=== PATIENT | female | born 1955 | race Caucasian/White ===

== ENCOUNTER → 2018-04-13 13:49 | Outpatient (CLI) | payer MEDICAID, SELFPAY ==
[2018-04-13 16:42] LABS: Anion Gap 12 (5-15); BUN 4 mg/dL (7-18); BUN/Creat Ratio 6.5 RATIO (10-20); Calcium,Total 9.3 mg/dL (8.5-10.1); Chloride 98 mmol/L (98-107); Cholesterol 170 mg/dL (200); Creatinine, Serum 0.62 mg/dL (0.55-1.02); EST Glomerular Filtration Rate 104 mL/min (>60); Est Glom Filt Rate - Afr Amer 126 mL/min (>60); Glucose 74 mg/dL (74-106); High Density Lipoprotein 90 mg/dL; Potassium 3.3 mmol/L (3.5-5.1); Sodium Level 138 mmol/L (136-145); Triglycerides 97 mg/dL; Very Low Density Lipoprotein 19 mg/dL (5-40)
== END ==
PROVIDERS: Visit Provider Family Medicine
DX: I10 Essential (primary) hypertension (principal); E78.5 Hyperlipidemia, unspecified
CPT/HCPCS: 36415; 80048; 80061

== ENCOUNTER → 2018-11-09 11:08 | Outpatient (CLI) | payer MEDICAID, SELFPAY ==
[2018-11-09 12:59] LABS: ALB/GLOB Ratio 1.1 RATIO (0.9-2.4); AST(SGOT) 31 U/L (15-37); Alanine Aminotransfer ALT/SGPT 23 U/L (13-56); Albumin, Serum 3.7 g/dL (3.2-5.0); Alkaline Phosphatase 94 U/L (45-117); Anion Gap 13 (5-15); BUN 5 mg/dL (7-18); BUN/Creat Ratio 7.8 RATIO (10-20); Calcium,Total 9.6 mg/dL (8.5-10.1); Chloride 99 mmol/L (98-107); Cholesterol 155 mg/dL (200); Creatinine, Serum 0.64 mg/dL (0.55-1.02); EST Glomerular Filtration Rate 99 mL/min (>60); Est Glom Filt Rate - Afr Amer 120 mL/min (>60); Globulin 3.5 g/dL (2.2-4.2); Glucose 108 mg/dL (74-106); High Density Lipoprotein 56 mg/dL; Potassium 3.9 mmol/L (3.5-5.1); Protein, Total 7.2 g/dL (6.4-8.2); Sodium Level 136 mmol/L (136-145); Triglycerides 95 mg/dL; Very Low Density Lipoprotein 19 mg/dL (5-40)
== END ==
PROVIDERS: Visit Provider Family Medicine
DX: E78.5 Hyperlipidemia, unspecified (principal)
CPT/HCPCS: 36415; 80053; 80061

== ENCOUNTER 2021-02-15 12:36 | Inpatient (IN) | payer MEDICARE, BC, SELFPAY ==
[2021-02-15] VITALS (10 sets, daily range): BP systolic 88–131; BP diastolic 65–93; PULSE 75–101; RESP 14–18; TEMP 35.8–37.1; O2SAT 97–100; BMI 19.5; BMI 19.8
--- NOTE | 2021-02-15 12:54 | EX.ED.DYSGE1 ---
HPI History of Present Illness Chief Complaint: Dizziness Informant: patient and spouse/S.O. Narrative Narrative: 66-year-old female presenting with 3 weeks of dizziness and leg heaviness. She notes that the past 6 months she has lost approximately 20 pounds most within the last 2 weeks she states. She notes nausea. She states she has been drinking fluids but she has been eating very little solid food for no particular reason. She notes that she felt like she was going to pass out today after the shower. She is a 2 pack-a-day smoker. She has not discussed this with her primary care physician. PFSH PFSH Medical History Hypertension Osteoarthritis Smoker Allergy/AdvReac Type Severity Reaction Status Date / Time No Known Allergies Allergy Verified 02/15/21 12:40 Social History Smoking Status: Heavy Smoker (>10/day) ROS ROS ED Constitutional Constitutional ED: Reports weight loss and other Details: Fatigue ; Denies chills Eyes Eyes: Denies change in vision or diplopia ENT ENT ED: Denies ear pain, rhinorrhea or sore throat Cardiovascular Cardiovascular: Denies chest pain, orthopnea, palpitations or racing heartbeat Respiratory/Chest Respiratory/Chest: Denies cough, dyspnea or orthopnea Gastrointestinal Gastrointestinal: Reports nausea; Denies abdominal pain, diarrhea or vomiting Genitourinary Genitourinary ED: Denies dysuria, hematuria or urinary frequency Musculoskeletal Musculoskeletal: Denies arthralgias or myalgias Integumentary Denies abscess or rash Neurologic Neurologic: Reports other Details: Dizziness ; Denies headache(s) or weakness Psychiatric Psychiatric: Denies anxiety, depression, suicidal ideation or suicidal thoughts Endocrine Endocrinology: Denies polydipsia, polyphagia or polyuria Allergic/Immunologic Allergic/Immunologic ED: Denies mouth swelling, tongue swelling or urticaria EXAM Physical Exam Const Vital Signs: 02/15/21 12:38 02/15/21 13:37 02/15/21 14:52 Temperature 96.4 F L Temperature Source Temporal Pulse Rate 98 85 Pulse Rate [Lying] 91 Pulse Rate [Sitting] 86 Pulse Rate [Standing] 101 H Respiratory Rate 18 14 Respiratory Effort Normal Respiratory Pattern Normal Blood Pressure 118/78 128/81 H Blood Pressure [Lying] 121/68 H Blood Pressure [Sitting] 107/88 H Blood Pressure [Standing] 88/65 L Blood Pressure Mean 91 96 Blood Pressure Mean [Lying] 85 Blood Pressure Mean [Sitting] 94 Blood Pressure Mean [Standing] 72 Pulse Ox 100 99 Oxygen Delivery Method Room Air Room Air 02/15/21 15:02 Temperature Temperature Source Pulse Rate 78 Pulse Rate [Lying] Pulse Rate [Sitting] Pulse Rate [Standing] Respiratory Rate 15 Respiratory Effort Respiratory Pattern Blood Pressure 89/76 L Blood Pressure [Lying] Blood Pressure [Sitting] Blood Pressure [Standing] Blood Pressure Mean 80 Blood Pressure Mean [Lying] Blood Pressure Mean [Sitting] Blood Pressure Mean [Standing] Pulse Ox 99 Oxygen Delivery Method Room Air Positive well nourished and well developed General Appearance ED: well developed HEENT Reports normocephalic, head/scalp atraumatic and moist mucous membranes Eyes PERRL and EOMs intact bilaterally Neck no lymphadenopathy, supple and no JVD Resp normal respiratory effort and clear to auscultation bilaterally Cardio regular rate, regular rhythm and no murmurs GI normal to inspection, nondistended, normoactive bowel sounds and non-tender Palpation: soft Back/Spine no CVA tenderness and normal ROM Extremity normal to inspection General Extremety ED: Negative for edema General Extremity: Negative for edema Neuro oriented x3 and CN's II-XII intact bilaterally Sensorium / Orientation: alert Motor Exam: strength 5/5 throughout Psych mental status grossly normal Mood & Affect: Negative for depressed or tearful Skin no rashes or lesions noted and no wounds MDM MDM MDM Narrative Medical decision making narrative: My interpretation of the patient's portable chest x-ray is no acute process. CT the brain was obtained to rule out central cause of her nausea/dizzy. CT of the abdomen pelvis demonstrates some mild inflammatory changes of the terminal ileum and cecum. I reexamined the patient her abdomen is benign. There is no focal tenderness there. Patient is orthostatic positive. Her hemoglobin is 9.8. Unfortunately I cannot find any recent hemoglobin levels to compare this to. Though her MCV is normal. Her Hemoccult is positive. However the stool is brown. Slight irregularities to her total bilirubin and her transaminases and alk phos. Troponin negative. Coags normal. Patient is orthostatic positive and received IV fluids. I spoke with our surgeon Dr. Worrell and with our hospitalist plan is admission Lab Data Attestation: I reviewed the patient's lab results. Labs: Laboratory Results - last 24 hr 02/15/21 02/15/21 02/15/21 13:30 13:31 13:31 WBC 7.4 RBC 3.17 L Hgb 9.8 L Hct 30.3 L MCV 95.6 MCH 30.9 MCHC 32.3 RDW Std Deviation 73.5 H RDW Coeff of Ismael 20.7 H Plt Count 239 MPV 9.8 Immature Gran % (Auto) 1.200 H Neut % (Auto) 74.7 H Lymph % (Auto) 10.8 L [place] % (Auto) 11.8 H Eos % (Auto) 1.1 Baso % (Auto) 0.4 Absolute Neuts (auto) 5.5 Absolute Lymphs (auto) 0.80 L Nucleated RBC % 0 Anisocytosis 1+ PT 13.2 INR 1.1 APTT 26.6 Sodium 131 L Potassium 3.2 L Chloride 98 Carbon Dioxide 22.0 Anion Gap 11 BUN 7 Creatinine 0.39 L Estim Creat Clear Calc 43.59 Est GFR (MDRD) Af Amer 212 Est GFR (MDRD) Non-Af 175 BUN/Creatinine Ratio 18.0 Glucose 100 Calcium 8.4 L Total Bilirubin 1.40 H AST 83 H ALT 10 L Alkaline Phosphatase 152 H Troponin I < 0.015 Total Protein 6.4 Albumin 2.7 L Globulin 3.7 Albumin/Globulin Ratio 0.7 L Lipase 107 Urine Color Urine Clarity Urine pH Ur Specific [place] Urine Protein Urine Glucose (UA) Urine Ketones Urine Occult Blood Urine Nitrite Urine Bilirubin Urine Urobilinogen Ur Leukocyte Esterase Urine RBC Urine WBC Ur Squamous Epith Cells Urine Bacteria Urine Mucus 02/15/21 14:51 WBC RBC Hgb Hct MCV MCH MCHC RDW Std Deviation RDW Coeff of Ismael Plt Count MPV Immature Gran % (Auto) Neut % (Auto) Lymph % (Auto) [place] % (Auto) Eos % (Auto) Baso % (Auto) Absolute Neuts (auto) Absolute Lymphs (auto) Nucleated RBC % Anisocytosis PT INR APTT Sodium Potassium Chloride Carbon Dioxide Anion Gap BUN Creatinine Estim Creat Clear Calc Est GFR (MDRD) Af Amer Est GFR (MDRD) Non-Af BUN/Creatinine Ratio Glucose Calcium Total Bilirubin AST ALT Alkaline Phosphatase Troponin I Total Protein Albumin Globulin Albumin/Globulin Ratio Lipase Urine Color Yellow Urine Clarity Clear Urine pH 8.0 Ur Specific [place] 1.010 Urine Protein Negative Urine Glucose (UA) Normal Urine Ketones 15 H Urine Occult Blood Negative Urine Nitrite Negative Urine Bilirubin Negative Urine Urobilinogen Normal Ur Leukocyte Esterase Negative Urine RBC 0 SEEN Urine WBC 0 SEEN Ur Squamous Epith Cells 0-5 SEEN Urine Bacteria RARE Urine Mucus 0 SEEN Radiography Diagnostic Testing: Radiology Impression Brain CT 02/15/21 13:16 IMPRESSION: Chronic involutional changes of the brain. Electronically Signed: Allen Leigh MD at 13:49 EDT , Service support , Chest X-Ray 02/15/21 13:20 IMPRESSION: No acute abnormality is seen. Electronically Signed: Allen Leigh MD at 13:52 EDT , Service support , Abdomen/Pelvis CT 02/15/21 14:23 IMPRESSION: Inflammatory changes are seen in the terminal ileum and cecal region. Inflammatory process should be ruled out. Minimal amount of free fluid is seen in the cul-de-sac. Electronically Signed: Allen Leigh MD at 14:49 EDT , Service support , EKG Initial EKG: Attestation: I personally reviewed and interpreted this EKG as follows: Comments: EKG shows a normal sinus rhythm at a rate of 94. Discharge Plan Dx/Rx/DC Orders Clinical Impression: GI bleed, Orthostatic hypotension, Anemia, Abnormal weight loss Disposition Disposition: Acute Care [facility]
--- NOTE | 2021-02-15 13:03 | EKG12_ITS ---
Test Reason : DIZZINESS Blood Pressure : / mmHG Vent. Rate : 094 BPM Atrial Rate : 094 BPM P-R Int : 130 ms QRS Dur : 070 ms QT Int : 370 ms P-R-T Axes : 080 014 070 degrees QTc Int : 462 ms Normal sinus rhythm Nonspecific ST and T wave abnormality Abnormal ECG Confirmed by NELY ARSHAD, COLBY ([id number]), writer editor LOUISA FLOREZ ([id number]) on 02/19/2021 2:49:53 PM Referred By: SHASTA/ Confirmed By:COLBY MCKAY MD
--- NOTE | 2021-02-15 13:16 | CT_ITS ---
STUDY: CT BRAIN WITHOUT CONTRAST REASON FOR EXAM: 3 week history of dizziness., 66 year old. Female RADIATION DOSAGE (If Supplied By Facility): CTDIvol = ( 38.43 ) mGy, DLP = ( 698.28 ) mGycm TECHNIQUE: Transaxial CT imaging of the brain was performed without administration of intravenous contrast material. Individualized dose optimization techniques were used for this CT. COMPARISON: No relevant priors. FINDINGS: Normal soft tissue structures. Normal calvarium. There is mild cerebral atrophy with widening of the extra-axial spaces and ventricular dilatation. There are areas of decreased attenuation within the white matter tracts of the supratentorial brain, consistent with microvascular disease changes. Normal basal ganglia and thalami. Normal brainstem. There is mild cerebellar atrophy. There is no intracranial hemorrhage. There are no findings of an acute ischemic infarction. Normal visualized paranasal sinuses. CT/Brain/Head without Contrast IMPRESSION: Chronic involutional changes of the brain. Electronically Signed: Allen Leigh MD at 13:49 EDT , Service support ,
--- NOTE | 2021-02-15 13:20 | RAD_ITS ---
STUDY: X-RAY CHEST REASON FOR EXAM: Dizziness., 66 year old. Female patient. TECHNIQUE: Single AP portable view of the chest. COMPARISON: None. FINDINGS: The lungs are clear and expanded. There is no demonstrated pleural abnormality. Normal size heart. Normal mediastinum and michele. Normal visualized pulmonary arteries. There is atherosclerotic tortuosity of the aortic arch and descending thoracic aorta. Normal visualized thoracic spine. Normal visualized ribs, clavicles, and shoulders. There is no demonstrated abnormality of the visualized soft tissue structures of the upper abdomen. RAD/Chest 1 View (Portable) IMPRESSION: No acute abnormality is seen. Electronically Signed: Allen Leigh MD at 13:52 EDT , Service support ,
[2021-02-15] MEDS: 0.9% Normal Saline 1,000 ML 1000 ML IV (13:36)
[2021-02-15] MEDS: Ondansetron 4 MG/2 ML Vial IV (13:36)
[2021-02-15 13:40] LABS: Absolute Neutrophil Count 5.5 X10^3/uL (2.0-7.7); Basophil# 0.03 X10^3/uL; Basophil% 0.4 % (0-1); Eosinophil# 0.08 X10^3/uL; Eosinophils% 1.1 % (0-5); Hematocrit 30.3 % (37-47); Hemoglobin 9.8 g/dL (12.0-15.0); Lymphocyte % 10.8 % (19-41); Mean Corp Hgb Conc 32.3 g/dL (32-36); Mean Corpuscular Hgb 30.9 pg (27.0-32.0); Mean Corpuscular Volume 95.6 fL (81-99); Mean Platelet Vol. 9.8 fl (6.2-12.0); Monocyte# 0.87 X10^3/uL; Monocyte% 11.8 % (0-10); NRBC Flagged by Analyzer 0 % (0-5); Neutrophil # 5.51 X10^3/uL (2.7-7.7); Neutrophil % 74.7 % (47-70); POSITIVE MORPHOLOGY YES; Platelet Count 239 K/mm3 (150-450); RBC Distribution Width CV 20.7 % (11.6-14.6); RBC Distribution Width SD 73.5 fl (35.1-43.9); Red Blood Count 3.17 M/mm3 (4.2-5.4); White Blood Count 7.4 K/mm3 (4.4-11.0)
[2021-02-15 13:42] LABS: Differential Indicated SCAN CRITERIA MET
[2021-02-15 13:56] LABS: International Normalized Ratio 1.1; Prothrombin Time (Protime)PT. 13.2 SECONDS (11.7-14.9)
[2021-02-15 13:57] LABS: Partial Thromboplast Time 26.6 Seconds (24.1-36.2)
[2021-02-15 14:04] LABS: ALB/GLOB Ratio 0.7 RATIO (0.9-2.4); AST(SGOT) 83 U/L (15-37); Alanine Aminotransfer ALT/SGPT 10 U/L (13-56); Albumin, Serum 2.7 g/dL (3.2-5.0); Alkaline Phosphatase 152 U/L (45-117); Anion Gap 11 (5-15); BUN 7 mg/dL (7-18); Calcium,Total 8.4 mg/dL (8.5-10.1); Chloride 98 mmol/L (98-107); Creatinine, Serum 0.39 mg/dL (0.55-1.02); EST Glomerular Filtration Rate 175 mL/min (>60); Est Glom Filt Rate - Afr Amer 212 mL/min (>60); Estimated Creatinine Clearance 43.59 ml/min; Globulin 3.7 g/dL (2.2-4.2); Glucose 100 mg/dL (74-106); Lipase 107 U/L (73-393); Potassium 3.2 mmol/L (3.5-5.1); Protein, Total 6.4 g/dL (6.4-8.2); Sodium Level 131 mmol/L (136-145)
--- NOTE | 2021-02-15 14:23 | CT_ITS ---
STUDY: CT ABDOMEN AND PELVIS WITH CONTRAST REASON FOR EXAM: Female, 66 years old. Nausea and weight loss. RADIATION DOSAGE (If Supplied By Facility): CTDIvol = ( 13.18 ) mGy, DLP = ( 324.50 ) mGycm TECHNIQUE: Transaxial images were obtained from the dome of the diaphragm to the symphysis pubis without oral contrast. IV 100mL [id number]-300 was administered. Sagittal and coronal images were reconstructed. Individualized dose optimization techniques were used for this CT. COMPARISON: None. FINDINGS: The visualized lung bases are unremarkable. The visualized portions of the heart are within normal limits. There is decreased attenuation of the liver consistent with steatosis. Normal gallbladder and extrahepatic biliary system. Normal spleen. Normal pancreas. Normal bilateral adrenal glands. Normal right kidney. Normal left kidney. There is a small hiatal hernia. Mild degree of inflammatory changes seen in the region of the terminal ileum as well as the cecum. Inflammatory process should be ruled out. The appendix is visualized and appears normal. There is scattered atherosclerotic calcification of the abdominal aorta, without a demonstrated aneurysm. Normal inferior vena cava. Normal retroperitoneum. Normal urinary bladder. Minimal amount of free fluid is seen in the cul-de-sac. There is evidence of bilateral tubal clip ligation. Normal abdominal wall. There are mild degenerative changes of the visualized lumbar spine. CT/Abdomen/Pelvis W IV Cont ONLY IMPRESSION: Inflammatory changes are seen in the terminal ileum and cecal region. Inflammatory process should be ruled out. Minimal amount of free fluid is seen in the cul-de-sac. Electronically Signed: Allen Leigh MD at 14:49 EDT , Service support ,
--- NOTE | 2021-02-15 14:23 | NURSING ---
NO OLD EKGS
[2021-02-15 14:26] LABS: Anisocytosis 1+
[2021-02-15 14:59] LABS: Mucous, Urine 0 SEEN /hpf (<or=2+); Red Blood Cells-Urine 0 SEEN /hpf (0-5); White Blood Cells 0 SEEN /hpf (0-5)
[2021-02-15 15:18] LABS: Color, Urine Yellow (Yellow); Glucose, Dipstick Normal (Normal); Ketone-Dipstick 15 mg/dl (Negative); Leukocyte Esterase-Dipstick Negative /ul (Negative); Nitrite-Dipstick Negative (Negative); Occult Blood-Urine Negative /ul (Negative); Protein-Dipstick Negative (Negative); Urine Bilirubin Dipstick Negative (Negative); Urine Clarity Clear (Clear); Urine Urobilinogen Normal (Normal)
[2021-02-15 15:48] LABS: Bacteria RARE /hpf (None Seen); Squamous Epithelial Cells - UA 0-5 SEEN /hpf (5-10)
[2021-02-15] MEDS: 0.9% Normal Saline 1,000 ML 999 ML IV (16:09)
--- NOTE | 2021-02-15 17:29 | PCM.HP.STD ---
[facility] - General General Date of Admission: 02/15/21 Chief Complaint: Weakness, dizziness. [facility] Narrative VEENA STEPHENSON, is a 66 F with past medical history as mentioned below presented to the emergency room because of weakness and dizziness. Her symptoms started around 3 weeks ago with vague generalized weakness and tiredness, associated with dizziness upon standing, has been progressively increasing and today, she tried to stand up, felt dizzy and she was about to pass out. She stated that her legs have been heavy with difficulty walking. She denied chest pain, shortness of breath, syncope or loss of consciousness. She reported constipation with dark stools but now this, her stool has been normal and brown. She reported weight loss of about 20 pounds in the last 2 to 3 weeks but also reported poor appetite. She denied hemoptysis, hematemesis, hematuria or hematochezia. In the emergency department, initial blood pressure was stable and then started to come down. Her orthostatic vitals were positive for orthostatic hypotension. She was afebrile, not tachycardic, pulse ox was 99% on room air. Routine blood work was remarkable for hemoglobin of 9.8 g/dL, sodium was 131, potassium is 3.2. LFT revealed bilirubin of 1.4, AST 83, ALT was 10 and alk phos was 152. EKG revealed normal sinus rhythm without evidence of acute ischemic changes. CT scan brain showed no acute infarct or hemorrhage. Chest x-ray showed no acute findings. CT scan abdomen and pelvis with contrast revealed normal gallbladder, normal extrahepatic biliary system, inflammatory changes of the terminal ileum and cecal region. Patient is being admitted for anemia probably due to GI bleed, orthostatic hypotension and ileal and cecal inflammatory changes on the CT scan abdomen. [facility] Medical History Hypertension Osteoarthritis Smoker Home Medications amlodipine 5 mg PO DAILY 02/15/21 [History Last Taken 02/15/21] atorvastatin 20 mg PO DAILY 02/15/21 [History Last Taken 02/15/21] latanoprost 1 drp EACH EYE BID 02/15/21 [History Last Taken 02/15/21] metoprolol succinate 50 mg PO DAILY 02/15/21 [History Last Taken 02/15/21] triamterene-hydrochlorothiazid 1 tab PO DAILY 02/15/21 [History Last Taken 02/15/21] Allergy/AdvReac Type Severity Reaction Status Date / Time No Known Allergies Allergy Verified 02/15/21 12:40 no significant family history no surgical history Social History (Updated 02/15/21 @ 17:[address] Bayron Holloway MD) Smoking Status: Heavy Smoker (>10/day) details: She drinks alcohol occasionally. She did not drink for the last 4 weeks. ROS Constitutional Constitutional: Reports anorexia, change in weight, fatigue, weakness and other; Denies chills, fever(s) or malaise Eyes Eyes: Denies blurry vision, change in eye color, change in vision, double vision or eye pain ENT HEENT: Denies ear pain, epistaxis, headache(s), nasal congestion, post nasal drip or sore throat Cardiovascular Cardiovascular: Reports lightheadedness; Denies chest pain, dyspnea on exertion, edema, orthopnea, palpitations, paroxysmal nocturnal dyspnea or syncope Respiratory/Chest Respiratory/Chest: Denies cough, dyspnea, hemoptysis, productive cough, shortness of breath at rest, shortness of breath with exertion or wheezing Gastrointestinal Gastrointestinal: Reports constipation and melena; Denies abdominal pain, diarrhea, hematemesis, hematochezia, nausea or vomiting Genitourinary Genitourinary: Denies burning urination, dysuria, hematuria, urinary hesitancy or urinary urgency Musculoskeletal Musculoskeletal: Denies arthralgias, back pain, joint pain, joint swelling, myalgias or neck pain Neurologic Neurologic: Denies confusion, dizziness, focal weakness, headache(s), numbness, paresthesias, seizures, tingling or tremor(s) Psychiatric Psychiatric: Denies anxiety, depression, homicidal ideation or suicidal ideation Endocrine Endocrinology: Denies change in body appearance, cold intolerance, heat intolerance, polydipsia or polyuria Hematologic/Lymphatic Hematologic/Lymphatic: Reports other; Denies easy bleeding, easy bruising or lymphadenopathy Allergic/Immunologic Allergic/Immunologic: Denies itchy eyes, rhinitis, throat swelling, tongue swelling, hives, urticaria or wheezing Vital Signs Vital Signs Vital Signs: 02/15/21 12:38 02/15/21 13:37 02/15/21 14:52 Temperature 96.4 F L Temperature Source Temporal Pulse Rate 98 85 Pulse Rate [Lying] 91 Pulse Rate [Sitting] 86 Pulse Rate [Standing] 101 H Respiratory Rate 18 14 Respiratory Effort Normal Respiratory Pattern Normal Blood Pressure 118/78 128/81 H Blood Pressure [Lying] 121/68 H Blood Pressure [Sitting] 107/88 H Blood Pressure [Standing] 88/65 L Blood Pressure Mean 91 96 Blood Pressure Mean [Lying] 85 Blood Pressure Mean [Sitting] 94 Blood Pressure Mean [Standing] 72 Pulse Ox 100 99 Oxygen Delivery Method Room Air Room Air 02/15/21 15:02 Temperature Temperature Source Pulse Rate 78 Pulse Rate [Lying] Pulse Rate [Sitting] Pulse Rate [Standing] Respiratory Rate 15 Respiratory Effort Respiratory Pattern Blood Pressure 89/76 L Blood Pressure [Lying] Blood Pressure [Sitting] Blood Pressure [Standing] Blood Pressure Mean 80 Blood Pressure Mean [Lying] Blood Pressure Mean [Sitting] Blood Pressure Mean [Standing] Pulse Ox 99 Oxygen Delivery Method Room Air Physical Exam Const alert, oriented x3, no apparent distress and no limitations General Appearance: cooperative, comfortable and well kempt HEENT normocephalic, head/scalp atraumatic and moist oral mucous membranes Head and Scalp: normocephalic and atraumatic Eyes PERRL, EOMs intact bilaterally, conjunctivae normal and no scleral icterus General Eye: normal appearance of both eyes Periorbital: periorbital findings normal Neck no lymphadenopathy, supple, no meningeal signs, no JVD and no carotid bruits General: trachea midline Thyroid: thyroid normal Resp normal respiratory effort, normal air movement and clear to auscultation bilaterally Auscultation: Negative for crackles, rales, rhonchi or wheezes Cardio regular rate, regular rhythm, S1 normal heart sound, S2 normal heart sound, no murmurs and no JVD Peripheral Pulses: pulses 2+ throughout GI normal to inspection, nondistended, normoactive bowel sounds, soft to palpation, non-tender and non-distended; Negative for hepatosplenomegaly Auscultation: normoactive bowel sounds Extremity normal to inspection, full ROM and no clubbing, cyanosis or edema Skin no rashes or lesions noted, no wounds and no petechiae Neuro oriented x3, CN's II-XII intact bilaterally and moves all extremities Sensorium / Orientation: alert Speech: speech normal Motor Exam: strength 5/5 throughout Psych mental status grossly normal, affect normal and denies hallucinations Lab / Micro Data Result Diagrams: 02/15/21 13:31 02/15/21 13:30 Labs: Laboratory Results - last 24 hr 02/15/21 02/15/21 02/15/21 13:30 13:31 13:31 WBC 7.4 RBC 3.17 L Hgb 9.8 L Hct 30.3 L MCV 95.6 MCH 30.9 MCHC 32.3 RDW Std Deviation 73.5 H RDW Coeff of Ismael 20.7 H Plt Count 239 MPV 9.8 Immature Gran % (Auto) 1.200 H Neut % (Auto) 74.7 H Lymph % (Auto) 10.8 L [place] % (Auto) 11.8 H Eos % (Auto) 1.1 Baso % (Auto) 0.4 Absolute Neuts (auto) 5.5 Absolute Lymphs (auto) 0.80 L Nucleated RBC % 0 Anisocytosis 1+ PT 13.2 INR 1.1 APTT 26.6 Sodium 131 L Potassium 3.2 L Chloride 98 Carbon Dioxide 22.0 Anion Gap 11 BUN 7 Creatinine 0.39 L Estim Creat Clear Calc 43.59 Est GFR (MDRD) Af Amer 212 Est GFR (MDRD) Non-Af 175 BUN/Creatinine Ratio 18.0 Glucose 100 Calcium 8.4 L Total Bilirubin 1.40 H AST 83 H ALT 10 L Alkaline Phosphatase 152 H Troponin I < 0.015 Total Protein 6.4 Albumin 2.7 L Globulin 3.7 Albumin/Globulin Ratio 0.7 L Lipase 107 Urine Color Urine Clarity Urine pH Ur Specific [place] Urine Protein Urine Glucose (UA) Urine Ketones Urine Occult Blood Urine Nitrite Urine Bilirubin Urine Urobilinogen Ur Leukocyte Esterase Urine RBC Urine WBC Ur Squamous Epith Cells Urine Bacteria Urine Mucus 02/15/21 14:51 WBC RBC Hgb Hct MCV MCH MCHC RDW Std Deviation RDW Coeff of [place] Plt Count MPV Immature Gran % (Auto) Neut % (Auto) Lymph % (Auto) [place] % (Auto) Eos % (Auto) Baso % (Auto) Absolute Neuts (auto) Absolute Lymphs (auto) Nucleated RBC % Anisocytosis PT INR APTT Sodium Potassium Chloride Carbon Dioxide Anion Gap BUN Creatinine Estim Creat Clear Calc Est GFR (MDRD) Af Amer Est GFR (MDRD) Non-Af BUN/Creatinine Ratio Glucose Calcium Total Bilirubin AST ALT Alkaline Phosphatase Troponin I Total Protein Albumin Globulin Albumin/Globulin Ratio Lipase Urine Color Yellow Urine Clarity Clear Urine pH 8.0 Ur Specific [place] 1.010 Urine Protein Negative Urine Glucose (UA) Normal Urine Ketones 15 H Urine Occult Blood Negative Urine Nitrite Negative Urine Bilirubin Negative Urine Urobilinogen Normal Ur Leukocyte Esterase Negative Urine RBC 0 SEEN Urine WBC 0 SEEN Ur Squamous Epith Cells 0-5 SEEN Urine Bacteria RARE Urine Mucus 0 SEEN Micro: Microbiology 02/15/21 16:21 Stool Occult Blood (DARNELL) - Final Stool Occult Blood Positive Radiology Impression Brain CT 02/15/21 13:16 IMPRESSION: Chronic involutional changes of the brain. Electronically Signed: Allen Leigh MD at 13:49 EDT , Service support , Chest X-Ray 02/15/21 13:20 IMPRESSION: No acute abnormality is seen. Electronically Signed: Allen Leigh MD at 13:52 EDT , Service support , Abdomen/Pelvis CT 02/15/21 14:23 IMPRESSION: Inflammatory changes are seen in the terminal ileum and cecal region. Inflammatory process should be ruled out. Minimal amount of free fluid is seen in the cul-de-sac. Electronically Signed: Allen Leigh MD at 14:49 EDT , Service support , Assessment & Plan Assessment/Plan (1) GI bleed: (2) Orthostatic hypotension: (3) Anemia: (4) Abnormal weight loss: (5) Hyperlipidemia: (6) HTN (hypertension): PLAN: This is a 66 years old female patient presented to the emergency room because of weakness, dizziness and weight loss, found to have anemia related to GI bleed and also found to have inflammatory changes of the terminal ileum and cecum and she is being admitted for evaluation and treatment. #1 anemia/GI bleed: Patient reported melena days ago but now she has normal brown stool. Stool positive for occult blood. It is normocytic anemia. Admission globin is 9.8 g/dL, hemoglobin was 15.8 on December,. EKG reviewed, was unremarkable. Plan: Admit to PCU, cardiac monitoring, gentle IV fluids for hydration, start IV Protonix, type and crossmatch 1 unit of packed RBCs, transfuse if hemoglobin is than 8 g/dL, H&H every 8 hours x3, serum iron, TIBC, serum ferritin, B12, RBC folate, general surgery consult, repeat CBC and CMP tomorrow morning, PT OT evaluation and treatment. #2 orthostatic hypotension: Blood pressure improved with IV fluids but still orthostatic positive. Patient has been on Norvasc, metoprolol and HCTZ/triamterene. EKG reviewed, was unremarkable. This is probably due to blood loss in addition to be on 3 different antihypertensive medications. Plan: Gentle IV fluids, hold antihypertensive medications, orthostatic vitals tomorrow morning. #3 inflammation of the terminal ileum and cecum: This was seen on CT scan abdomen, nonspecific. Patient denied any diarrhea, reported constipation. Plan as above. #4 hypokalemia: Replace potassium with IV potassium chloride, check serum magnesium. #5 hypertension: Currently, blood pressure stabilized, plan as above, hold antihypertensive as above. #6 hyperlipidemia: Continue statins. #7 DVT prophylaxis: SCDs. This note was generated with [employer] dictation software. It may contain incorrect words, spelling, and punctuation that were not noted in checking the note before signing. Visit Charges Inpatient E&M: 41860 Init Hosp L3
[2021-02-15 19:18] LABS: Hematocrit 28.6 % (37-47); Hemoglobin 9.2 g/dL (12.0-15.0)
[2021-02-15] MEDS: 0.9% Normal Saline 1,000 ML 75 ML IV (19:27)
[2021-02-15] MEDS: 0.9% Saline Lock 10 ML Syringe IV (19:27)
[2021-02-15 19:34] LABS: Ferritin 1460 ng/mL (8-252); Iron Binding Capacity,Total 257 ug/dL (250-450); Magnesium 1.6 mg/dL (1.6-2.6); Thyroid Stim Hormone (TSH) 3.65 uIU/mL (0.358-3.74)
[2021-02-15] MEDS: Potassium Chloride 10mEq/100mL 10 MEQ/100 ML IV.SOLN. 100 MEQ IV BOLUS ×2 (20:49→22:20)
[2021-02-15] MEDS: Ensure Clear 120 ML Liquid PO (21:55)
[2021-02-15] MEDS: Latanoprost 0.005% 1 Bottle 1 DRP EACH EYE (21:57)
[2021-02-16] VITALS (23 sets, daily range): BP systolic 97–140; BP diastolic 7–86; PULSE 63–98; RESP 14–18; TEMP 36.3–37.2; O2SAT 99–100
--- NOTE | 2021-02-16 | GASB_PTH ---
PATIENT: VEENA STEPHENSON LOC: [facility] U#:[id number] AGE/SX: 66/F ROOM: [facility] RE02/15/[address]: Dr. Mario Mchugh DO : 1955 BED: 1 DIS: 02/17/2021 SPEC #: [id number] RECD: 02/16/21 13:59 STATUS: SONYA REJose #: [id number] MICHELLE: 02/16/21 00:[address]: Lula Márquez DEPT: SURGICAL PATHOLOGY RECD BY: Basim Glynn ENTERED: 02/16/21 13:59 SP TYPE: Gastric Bx OTHR DR: MD Dr. Mario Sandoval DO Dr. Paul Nielsen, MD Dr. Tamera Robotham, MD Tissues: Gastric mucous membrane Procedures: Surgery Specimen Level IV Comments: @ Ordering doctor for SUIV edited from to @ by JACINTA at 02/16/21 1544 @ Submitting doctor edited from to @ by RGOOD at 02/16/21 1544 HEADER OPERATION: [place] [place]OP DIAGNOSIS: GI bleed, anemia TISSUE SUBMITTED: Antrum biopsy for H. pylori and path MICROSCOPIC DIAGNOSIS Gastric antrum, biopsy: Chronic gastritis. See comment. AM:monisha 02/19/2021 COMMENT The results of immunohistochemistry for Helicobacter pylori will be reported separately ([id number]). MICROSCOPIC DESCRIPTION Slides are reviewed. GROSS DESCRIPTION Received in fixative is one container labeled with the patient's name and designated antrum biopsy. The specimen consists of one irregular fragment of light donald soft tissue that measures 0.3 x 0.2 x 0.1 cm. The specimen is totally submitted in one cassette. / SJ:monisha 02/16/21 TC:3 CPT: 26004
[2021-02-16 00:49] LABS: Hematocrit 24.6 % (37-47)
[2021-02-16 05:47] LABS: Absolute Lymphocyte Count 1.21 X10^3/uL (0.83-4.51); Absolute Neutrophil Count 2.9 X10^3/uL (2.0-7.7); Basophil# 0.03 X10^3/uL; Basophil% 0.6 % (0-1); Eosinophil# 0.09 X10^3/uL; Eosinophils% 1.8 % (0-5); Hematocrit 25.8 % (37-47); Hemoglobin 8.3 g/dL (12.0-15.0); Lymphocyte # 1.21 X10^3/ul (0.83-4.51); Lymphocyte % 24.3 % (19-41); Mean Corp Hgb Conc 32.2 g/dL (32-36); Mean Corpuscular Hgb 30.7 pg (27.0-32.0); Mean Corpuscular Volume 95.6 fL (81-99); Mean Platelet Vol. 10.3 fl (6.2-12.0); Monocyte# 0.68 X10^3/uL; Monocyte% 13.7 % (0-10); NRBC Flagged by Analyzer 0 % (0-5); Neutrophil # 2.91 X10^3/uL (2.7-7.7); Neutrophil % 58.4 % (47-70); POSITIVE MORPHOLOGY YES; Platelet Count 225 K/mm3 (150-450); RBC Distribution Width SD 74.8 fl (35.1-43.9)
[2021-02-16 06:03] LABS: Differential Indicated SCAN CRITERIA MET
[2021-02-16 06:12] LABS: ALB/GLOB Ratio 0.8 RATIO (0.9-2.4); AST(SGOT) 64 U/L (15-37); Alanine Aminotransfer ALT/SGPT 8 U/L (13-56); Albumin, Serum 2.3 g/dL (3.2-5.0); Alkaline Phosphatase 123 U/L (45-117); Anion Gap 10 (5-15); BUN 3 mg/dL (7-18); BUN/Creat Ratio 12.2 RATIO (10-20); Calcium,Total 7.5 mg/dL (8.5-10.1); Chloride 104 mmol/L (98-107); Creatinine, Serum 0.25 mg/dL (0.55-1.02); EST Glomerular Filtration Rate 297 mL/min (>60); Est Glom Filt Rate - Afr Amer 360 mL/min (>60); Estimated Creatinine Clearance 44.46 ml/min; Globulin 2.8 g/dL (2.2-4.2); Glucose 87 mg/dL (74-106); Protein, Total 5.1 g/dL (6.4-8.2); Sodium Level 137 mmol/L (136-145)
[2021-02-16 06:29] LABS: Anisocytosis 1+; Differential Comment SCANNED
[2021-02-16 06:30] LABS: Hypochromasia 2+
[2021-02-16] MEDS: Potassium Chloride Oral Tablet 20 MEQ 60 MEQ PO (07:02)
--- NOTE | 2021-02-16 08:14 | CON.PCM.SX_ITS ---
Assessment & Plan Assessment/Plan (1) GI bleed: (2) Orthostatic hypotension: (3) Anemia: PLAN: Currently patient denies any black stools or bright red stools. Patient dates stools have been brown. Patient states about 4 weeks ago she did have black stools denies taking Pepto-Bismol. We will plan to do an EGD today. Patient can have an outpatient follow-up colonoscopy with either me or Dr. Chavis. As Dr. Chavis did her last colonoscopy 5 years ago. Patient at that time she had a small polyp. I have discussed the above with the patient. I have offered the patient EGD for evaluation. I have explained the risks/benefits of the procedure and described the procedure. I have discussed the risks with the patient, including but not limited to: infection, bleeding, perforation of the GI tract requiring e mergency surgery, inability to complete the procedure, injury to any internal organs, complications of anesthesia, etc. - the patient understands and agrees to proceed. I have answered all the patient's questions to the patient's satisfaction and the patient has no further questions. Lula Márquez M.D. Pager: [phone] [facility] [address] [place] [address], [address] [place] [address] Office: [phone] . HPI Consult Data Date of Consult: 02/16/21 HPI Narrative HPI Narrative: VEENA STEPHENSON, is a 66 F who presented to the ER due to dizziness, weakness, legs are heavy. Patient notes this has been ongoing for about 2 weeks. Patient states about 4 weeks ago she did have some black stool x1 day after then she is had bowel movements about every other day which have been normal and brown. Patient denies any previous black or bloody stools. Patient's last colonoscopy was about [address] Chavis there is maybe 1 polyp per patient. Patient states her last EGD was about 30 years ago. Patient denies any reflux or heartburn unless she eats certain food. Patient's hemoglobin on admission was 9.8 currently is 8.3. Patient denies any abdominal pain currently or during this time. CT abdomen pelvis question whether could be some inflammation of the terminal ileum and cecum however this area is not distended on CAT scan patient has no pain this area nor has not had any pain in this area during this time. [facility] Medical History Anemia Hypertension Osteoarthritis Smoker Home Medications amlodipine 5 mg PO DAILY 02/15/21 [History Last Taken 02/15/21] atorvastatin 20 mg PO DAILY 02/15/21 [History Last Taken 02/15/21] latanoprost 1 drp EACH EYE BID 02/15/21 [History Last Taken 02/15/21] metoprolol succinate 50 mg PO DAILY 02/15/21 [History Last Taken 02/15/21] triamterene-hydrochlorothiazid 1 tab PO DAILY 02/15/21 [History Last Taken 02/15/21] Allergy/AdvReac Type Severity Reaction Status Date / Time bee venom protein (honey bee) Allergy Hives Verified 02/15/21 18:57 Social History (Updated 02/15/21 @ 17:[address] Bayron Holloway MD) Smoking Status: Current every day smoker details: She drinks alcohol occasionally. She did not drink for the last 4 weeks. ROS Constitutional Constitutional: Reports daytime sleepiness ENT HEENT: Reports dizziness Cardiovascular Cardiovascular: Denies chest pain Respiratory/Chest Respiratory/Chest: Denies shortness of breath at rest Gastrointestinal Gastrointestinal: Reports anorexia; Denies abdominal pain, constipation, diarrhea, heartburn, hematemesis, melena, nausea or vomiting Genitourinary Genitourinary: Denies burning urination Musculoskeletal Musculoskeletal: Denies joint pain Integumentary Integumentary: Denies rash Neurologic Neurologic: Reports dizziness; Denies abnormal speech Endocrine Endocrinology: Denies palpitations Hematologic/Lymphatic Hematologic/Lymphatic: Reports anemia; Denies easy bleeding or easy bruising Lab / Micro Data Result Diagrams: 02/16/21 05:20 02/16/21 05:20 Labs: Laboratory Results - last 24 hr 02/15/21 02/15/21 02/15/21 13:30 13:30 13:31 WBC 7.4 RBC 3.17 L Hgb 9.8 L Hct 30.3 L MCV 95.6 MCH 30.9 MCHC 32.3 RDW Std Deviation 73.5 H RDW Coeff of Ismael 20.7 H Plt Count 239 MPV 9.8 Immature Gran % (Auto) 1.200 H Neut % (Auto) 74.7 H Lymph % (Auto) 10.8 L [place] % (Auto) 11.8 H Eos % (Auto) 1.1 Baso % (Auto) 0.4 Absolute Neuts (auto) 5.5 Absolute Lymphs (auto) 0.80 L Nucleated RBC % 0 Differential Comment Hypochromasia Anisocytosis 1+ PT INR APTT Sodium 131 L Potassium 3.2 L Chloride 98 Carbon Dioxide 22.0 Anion Gap 11 BUN 7 Creatinine 0.39 L Estim Creat Clear Calc 43.59 Est GFR (MDRD) Af Amer 212 Est GFR (MDRD) Non-Af 175 BUN/Creatinine Ratio 18.0 Glucose 100 Calcium 8.4 L Magnesium 1.6 TIBC 257 Ferritin 1460 H Total Bilirubin 1.40 H AST 83 H ALT 10 L Alkaline Phosphatase 152 H Troponin I < 0.015 Total Protein 6.4 Albumin 2.7 L Globulin 3.7 Albumin/Globulin Ratio 0.7 L Lipase 107 TSH 3.65 Urine Color Urine Clarity Urine pH Ur Specific [place] Urine Protein Urine Glucose (UA) Urine Ketones Urine Occult Blood Urine Nitrite Urine Bilirubin Urine Urobilinogen Ur Leukocyte Esterase Urine RBC Urine WBC Ur Squamous Epith Cells Urine Bacteria Urine Mucus Blood Type Antibody Screen Crossmatch 02/15/21 02/15/21 02/15/21 13:31 14:51 18:45 WBC RBC Hgb Hct MCV MCH MCHC RDW Std Deviation RDW Coeff of Ismael Plt Count MPV Immature Gran % (Auto) Neut % (Auto) Lymph % (Auto) [place] % (Auto) Eos % (Auto) Baso % (Auto) Absolute Neuts (auto) Absolute Lymphs (auto) Nucleated RBC % Differential Comment Hypochromasia Anisocytosis PT 13.2 INR 1.1 APTT 26.6 Sodium Potassium Chloride Carbon Dioxide Anion Gap BUN Creatinine Estim Creat Clear Calc Est GFR (MDRD) Af Amer Est GFR (MDRD) Non-Af BUN/Creatinine Ratio Glucose Calcium Magnesium TIBC Ferritin Total Bilirubin AST ALT Alkaline Phosphatase Troponin I Total Protein Albumin Globulin Albumin/Globulin Ratio Lipase TSH Urine Color Yellow Urine Clarity Clear Urine pH 8.0 Ur Specific [place] 1.010 Urine Protein Negative Urine Glucose (UA) Normal Urine Ketones 15 H Urine Occult Blood Negative Urine Nitrite Negative Urine Bilirubin Negative Urine Urobilinogen Normal Ur Leukocyte Esterase Negative Urine RBC 0 SEEN Urine WBC 0 SEEN Ur Squamous Epith Cells 0-5 SEEN Urine Bacteria RARE Urine Mucus 0 SEEN Blood Type O POSITIVE Antibody Screen NEGATIVE Crossmatch See Detail 02/15/21 02/16/21 02/16/21 18:45 00:40 05:20 WBC 5.0 RBC 2.70 L Hgb 9.2 L 8.0 L 8.3 L Hct 28.6 L 24.6 L 25.8 L MCV 95.6 MCH 30.7 MCHC 32.2 RDW Std Deviation 74.8 H RDW Coeff of Ismael 21.0 H Plt Count 225 MPV 10.3 Immature Gran % (Auto) 1.200 H Neut % (Auto) 58.4 Lymph % (Auto) 24.3 [place] % (Auto) 13.7 H Eos % (Auto) 1.8 Baso % (Auto) 0.6 Absolute Neuts (auto) 2.9 Absolute Lymphs (auto) 1.21 Nucleated RBC % 0 Differential Comment SCANNED Hypochromasia 2+ Anisocytosis 1+ PT INR APTT Sodium Potassium Chloride Carbon Dioxide Anion Gap BUN Creatinine Estim Creat Clear Calc Est GFR (MDRD) Af Amer Est GFR (MDRD) Non-Af BUN/Creatinine Ratio Glucose Calcium Magnesium TIBC Ferritin Total Bilirubin AST ALT Alkaline Phosphatase Troponin I Total Protein Albumin Globulin Albumin/Globulin Ratio Lipase TSH Urine Color Urine Clarity Urine pH Ur Specific [place] Urine Protein Urine Glucose (UA) Urine Ketones Urine Occult Blood Urine Nitrite Urine Bilirubin Urine Urobilinogen Ur Leukocyte Esterase Urine RBC Urine WBC Ur Squamous Epith Cells Urine Bacteria Urine Mucus Blood Type Antibody Screen Crossmatch 02/16/21 05:20 WBC RBC Hgb Hct MCV MCH MCHC RDW Std Deviation RDW Coeff of Ismael Plt Count MPV Immature Gran % (Auto) Neut % (Auto) Lymph % (Auto) [place] % (Auto) Eos % (Auto) Baso % (Auto) Absolute Neuts (auto) Absolute Lymphs (auto) Nucleated RBC % Differential Comment Hypochromasia Anisocytosis PT INR APTT Sodium 137 Potassium 3.0 L Chloride 104 Carbon Dioxide 23.0 Anion Gap 10 BUN 3 L Creatinine 0.25 L Estim Creat Clear Calc 44.46 Est GFR (MDRD) Af Amer 360 Est GFR (MDRD) Non-Af 297 BUN/Creatinine Ratio 12.2 Glucose 87 Calcium 7.5 L Magnesium TIBC Ferritin Total Bilirubin 0.90 AST 64 H ALT 8 L Alkaline Phosphatase 123 H Troponin I Total Protein 5.1 L Albumin 2.3 L Globulin 2.8 Albumin/Globulin Ratio 0.8 L Lipase TSH Urine Color Urine Clarity Urine pH Ur Specific [place] Urine Protein Urine Glucose (UA) Urine Ketones Urine Occult Blood Urine Nitrite Urine Bilirubin Urine Urobilinogen Ur Leukocyte Esterase Urine RBC Urine WBC Ur Squamous Epith Cells Urine Bacteria Urine Mucus Blood Type Antibody Screen Crossmatch Micro: Microbiology 02/15/21 16:21 Stool Occult Blood (DARNELL) - Final Stool Occult Blood Positive Radiology Impression Brain CT 02/15/21 13:16 IMPRESSION: Chronic involutional changes of the brain. Electronically Signed: Allen Leigh MD at 13:49 EDT , Service support , Chest X-Ray 02/15/21 13:20 IMPRESSION: No acute abnormality is seen. Electronically Signed: Allen Leigh MD at 13:52 EDT , Service support , Abdomen/Pelvis CT 02/15/21 14:23 IMPRESSION: Inflammatory changes are seen in the terminal ileum and cecal region. Inflammatory process should be ruled out. Minimal amount of free fluid is seen in the cul-de-sac. Electronically Signed: Allen Leigh MD at 14:49 EDT , Service support , Procedure Criteria Type of Procedure Procedure Type: Elective Elective Risks - COVID COVID Risk Discussion: The surgeon/proceduralist and patient have discussed in detail the risk of exposure to and/or potential harm posed by the COVID-19 virus with having a surgery/procedure at this time versus the risk of delaying the surgery/procedure. It is not possible to know either the risk of delaying the surgery or procedure or chance of getting an infection with perfect accuracy, but a joint decision was made between the patient and the surgeon/proceduralist to proceed at this time with the scheduled surgery/procedure as indicated on the consent form. Charges/Coding Visit Charges Inpatient E&M: 30205 Init Hosp L2
[2021-02-16 08:53] LABS: Hematocrit 26.8 % (37-47); Hemoglobin 8.6 g/dL (12.0-15.0)
--- NOTE | 2021-02-16 09:00 | EKG12_ITS ---
Test Reason : PRE OP Blood Pressure : / mmHG Vent. Rate : 079 BPM Atrial Rate : 079 BPM P-R Int : 132 ms QRS Dur : 064 ms QT Int : 404 ms P-R-T Axes : 049 021 044 degrees QTc Int : 463 ms Sinus rhythm with sinus arrhythmia with occasional Premature ventricular complexes Otherwise normal ECG Confirmed by NELY ARSHAD, COLBY ([id number]), marketing editor LOUISA FLOREZ ([id number]) on 02/19/2021 2:58:10 PM Referred By: NICKY Confirmed By:COLBY MCKAY MD
[2021-02-16] MEDS: Latanoprost 0.005% 1 Bottle 1 DRP EACH EYE ×2 (09:10→21:10)
[2021-02-16] MEDS: 0.9% Saline Lock 10 ML Syringe IV (09:14)
--- NOTE | 2021-02-16 10:49 | CASEMGMT ---
Assessment- SW completed assessment with patient at bedside. Living situation- Patient lives with her in a 3 story home with 1 entry step in the garage. They mainly stay on the middle level. Patient normally does fine with steps. PCP: Dr Montenegro Specialists: None Pharmacy: [facility] DME: shower chair, walker, cane, and grab bars ADL's/IADL's: Patient is normally independent in all activities. She also drives. Past SNF/rehab: None Past HH: None LW: Yes. She is aware they are not on file at [facility] POA: Yes. She is aware they are not on file at [facility]. Her Rishi is her Healthcare Power of Rn House Supervisor Plan: Patient plans on returning home at discharge. She does not anticipate any needs. Bonnie Welch AMMONIA DISTILLER MANUEL
[2021-02-16] MEDS: Lactated Ringers 1,000 ML 100 ML IV ×2 (11:36→17:22)
--- NOTE | 2021-02-16 12:35 | OP.CCLET_ITS ---
02/16/2021 David Montenegro MD [address] [id number] Re : Upper GI endoscopy procedure for Bev Jeffers Dear Dr. Montenegro This procedure was performed on Tuesday, February 16, 2021. My impressions and recommendations are as follows: Impressions : - Z-line variable, 35 cm from the incisors. - Erythematous mucosa in the antrum. Biopsied. - Normal examined duodenum. Recommendations : - Await pathology results. - Return patient to [facility] for ongoing care. - Resume regular diet. - Continue present medications. My findings are described in the full procedure note, which is enclosed. If I can be of further assistance, please feel free to contact me at Doctor phone number(s): , Work: . Sincerely, MD Lula Garner MD 02/16/2021 12:34:34 PM This report has been signed electronically.
--- NOTE | 2021-02-16 12:35 | OP.EGD_ITS ---
Patient Name: Bev Jeffers Procedure Date: 02/16/2021 11:51 AM Date of : 1955 Age: 66 Procedure: Upper GI endoscopy Indications: Iron deficiency anemia Providers: Lula Márquez MD Medicines: Monitored Anesthesia Care Patient Profile: This is a 66 year old female. Complications: Pt did desat, which improved with supplemental O2; had some bradycardia which improved on its own. Procedure: Pre-Anesthesia Assessment: - Prior to the procedure, a History and Physical was performed, and patient medications and allergies were reviewed. The patient's tolerance of previous anesthesia was also reviewed. The risks and benefits of the procedure and the sedation options and risks were discussed with the patient. All questions were answered, and informed consent was obtained. Prior Anticoagulants: The patient has taken no previous anticoagulant or antiplatelet agents. ASA Grade Assessment: Per anesthesia. After reviewing the risks and benefits, the patient was deemed in satisfactory condition to undergo the procedure. After obtaining informed consent, the endoscope was passed under direct vision. Throughout the procedure, the patient's blood pressure, pulse, and oxygen saturations were monitored continuously. The gastroscope was introduced through the mouth, and advanced to the second part of duodenum. The upper GI endoscopy was accomplished without difficulty. Pt did have some desatting towards the end of the scope, so the scope was removed urgently and Ambu bag applied- Pt also became bradycardic into 30s but came up on her own and sats improved as well with supplemental oxygen. The upper GI endoscopy was accomplished without difficulty. Scope In: 12:05:41 PM Scope Out: 12:16:37 PM Total Procedure Duration Time 0 hours 10 minutes 56 seconds Findings: The Z-line was variable and was found 35 cm from the incisors. Mildly erythematous mucosa without bleeding was found in the gastric antrum. Biopsies were taken with a cold forceps for histology. Biopsies were taken with a cold forceps for Helicobacter pylori cultures. The examined duodenum was normal. Impression: - Z-line variable, 35 cm from the incisors. - Erythematous mucosa in the antrum. Biopsied. - Normal examined duodenum. Recommendation: - Await pathology results. - Return patient to hospital [facility] for ongoing care. - Resume regular diet. - Continue present medications. Procedure Code(s): --- Professional --- 27779, Esophagogastroduodenoscopy, flexible, transoral; with biopsy, single or multiple Diagnosis Code(s): --- Professional --- K22.8, Other specified diseases of esophagus K31.89, Other diseases of stomach and duodenum D50.9, Iron deficiency anemia, unspecified CPT copyright 2017 [employer] [employer]. All rights reserved. The codes documented in this report are preliminary and upon market risk specialist review may be revised to meet current compliance requirements. MD Lula Garner MD 02/16/2021 12:34:34 PM This report has been signed electronically. Number of Addenda: 0 Note Initiated On: 02/16/2021 11:51 AM
--- NOTE | 2021-02-16 13:00 | IMM_PTH ---
PATIENT: VEENA STEPHENSON LOC: [facility] U#:[id number] AGE/SX: 66/F ROOM: [facility] RE02/15/[address]: Dr. Mario Mchugh DO : 1955 BED: 1 DIS: 02/17/2021 SPEC #: [id number] RECD: 02/16/21 14:32 STATUS: SONYA REQ #: [id number] MICHELLE: 02/16/21 13:[address]: Lula Márquez DEPT: IMMUNOHISTOCHEMISTRY RECD BY: Sandra Correia ENTERED: 02/16/21 14:33 SP TYPE: IMMUNO OTHR DR: MD Dr. Mario Sandoval DO Dr. Paul Nielsen, MD Tissues: Stomach, NOS Procedures: H Pylori (initial) PHYSICIAN & INSTITUTION [address] [place] [address] SPECIMEN INFORMATION: Tissue Source: Antrum biopsy Clinical Info: GI bleed, anemia Specimen Number: [id number] CPT code: 04334 METHODOLOGY: Deparaffinized sections of prefer/formalin-fixed tissue or PAP/DQ stained slides are incubated with monoclonal/polyclonal antibodies/oligonucleotide probes. Localization is made via biotin free immunoperoxidase method. Appropriate controls are performed and reacted as expected. Results on target cell population are indicated in the following table: RESULTS: ANTIBODY / CLONE RESULT H Pylori (polyclonal) negative These tests were developed and their performance characteristics determined by [facility]. They may not have been cleared or approved by the U.S. Food and Drug Administration. The FDA has determined that such clearance or approval is not necessary. INTERPRETATION: Antrum biopsy: Negative for Helicobacter pylori organisms. AM:monisha 02/19/2021
--- NOTE | 2021-02-16 13:01 | EKG12_ITS ---
Test Reason : PRE OP Blood Pressure : / mmHG Vent. Rate : 076 BPM Atrial Rate : 076 BPM P-R Int : 136 ms QRS Dur : 066 ms QT Int : 386 ms P-R-T Axes : 034 015 050 degrees QTc Int : 434 ms Normal sinus rhythm Normal ECG Confirmed by SANTIAGO ARSHAD, TEEAN ([id number]), staff editor LOUISA FLOREZ ([id number]) on 02/20/2021 9:43:13 AM Referred By: NICKY Confirmed By:TEENA HENDERSON MD
--- NOTE | 2021-02-16 13:21 | NT.THERAPY_ITS ---
Nutrition Therapy Report - History Nutrition Services has been consulted to:: Manage nutrient details of diet order - NPO Current diet / nutrition support order:: NPO for EGD - Anthropometric Measurements Height:: 5 ft 3 in Weight:: 51.43 kg Body Mass Index (BMI):: 20.0 - Relevant Labs Relevant Labs:: RBC 2.70 M/mm3 (4.2-5.4) L 02/16/21 05:20 Hgb 8.6 g/dL (12.0-15.0) L 02/16/21 08:33 Hct 26.8 % (37-47) L 02/16/21 08:33 RDW Std Deviation 74.8 fl (35.1-43.9) H 02/16/21 05:20 RDW Coeff of Ismael 21.0 % (11.6-14.6) H 02/16/21 05:20 Immature Gran % (Auto) 1.200 % (0.0-0.9) H 02/16/21 05:20 Neut % (Auto) 74.7 % (47-70) H 02/15/21 13:31 Lymph % (Auto) 10.8 % (19-41) L 02/15/21 13:31 [place] % (Auto) 13.7 % (0-10) H 02/16/21 05:20 Absolute Lymphs (auto) 0.80 X10^3/uL (0.83-4.51) L 02/15/21 13:31 Sodium 131 mmol/L (136-145) L 02/15/21 13:30 Potassium 3.0 mmol/L (3.5-5.1) L 02/16/21 05:20 BUN 3 mg/dL (7-18) L 02/16/21 05:20 Creatinine 0.25 mg/dL (0.55-1.02) L 02/16/21 05:20 Calcium 7.5 mg/dL (8.5-10.1) L 02/16/21 05:20 Ferritin 1460 ng/mL (8-252) H 02/15/21 13:30 Total Bilirubin 1.40 mg/dL (0.20-1.00) H 02/15/21 13:30 AST 64 U/L (15-37) H 02/16/21 05:20 ALT 8 U/L (13-56) L 02/16/21 05:20 Alkaline Phosphatase 123 U/L (45-117) H 02/16/21 05:20 Total Protein 5.1 g/dL (6.4-8.2) L 02/16/21 05:20 Albumin 2.3 g/dL (3.2-5.0) L 02/16/21 05:20 Albumin/Globulin Ratio 0.8 RATIO (0.9-2.4) L 02/16/21 05:20 - Assessment Food / Nutrition-Related History:: NPO for EGD. UBW: 58.967 kg - indicating 12.8% wt loss in past 2-3 wks d/t decreased appetite. - Nutrition Diagnosis Problem / Etiology / Signs & Symptoms (PES):: Inadequate po intake r/t physiological causes increasing nutrient needs d/t acute illness (anemia/ GI bleed) aeb <50% po intake x <5 days and wt loss of 12.8% x 2-3 wks [employer] Evidence of Malnutrition Exists:: Yes Severe PCM:: Acute Illness - Nutrition Intervention Nutrition Prescription:: [id number] bucky/day (RMR x 1.3). 51-62 gm pro/day (1-1.2 gm/kg). 1757 ml fluid/day (per ASPEN guidelines) - Food / Nutrient Delivery Interventions Summary of nutrition intervention:: As medically able, rec HALEY to liberal Re gular diet (consider change to Cardiac once po intake consistently improved). Rec ONS at medpass (ensure enlive 120 ml 4x/day) for increased nutrition if consumed. Nutrition education provided?: No - MNT Monitoring MNT Follow-up in:: 3-5 days - please call RD/LD if questions / concerns [phone]
[2021-02-16] MEDS: Ensure Clear 120 ML Liquid PO (14:04)
[2021-02-16 15:51] LABS: Iron 80 ug/dL (50-170)
--- NOTE | 2021-02-16 18:04 | PN.HOSP_ITS ---
Subjective Subjective Patient was seen and examined today, she underwent an EGD which did not show any abnormality, after the EGD was completed, patient had an episode of bradycardia into the 20s but spontaneously came out of it. At the time of my examination, patient complains of feeling dizzy, I ordered a serum iron which was normal, patient's hemoglobin is 8.6 today. Patient's potassium was low at 3, she was given supplemental potassium today. Labs will be repeated in the morning. Objective Data Objective Data Vital Signs: Vital Signs Temp Pulse Resp BP Pulse Ox 98.4 F 88 18 117/68 99 02/16/21 17:42 02/16/21 17:42 02/16/21 17:42 02/16/21 17:42 02/16/21 17:42 Oxygen Delivery Method Room Air Weight: 51.43 kg Body Mass Index (BMI) 20.0 Orthostatic Vital Signs Start: 02/16/21 01:58 Freq: 0600 Status: Active Protocol: Activity Type Activity Date Activity User E-Sign Co-Sign Detail Recorded Client Recorded Date Recorded By Document 02/16/21 03:20 [id number] 02/16/21 03:29 TM 02/16/21 03:20 Orthostatic Vitals Standing -Blood Pressure (90/60-120/80) 97/69 -Extremity Use Right Arm -Pulse Rate (60-100) 80 Sitting -Blood Pressure (90/60-120/80) 112/67 -Extremity Use Right Arm -Pulse Rate (60-100) 72 Lying -Blood Pressure (90/60-120/80) 102/66 -Extremity Use Right Arm -Pulse Rate (60-100) 64 Intake & Output: Intake and Output for Last 24 Hours 02/14/21 02/15/21 02/16/21 23:59 23:59 23:59 Intake Total 2310 / 2430 2181.92 / 2181.92 Balance 2310 / 2430 2181.92 / 2181.92 Lab / Micro Data Result Diagrams: 02/16/21 08:33 02/16/21 05:20 Labs: Laboratory Results - last 24 hr 02/15/21 02/15/21 02/15/21 13:30 18:45 18:45 WBC RBC Hgb 9.2 L Hct 28.6 L MCV MCH MCHC RDW Std Deviation RDW Coeff of Ismael Plt Count MPV Immature Gran % (Auto) Neut % (Auto) Lymph % (Auto) Christian % (Auto) Eos % (Auto) Baso % (Auto) Absolute Neuts (auto) Absolute Lymphs (auto) Nucleated RBC % Differential Comment Hypochromasia Anisocytosis Sodium Potassium Chloride Carbon Dioxide Anion Gap BUN Creatinine Estim Creat Clear Calc Est GFR (MDRD) Af Amer Est GFR (MDRD) Non-Af BUN/Creatinine Ratio Glucose Calcium Magnesium 1.6 Iron TIBC 257 Ferritin 1460 H Total Bilirubin AST ALT Alkaline Phosphatase Troponin I Total Protein Albumin Globulin Albumin/Globulin Ratio TSH 3.65 Blood Type O POSITIVE Antibody Screen NEGATIVE Crossmatch See Detail 02/16/21 02/16/21 02/16/21 00:40 05:20 05:20 WBC 5.0 RBC 2.70 L Hgb 8.0 L 8.3 L Hct 24.6 L 25.8 L MCV 95.6 MCH 30.7 MCHC 32.2 RDW Std Deviation 74.8 H RDW Coeff of Ismael 21.0 H Plt Count 225 MPV 10.3 Immature Gran % (Auto) 1.200 H Neut % (Auto) 58.4 Lymph % (Auto) 24.3 Christian % (Auto) 13.7 H Eos % (Auto) 1.8 Baso % (Auto) 0.6 Absolute Neuts (auto) 2.9 Absolute Lymphs (auto) 1.21 Nucleated RBC % 0 Differential Comment SCANNED Hypochromasia 2+ Anisocytosis 1+ Sodium 137 Potassium 3.0 L Chloride 104 Carbon Dioxide 23.0 Anion Gap 10 BUN 3 L Creatinine 0.25 L Estim Creat Clear Calc 44.46 Est GFR (MDRD) Af Amer 360 Est GFR (MDRD) Non-Af 297 BUN/Creatinine Ratio 12.2 Glucose 87 Calcium 7.5 L Magnesium Iron TIBC Ferritin Total Bilirubin 0.90 AST 64 H ALT 8 L Alkaline Phosphatase 123 H Troponin I Total Protein 5.1 L Albumin 2.3 L Globulin 2.8 Albumin/Globulin Ratio 0.8 L TSH Blood Type Antibody Screen Crossmatch 02/16/21 02/16/21 02/16/21 08:33 12:50 12:50 WBC RBC Hgb 8.6 L Hct 26.8 L MCV MCH MCHC RDW Std Deviation RDW Coeff of Ismael Plt Count MPV Immature Gran % (Auto) Neut % (Auto) Lymph % (Auto) Christian % (Auto) Eos % (Auto) Baso % (Auto) Absolute Neuts (auto) Absolute Lymphs (auto) Nucleated RBC % Differential Comment Hypochromasia Anisocytosis Sodium Potassium Chloride Carbon Dioxide Anion Gap BUN Creatinine Estim Creat Clear Calc Est GFR (MDRD) Af Amer Est GFR (MDRD) Non-Af BUN/Creatinine Ratio Glucose Calcium Magnesium Iron 80 TIBC Ferritin Total Bilirubin AST ALT Alkaline Phosphatase Troponin I < 0.015 Total Protein Albumin Globulin Albumin/Globulin Ratio TSH Blood Type Antibody Screen Crossmatch Micro: Microbiology 02/16/21 09:00 Interface Orders SARS-CoV-2 Antigen (Rapid) - Final 02/15/21 16:21 Stool Stool Occult Blood (DARNELL) - Final Occult Blood Positive Physical Exam Const alert, oriented x3 and no apparent distress HEENT head/scalp atraumatic and moist oral mucous membranes Head and Scalp: normocephalic Eyes PERRL, EOMs intact bilaterally and conjunctivae normal Neck no lymphadenopathy, supple and no JVD Resp normal respiratory effort, no retractions, no use of accessory muscles and clear to auscultation bilaterally Cardio regular rate, regular rhythm, S1 normal heart sound, S2 normal heart sound, no gallops and no clicks GI normal to inspection, nondistended, normoactive bowel sounds, soft to palpation and non-tender Extremity normal to inspection and no clubbing, cyanosis or edema Skin no rashes or lesions noted, no wounds and skin turgor normal Neuro oriented x3, CN's II-XII intact bilaterally, no focal motor deficits and no sensory deficits noted Sensorium / Orientation: awake and alert Psych affect normal Assessment & Plan Assessment/Plan (1) Anemia: PLAN: 1. Acute anemia-etiology unclear at this point, hemoglobin will be rechecked tomorrow, there is no evidence of GI bleeding at this time, I will stop her IV protonic #2 severe protein and caloric malnutrition-etiology unclear at this time, patient will require further work-up as an outpatient including colonoscopy #3 hypokalemia-patient's potassium will be rechecked tomorrow #4 essential hypertension-patient's blood pressure medicines were held at this time due to hypotension #5 hyperlipidemia #6 orthostatic hypotension-patient's blood pressure appears to be improved at this time, continue to hold blood pressure medication Visit Charges Inpatient E&M: 11959 Subs Hosp L2
[2021-02-16] MEDS: Atorvastatin Calcium 20 MG Tablet PO (21:10)
[2021-02-17] MEDS: Lactated Ringers 1,000 ML 100 ML IV ×2 (00:42→10:21)
[2021-02-17 02:46] VITALS: PULSE 67
[2021-02-17 03:05] VITALS: BP 121/67; BP 123/78; BP 131/79; PULSE 72; PULSE 77; PULSE 92; RESP 16; TEMP 36.6; O2SAT 100
[2021-02-17 06:38] VITALS: PULSE 75
[2021-02-17 07:14] LABS: Hemoglobin 8.3 g/dL (12.0-15.0)
[2021-02-17 07:38] VITALS: O2SAT 98
[2021-02-17 07:44] LABS: Anion Gap 6 (5-15); BUN 3 mg/dL (7-18); BUN/Creat Ratio 11.5 RATIO (10-20); Calcium,Total 8.2 mg/dL (8.5-10.1); Chloride 108 mmol/L (98-107); Creatinine, Serum 0.26 mg/dL (0.55-1.02); EST Glomerular Filtration Rate 278 mL/min (>60); Est Glom Filt Rate - Afr Amer 336 mL/min (>60); Estimated Creatinine Clearance 44.93 ml/min; Glucose 103 mg/dL (74-106); Potassium 3.2 mmol/L (3.5-5.1); Sodium Level 139 mmol/L (136-145)
[2021-02-17 08:03] LABS: Vitamin B12 306 pg/mL (211-911)
[2021-02-17 09:05] VITALS: BP 111/67; PULSE 81; RESP 18; TEMP 36.8; O2SAT 100
[2021-02-17] MEDS: Latanoprost 0.005% 1 Bottle 1 DRP EACH EYE (09:15)
--- NOTE | 2021-02-17 10:24 | CT_ITS ---
EXAM: CT CHEST, ABDOMEN AND PELVIS WITH INTRAVENOUS CONTRAST : 1955 CLINICAL INDICATION: anemia, severe weight loss TECHNIQUE: Helically acquired images were obtained of the chest, abdomen and pelvis with intravenous contrast. This CT exam was performed using one or more of the following dose reduction techniques: automated exposure control, adjustment of the mA and/or kV according to patient size, and/or use of iterative reconstruction technique. This report was created using [employer] report generation technology. CONTRAST: Oral Tamp; IV Gastrografin Tamp; 100mL Isovue-370 COMPARISON: None. FINDINGS: CHEST: LUNGS AND PLEURAL SPACES: There is minimal bibasilar scar or atelectasis. No mass. No pleural effusion or thickening. No pneumothorax. HEART: Unremarkable. Heart size is normal. No pericardial effusion. MEDIASTINUM: Unremarkable. No mediastinal or hilar adenopathy. Esophagus is unremarkable. No hiatal hernia. THYROID: Unremarkable. No thyroid lesions. ABDOMEN: LIVER: Unremarkable. Homogeneous. No focal mass. GALLBLADDER AND BILE DUCTS: There is a small gallstone with no inflammation. No gallbladder distention or wall edema. No intra- or extrahepatic biliary ductal dilation. PANCREAS: Unremarkable. No focal cystic or solid mass. SPLEEN: Unremarkable. Normal size without focal cystic or solid mass. ADRENALS: Unremarkable. No nodules. KIDNEYS AND URETERS: Unremarkable. Normal renal size and position. No hydronephrosis. STOMACH AND BOWEL: There is thickening of the wall of the cecum and ascending colon. No stomach or bowel distention. PELVIS: APPENDIX: No evidence of acute appendicitis. BLADDER: Unremarkable. REPRODUCTIVE: Unremarkable as visualized. No mass. CHEST, ABDOMEN and PELVIS: INTRAPERITONEAL SPACE: Unremarkable. No ascites or other fluid collection. No free air. BONES/JOINTS: Unremarkable. No suspicious lytic or blastic abnormality. SOFT TISSUES: Unremarkable. No discrete abdominal or pelvic wall hernia. VASCULATURE: Unremarkable. Aorta is non-dilated. No aortic dissection. No obvious central pulmonary embolism although this study was not performed with the pulmonary embolism protocol. LYMPH NODES: Unremarkable. No enlarged lymph nodes. CT/CT Chest, Abd, Pel w/Contrast IMPRESSION: 1. Thickening of the wall the cecum and ascending colon. This appears to be primarily fat density. If indicated further evaluation with colonoscopy may be beneficial. 2. Minimal bibasilar atelectasis. 3. No other acute abnormalities in the chest, abdomen or pelvis. Individualized dose optimization techniques were used for this CT. at 1501 Reported and signed by: Chad Hanley MD Electronically Signed: Chad Hanley MD at 14:59 EDT Tel , Service support ,
--- NOTE | 2021-02-17 11:23 | NURSING ---
This RN gave the pt contrast to drink for testing.
[2021-02-17 15:16] VITALS: BP 124/72; PULSE 72; RESP 18; TEMP 36.8; O2SAT 97
--- NOTE | 2021-02-17 15:30 | PCM.DC ---
Discharge Instructions Follow Up Care Test Results: Test results from this visit will be discussed in further detail at your follow-up appointment, if applicable. Discharge Plan Admission Admit Date/Time: 02/15/21 17:27 Primary Reason for Your Visit: hypotension, weight loss Attending Provider: Mario Mchugh Primary Care Provider: David Montenegro Consulting Providers: Lula Márquez Discharge Orders/Prescriptions Prescriptions: Continued latanoprost 0.005 % Drops 1 drp EACH EYE BID RF: 0 Discontinued atorvastatin 20 mg Tablet 20 mg PO DAILY RF: 0 metoprolol succinate 50 mg Tablet Extended Release 24 Hr 50 mg PO DAILY RF: 0 amlodipine 5 mg Tablet 5 mg PO DAILY RF: 0 triamterene-hydrochlorothiazid 37.5-25 mg Tablet 1 tab PO DAILY RF: 0 Referrals / Follow Up: David Montenegro MD [Primary Care Provider] - In 1 Week (get a repeat cmp and cbc in one week) Moo Chavis MD [NON-STAFF] - Within 1 Month (you will need a colonsocopy within the month) Disposition Disposition (needs filled in before D/C Order can be placed): Home, self care
[2021-02-17] MEDS: Potassium Chloride Oral Tablet 20 MEQ 40 MEQ PO (15:46)
[2021-02-17 16:05] LABS: Platelet Count 273 K/mm3 (150-450); RET-HE 29.2 pg (30-35); Reticulocyte Count 2.57 % (0.5-1.5)
[2021-02-17 16:26] LABS: Ferritin 1367 ng/mL (8-252)
[2021-02-17 16:42] LABS: Vitamin B12 369 pg/mL (211-911)
--- NOTE | 2021-02-18 18:14 | DS.PCM_ITS ---
Providers Date of Admission: 02/15/21 Date of Discharge: 02/17/21 Primary Care Physician: Dr. David Montenegro MD Consultations 02/15/21 18:54 Consult: General Surgery Routine Consulting Provider: Lula Márquez Reason for Consult: Anemia, bowel inflammatory changes on CT scan EMERGENT Consult: No MD Notified: Yes Date Notified:: 02/15/21 Time Notified: 17:25 Method of Notification: Verbal Method of Consult:: In-Person Comments:: Notified by ER physician Reason For Visit: HYPOTENSION, ANEMIA Diagnosis Discharge Diagnosis (1) Anemia: Status: Acute Code(s): D64.9 - Anemia, unspecified Plan: 1. Acute anemia-etiology unclear #2 severe protein and caloric malnutrition #3 hypokalemia #4 essential hypertension #5 hyperlipidemia #6 orthostatic hypotension Medications at Discharge Home Medications latanoprost 1 drp EACH EYE BID 02/15/21 Hospital Course Operations None Procedures EGD Summary of Care Provided Minutes Spent on Discharge: 32 Hospital Course: This 66-year-old white female was seen in the emergency room at [facility] with complaints of lightheadedness and excessive w eight loss within the last 3 months. Patient states she lost approximately 20 to 30 pounds and that space of time. Patient's chest x-ray showed no acute process, CT of the brain was obtained and was unremarkable, CT of the abdomen and pelvis demonstrated some mild inflammatory changes of the terminal ileum cecum. On examination, her abdomen was benign. Patient was orthostatic positive and her hemoglobin was 9.8. General surgery was contacted, patient was given IV fluids, and she was admitted to PCU. Patient's blood pressure medications were held, she underwent an EGD which showed no abnormalities. Patient's labs were obtained and she was not iron deficient, her pressure normalized off of her blood pressure medications, for completeness sake and due to her severe weight loss over the last 3 to 4 months, a CT of the abdomen and pelvis was ordered with contrast as well as a CT of the chest with contrast. There was no obvious abnormality on either test, there was felt to be fat den sity thickening of the wall of the cecum and ascending colon. Patient was seen by nutritional services who felt that she had severe protein and caloric malnutrition. On 02/17/2021, patient was seen and examined: On examination she appeared in good health and spirits, she does not appear to be in any distress. Vital signs as documented. Skin warm and dry and without overt rashes. Neck without JVD, thyroid appears normal, trachea is midline, neck is supple. Lungs clear, normal air movement was noted. Heart exam notable for regular rhythm, normal sounds and absence of murmurs, rubs or gallops. Abdomen unremarkable and without evidence of organomegaly, masses, or abdominal aortic enlargement, bowel sounds are present in all 4 quadrants, no abdominal tenderness was noted. Extremities nonedematous, no cyanosis was noted, no clubbing was noted. Neuro: Cranial nerves II through XII are grossly intact, no focal motor deficits were noted, sensation to light touch and pinprick is intact, motor exam 5/5 throughout. Psych: Patient is alert and oriented x3, she does not appear anxious or depres sed, she does not appear agitated. Patient was discharged in stable condition on 02/17/2021, she was instructed to follow-up with her primary care doctor as well as her GI doctor and obtain a colonoscopy in the next 2 weeks. ABG / Lab / Microbiology Data Result Diagrams: 02/17/21 06:36 02/17/21 06:36 Laboratory: Laboratory Results - last 24 hr 02/15/21 18:45 Crossmatch See Detail Microbiology: Microbiology 02/16/21 09:00 Interface Orders SARS-CoV-2 Antigen (Rapid) - Final 02/15/21 16:21 Stool Stool Occult Blood (DARNELL) - Final Occult Blood Positive Meaningful Use Info Meaningful Use Diagnoses (Choose all that apply): None applicable Discharge Plan Admission Admit Date/Time: 02/15/21 17:27 Primary Reason for Your Visit: hypotension, weight loss Attending Provider: Mario Mchugh Primary Care Provider: David Montenegro Consulting Providers: Lula Márquez Instructions Additional Instructions / Restrictions: Patient Problems: Altered Health Status related to Hospitalization Patient Goals: *Optimal Level of Health *Keep Appointments *Medication Compliance *Remain Safe Discharge Orders/Prescriptions Prescriptions: Continued latanoprost 0.005 % Drops 1 drp EACH EYE BID RF: 0 Discontinued atorvastatin 20 mg Tablet 20 mg PO DAILY RF: 0 metoprolol succinate 50 mg Tablet Extended Release 24 Hr 50 mg PO DAILY RF: 0 amlodipine 5 mg Tablet 5 mg PO DAILY RF: 0 triamterene-hydrochlorothiazid 37.5-25 mg Tablet 1 tab PO DAILY RF: 0 Referrals / Follow Up: David Montenegro MD [Primary Care Provider] - In 1 Week (get a repeat cmp and cbc in one week) Moo Chavis MD [NON-STAFF] - Within 1 Month (you will need a colonsocopy within the month) Disposition Disposition (needs filled in before D/C Order can be placed): Home, self care Visit Charges Inpatient E&M: 30357 Disch Hosp
[2021-02-18 20:12] LABS: Folate, RBC (Hct) Test 28.7 % (34.0-46.6)
[2021-02-19 10:02] LABS: Folates, RBC Test 714 ng/mL (>498)
== END 2021-02-17 16:50 | disposition home or self-care (01) | DRG 377 ==
LOC: ED 17:03 → PCU 02-16 04:36
PROVIDERS: Anesthesiology; Hospitalist; Surgery; Admitting Provider Hospitalist; Emergency Provider Emergency Medicine; PCP Family Medicine; Visit Provider Internal Medicine
PROC: 0DJ08ZZ Inspection of Upper Intestinal Tract, Via Natural or Artificial Opening Endoscopic (ICD-10-PCS; CPT 43235; principal; 2021-02-16 12:55)
DX: K92.1 Melena (principal); E43 Unspecified severe protein-calorie malnutrition; D50.0 Iron deficiency anemia secondary to blood loss (chronic); I95.1 Orthostatic hypotension; Z68.20 Body mass index [BMI] 20.0-20.9, adult; E78.5 Hyperlipidemia, unspecified; I10 Essential (primary) hypertension; E87.6 Hypokalemia; F17.210 Nicotine dependence, cigarettes, uncomplicated; M19.90 Unspecified osteoarthritis, unspecified site; K31.89 Other diseases of stomach and duodenum; K22.8 Other specified diseases of esophagus; R00.1 Bradycardia, unspecified; Z79.899 Other long term (current) drug therapy
CPT/HCPCS: 36415; 70450; 71045; 71260; 74177; 80048; 80053; 81001; 82274; 82607; 82728; 82747; 83540; 83550; 83690; 83735; 84443; 84484; 85014; 85018; 85025; 85045; 85610; 85730; 86850; 86900; 86901; 86920; 86922; 87426; 88305; 88342; 93005; 97162; 97165; 99251; 99285; J7030; J7120; Q9967; A4216; G0463; J2405

== ENCOUNTER → 2021-02-23 11:38 | Outpatient (CLI) | payer MEDICARE, BC, SELFPAY ==
[2021-02-23 15:23] LABS: Absolute Lymphocyte Count 1.55 X10^3/uL (0.83-4.51); Absolute Neutrophil Count 8.7 X10^3/uL (2.0-7.7); Basophil# 0.08 X10^3/uL; Basophil% 0.7 % (0-1); Eosinophil# 0.12 X10^3/uL; Hematocrit 33.2 % (37-47); Lymphocyte # 1.55 X10^3/ul (0.83-4.51); Lymphocyte % 13.6 % (19-41); Mean Corp Hgb Conc 30.1 g/dL (32-36); Mean Corpuscular Hgb 29.2 pg (27.0-32.0); Mean Corpuscular Volume 96.8 fL (81-99); Mean Platelet Vol. 10.9 fl (6.2-12.0); Monocyte# 0.92 X10^3/uL; NRBC Flagged by Analyzer 0 % (0-5); Neutrophil # 8.71 X10^3/uL (2.7-7.7); Neutrophil % 76.3 % (47-70); POSITIVE MORPHOLOGY YES; Platelet Count 518 K/mm3 (150-450); RBC Distribution Width CV 22.5 % (11.6-14.6); Red Blood Count 3.43 M/mm3 (4.2-5.4); White Blood Count 11.4 K/mm3 (4.4-11.0)
[2021-02-23 15:33] LABS: Differential Indicated SCAN CRITERIA MET
== END ==
PROVIDERS: PCP Family Medicine; Referring Provider Family Medicine; Visit Provider Family Medicine
DX: D64.9 Anemia, unspecified (principal)
CPT/HCPCS: 36415; 85025

== ENCOUNTER → 2021-04-16 16:07 | Outpatient (CLI) | payer MEDICARE, BC, SELFPAY ==
[2021-04-16 17:35] LABS: Hemoglobin 15.5 g/dL (12.0-15.0); Mean Corpuscular Hgb 30.3 pg (27.0-32.0); Mean Corpuscular Volume 91.8 fL (81-99); Mean Platelet Vol. 10.6 fl (6.2-12.0); Platelet Count 248 K/mm3 (150-450); RBC Distribution Width CV 17.2 % (11.6-14.6); RBC Distribution Width SD 57.6 fl (35.1-43.9); Red Blood Count 5.12 M/mm3 (4.2-5.4); White Blood Count 9.6 K/mm3 (4.4-11.0)
[2021-04-16 18:32] LABS: Ferritin 371 ng/mL (8-252); Iron 104 ug/dL (50-170)
== END ==
PROVIDERS: PCP Family Medicine; Referring Provider Family Medicine; Visit Provider Internal Medicine Gastroenterology
DX: D50.9 Iron deficiency anemia, unspecified (principal)
CPT/HCPCS: 36415; 82728; 83540; 85027

== ENCOUNTER → 2021-04-19 13:53 | Outpatient (CLI) | payer MEDICARE, BC, SELFPAY ==
[2021-04-19 16:17] LABS: Anion Gap 8 (5-15); BUN 6 mg/dL (7-18); Calcium,Total 8.8 mg/dL (8.5-10.1); Chloride 104 mmol/L (98-107); Cholesterol 186 mg/dL (200); Creatinine, Serum 0.46 mg/dL (0.55-1.02); EST Glomerular Filtration Rate 144 mL/min (>60); Est Glom Filt Rate - Afr Amer 174 mL/min (>60); Glucose 91 mg/dL (74-106); High Density Lipoprotein 66 mg/dL; Potassium 3.5 mmol/L (3.5-5.1); Sodium Level 142 mmol/L (136-145); Triglycerides 83 mg/dL; Very Low Density Lipoprotein 17 mg/dL (5-40)
== END ==
PROVIDERS: PCP Family Medicine; Referring Provider Family Medicine; Visit Provider Family Medicine
DX: I10 Essential (primary) hypertension (principal)
CPT/HCPCS: 36415; 80048; 80061

== ENCOUNTER 2021-10-15 14:02 | Outpatient (CLI) | payer MEDICARE, BC, SELFPAY ==
--- NOTE | 2021-10-15 14:06 | RAD_ITS ---
INDICATION: COUGH EXAMINATION/TECHNIQUE: X-RAY - XR Chest 2 Views COMPARISON: 02/17/2021. FINDINGS: The lungs are clear. Tortuous and calcified thoracic aorta. The heart is not enlarged. No pleural effusion or pneumothorax. Degenerative changes of the thoracic spine and shoulders. RAD/Chest PA and Lateral IMPRESSION: No acute radiographic abnormalities. Electronically Signed: Kalpesh Harpre MD at 18:46 EST Tel , Service support ,
[2021-10-15 17:49] LABS: Absolute Lymphocyte Count 1.31 X10^3/uL (0.83-4.51); Basophil# 0.07 X10^3/uL; Eosinophil# 0.07 X10^3/uL; Hematocrit 40.1 % (37-47); Hemoglobin 13.2 g/dL (12.0-15.0); Lymphocyte # 1.31 X10^3/ul (0.83-4.51); Lymphocyte % 18.6 % (19-41); Mean Corp Hgb Conc 32.9 g/dL (32-36); Mean Corpuscular Hgb 32.2 pg (27.0-32.0); Mean Corpuscular Volume 97.8 fL (81-99); Mean Platelet Vol. 10.3 fl (6.2-12.0); Monocyte% 8.5 % (0-10); NRBC Flagged by Analyzer 0.3 % (0-5); Neutrophil # 4.95 X10^3/uL (2.7-7.7); Neutrophil % 70.5 % (47-70); Platelet Count 311 K/mm3 (150-450); RBC Distribution Width CV 14.3 % (11.6-14.6); RBC Distribution Width SD 51.2 fl (35.1-43.9)
[2021-10-15 18:05] LABS: Anion Gap 12 (5-15); BUN 8 mg/dL (7-18); BUN/Creat Ratio 16.6 RATIO (10-20); Calcium,Total 8.9 mg/dL (8.5-10.1); Chloride 94 mmol/L (98-107); Cholesterol 124 mg/dL (200); Creatinine, Serum 0.48 mg/dL (0.55-1.02); EST Glomerular Filtration Rate 136 mL/min (>60); Est Glom Filt Rate - Afr Amer 165 mL/min (>60); Glucose 100 mg/dL (74-106); High Density Lipoprotein 62 mg/dL; Potassium 3.1 mmol/L (3.5-5.1); Sodium Level 133 mmol/L (136-145); Triglycerides 92 mg/dL; Very Low Density Lipoprotein 18 mg/dL (5-40)
[2021-10-15 18:33] LABS: D-Dimer Quantitative (DVT/PE) 0.33 FEU/ug/m (0.27-0.49)
== END 2021-10-15 23:59 | disposition short-term general hospital (02) ==
PROVIDERS: PCP Family Medicine; Referring Provider Family Medicine; Visit Provider Family Medicine
DX: R05.9 Cough, unspecified (principal); I10 Essential (primary) hypertension
CPT/HCPCS: 36415; 71046; 80048; 80061; 85025; 85379

== ENCOUNTER 2021-10-25 14:57 | Emergency (ER) | payer MEDICARE, BC, SELFPAY ==
[2021-10-25 14:58] VITALS: BP 147/100; PULSE 131; RESP 15; TEMP 36.3; O2SAT 99; BMI 19.1
--- NOTE | 2021-10-25 15:13 | EKG12_ITS ---
Test Reason : Blood Pressure : / mmHG Vent. Rate : 115 BPM Atrial Rate : 115 BPM P-R Int : 136 ms QRS Dur : 064 ms QT Int : 326 ms P-R-T Axes : 066 -19 051 degrees QTc Int : 450 ms Sinus tachycardia Low voltage QRS (Limb Leads) Confirmed by NELY ARSHAD, COLBY ([id number]), online content editor LOUISA FLOREZ ([id number]) on 10/26/2021 9:36:37 AM Referred By: LOIS Confirmed By:COLBY MCKAY MD
--- NOTE | 2021-10-25 15:14 | EDS_ITS ---
HPI HPI - URI History of Present Illness Chief Complaint: Cough Informant: patient Onset/Context/Timing Onset: Weeks Context: Gradual Onset Timing: Continuous Current Severity: Mild Maximum Severity: Mild Associated Symptoms Associated Symptoms: Positive for Productive Cough; Negative for Nausea, Vomiting, Diarrhea, Shortness of Breath, Chest Pain, Nonproductive cough and Hemoptysis Narrative Narrative: 66-year-old female smoker who states she has a history of low potassium.a cold warmth States she has had a cold for approximately last month. Denies any dysuria. States she is COVID have cleared. No hemoptysis. No chest pain. She denies any vomiting or diarrhea. She has not been tested for COVID. She called her primary care's office to told her to go to the emergency department. States she just feels generally weak and has some tingling in both legs. Prior similar symptoms: Yes Recent Illness/Hospitalization: No ROS ROS ED ROS Narrative Cough and weakness. Review of Systems ROS Unobtainable: Denies due to encephalopathy Constitutional Constitutional ED: Denies chills, fever(s) or subjective Eyes Eyes: Denies change in vision ENT ENT ED: Denies ear pain, rhinorrhea or sore throat Cardiovascular Cardiovascular: Denies chest pain or palpitations Respiratory/Chest Respiratory/Chest: Reports cough and sputum; Denies dyspnea Gastrointestinal Gastrointestinal: Denies abdominal pain, diarrhea, nausea or vomiting Genitourinary Genitourinary ED: Denies dysuria Musculoskeletal Musculoskeletal: Denies myalgias Integumentary Denies rash Neurologic Neurologic: Denies headache(s) Psychiatric Psychiatric: Denies depression Endocrine Endocrinology: Denies polyuria Hematologic/Lymphatic Hematologic/Lymphatic: Denies easy bruising Allergic/Immunologic Allergic/Immunologic ED: Denies urticaria PFSH PFSH Medical History Anemia Hypertension Osteoarthritis Smoker Home Medications latanoprost 1 drp EACH EYE BID 02/15/21 [History Last Taken 02/15/21] Allergy/AdvReac Type Severity Reaction Status Date / Time bee venom protein (honey bee) Allergy Hives Verified 10/25/21 14:58 Social History Smoking Status: Current every day smoker tobacco type: cigarettes details: She drinks alcohol occasionally. She did not drink for the last 4 weeks. EXAM Physical Exam Narrative Exam Narrative: 66-year-old female no acute distress vital signs stable afebrile. She does not look septic or toxic. Pulse ox 99% on room air no hypoxia. HEENT exam unremarkable. Neck nontender. No lymphadenopathy. Lungs clear to auscultation. Heart regular rhythm no murmur. Abdomen is soft and nontender normal bowel sounds no peritoneal signs. She is moving all 4 extremities. Calves are nontender without edema or cords. She has very thin arms and legs. Neurologically she is awake and alert. Moving all 4 extremities. Const Vital Signs: 10/25/21 14:58 10/25/21 15:25 Temperature 97.3 F L Temperature Source Temporal Pulse Rate 131 H Respiratory Rate 15 Respiratory Effort Normal Non-Labored Respiratory Depth Normal Respiratory Pattern Normal Blood Pressure 147/100 H Blood Pressure Mean 115 Pulse Ox 99 Oxygen Delivery Method Room Air Negative for well nourished, well developed, obese, cachectic or contractures General Appearance ED: NAD; Negative for well developed, cachectic, contractures, cyanotic, diaphoretic or pallor Nutritional Appearance: Negative for cachectic or obese HEENT Reports moist mucous membranes normocephalic and atraumatic External Ear: external ears normal Eyes PERRL and EOMs intact bilaterally Neck no lymphadenopathy, supple, no meningeal signs and no JVD General: Negative for anterior neck swelling or lymphadenopathy Resp normal respiratory effort and clear to auscultation bilaterally Auscultation: Negative for rales, rhonchi or wheezes Cardio S1 normal heart sound, S2 normal heart sound and no murmurs Rate: regular rate Rhythm: regular rhythm GI non-tender, non-distended and no masses Auscultation: normoactive bowel sounds Palpation: soft; Negative for tender or guarding Back/Spine no CVA tenderness and normal ROM General Back: Negative for CVA tenderness Cervical Spine: Negative for cervical spine tenderness Thoracic Spine / Upper Back: Negative for thoracic spinal tenderness Extremity normal to inspection and full ROM General Extremety ED: Negative for cyanosis or tenderness General Extremity: Negative for cyanosis Neuro oriented x3 Sensorium / Orientation: alert, oriented to person, oriented to place and oriented to time; Negative for orientation impaired, lethargic or stuporous Motor Exam: strength 5/5 throughout Psych mental status grossly normal Mood & Affect: Negative for depressed or tearful Skin General Skin Exam: Negative for jaundice or pallor Lesions: no lesions Rashes: no rashes MDM MDM MDM Narrative Medical decision making narrative: 66-year-old female has had a cough for a month and states she just feels generally weak. Screening labs and chest x-ray will be obtained. Repeat exam patient is doing well at 4:25 PM. She will be discharged to home. Outpatient follow-up. Lab Data Attestation: I reviewed the patient's lab results. Lab results narrative: CBC has a white 11.6. Hemoglobin 13.4. Hematocrit 38. Electrolytes unremarkable gap is 7 normal potassium at 3.8. Normal BUN and creatinine. Glucose 111. Chest x-ray unremarkable. Rapid COVID antigen negative. Labs: Laboratory Results - last 24 hr 10/25/21 10/25/21 15:20 15:20 WBC 11.6 H RBC 3.97 L Hgb 13.4 Hct 38.6 MCV 97.2 MCH 33.8 H MCHC 34.7 RDW Std Deviation 58.0 H RDW Coeff of Ismael 16.2 H Plt Count 233 MPV 9.8 Immature Gran % (Auto) 0.500 Neut % (Auto) 76.3 H Lymph % (Auto) 12.2 L [place] % (Auto) 9.4 Eos % (Auto) 1.1 Baso % (Auto) 0.5 Absolute Neuts (auto) 8.8 H Absolute Lymphs (auto) 1.41 Nucleated RBC % 0 Sodium 138 Potassium 3.8 Chloride 103 Carbon Dioxide 28.0 Anion Gap 7 BUN 7 Creatinine 0.57 Estim Creat Clear Calc 42.89 Est GFR (MDRD) Af Amer 136 Est GFR (MDRD) Non-Af 112 BUN/Creatinine Ratio 12.2 Glucose 111 H Calcium 9.0 Radiography Diagnostic Testing: Clinical Impression(s) from Imaging Studies Chest X-Ray 10/25/21 15:34 IMPRESSION: No acute abnormality is seen. Electronically Signed: Allen Leigh MD at 15:54 EST , Service support , Chest x-ray, portable, single view interpreted by myself and radiology shows no acute abnormality. Normal cardiac silhouette. Normal mediastinum. Normal lung smith. No infiltrate. Rhythm Strip Rhythm Strip: Sinus Tach Rate: 115 Ectopy: None EKG Initial EKG: Attestation: I personally reviewed and interpreted this EKG as follows: Interpretation: Sinus Rhythm and No Acute Injury Pattern Comments: Sinus tachycardia rate of 115 no acute signs of NV nor ischemia. Discharge Plan Triage Chief Complaint: Cough ED Provider: Michele Mims Dx/Rx/DC Orders Clinical Impression: URI (upper respiratory infection) Instructions: ED URI, Viral, No Abx (Adult) Prescriptions: No Action latanoprost 0.005 % Drops 1 drp EACH EYE BID RF: 0 Primary Care Provider: David Montenegro Referrals: David Montenegro MD [Primary Care Provider] - 1 Week if not improving Activity Restrictions/Additional Instructions: Plenty of fluids and rest. Tylenol for body aches. Follow-up if not improving. Disposition Disposition: Home, Self Care
--- NOTE | 2021-10-25 15:34 | RAD_ITS ---
STUDY: X-RAY CHEST REASON FOR EXAM: Female, 66 years old. Cough TECHNIQUE: Single AP portable view of the chest. COMPARISON: Comparison is made with prior study of 10/15/2021. FINDINGS: Stable elevation of the left hemidiaphragm. The lungs are clear. There is no demonstrated pleural abnormality. Normal size heart. Normal mediastinum and michele. Normal visualized pulmonary arteries. There is atherosclerotic calcification of the aortic arch with tortuosity. There are diffuse degenerative changes of the visualized thoracic spine. There is degenerative osteoarthritis of the bilateral shoulders. There is no demonstrated abnormality of the visualized soft tissue structures of the upper abdomen. RAD/Chest 1 View (Portable) IMPRESSION: No acute abnormality is seen. Electronically Signed: Allen Leigh MD at 15:54 EST , Service support ,
[2021-10-25 15:35] LABS: Absolute Lymphocyte Count 1.41 X10^3/uL (0.83-4.51); Absolute Neutrophil Count 8.8 X10^3/uL (2.0-7.7); Basophil# 0.06 X10^3/uL; Basophil% 0.5 % (0-1); Eosinophil# 0.13 X10^3/uL; Eosinophils% 1.1 % (0-5); Hematocrit 38.6 % (37-47); Hemoglobin 13.4 g/dL (12.0-15.0); Lymphocyte # 1.41 X10^3/ul (0.83-4.51); Lymphocyte % 12.2 % (19-41); Mean Corp Hgb Conc 34.7 g/dL (32-36); Mean Corpuscular Hgb 33.8 pg (27.0-32.0); Mean Corpuscular Volume 97.2 fL (81-99); Mean Platelet Vol. 9.8 fl (6.2-12.0); Monocyte# 1.09 X10^3/uL; Monocyte% 9.4 % (0-10); NRBC Flagged by Analyzer 0 % (0-5); Neutrophil # 8.83 X10^3/uL (2.7-7.7); Neutrophil % 76.3 % (47-70); Platelet Count 233 K/mm3 (150-450); RBC Distribution Width CV 16.2 % (11.6-14.6); Red Blood Count 3.97 M/mm3 (4.2-5.4); White Blood Count 11.6 K/mm3 (4.4-11.0)
[2021-10-25 15:50] LABS: Anion Gap 7 (5-15); BUN 7 mg/dL (7-18); BUN/Creat Ratio 12.2 RATIO (10-20); Chloride 103 mmol/L (98-107); Creatinine, Serum 0.57 mg/dL (0.55-1.02); EST Glomerular Filtration Rate 112 mL/min (>60); Est Glom Filt Rate - Afr Amer 136 mL/min (>60); Estimated Creatinine Clearance 42.89 ml/min; Glucose 111 mg/dL (74-106); Potassium 3.8 mmol/L (3.5-5.1); Sodium Level 138 mmol/L (136-145)
[2021-10-25 16:29] VITALS: BP 151/97; PULSE 105
== END 2021-10-25 16:37 | disposition home or self-care (01) ==
PROVIDERS: Emergency Provider Emergency Medicine; PCP Family Medicine; Visit Provider Emergency Medicine
DX: J06.9 Acute upper respiratory infection, unspecified (principal); F17.210 Nicotine dependence, cigarettes, uncomplicated; E66.9 Obesity, unspecified
CPT/HCPCS: 71045; 80048; 85025; 87426; 93005; 99284

== ENCOUNTER 2021-11-05 15:49 | Outpatient (CLI) | payer MEDICARE, BC, SELFPAY ==
[2021-11-05 18:15] LABS: Absolute Neutrophil Count 8.2 X10^3/uL (2.0-7.7); Basophil# 0.11 X10^3/uL; Eosinophils% 0.9 % (0-5); Hematocrit 40.8 % (37-47); Hemoglobin 13.4 g/dL (12.0-15.0); Mean Corp Hgb Conc 32.8 g/dL (32-36); Mean Corpuscular Hgb 33.1 pg (27.0-32.0); Mean Corpuscular Volume 100.7 fL (81-99); Monocyte# 0.92 X10^3/uL; Monocyte% 8.5 % (0-10); NRBC Flagged by Analyzer 0 % (0-5); Neutrophil % 76.1 % (47-70); Platelet Count 352 K/mm3 (150-450); RBC Distribution Width CV 15.9 % (11.6-14.6); RBC Distribution Width SD 59.1 fl (35.1-43.9); Red Blood Count 4.05 M/mm3 (4.2-5.4); White Blood Count 10.8 K/mm3 (4.4-11.0)
[2021-11-05 18:30] LABS: ALB/GLOB Ratio 0.8 RATIO (0.9-2.4); AST(SGOT) 54 U/L (15-37); Alanine Aminotransfer ALT/SGPT 15 U/L (13-56); Albumin, Serum 2.9 g/dL (3.2-5.0); Alkaline Phosphatase 166 U/L (45-117); Anion Gap 9 (5-15); BUN 4 mg/dL (7-18); BUN/Creat Ratio 9.2 RATIO (10-20); Calcium,Total 8.9 mg/dL (8.5-10.1); Chloride 104 mmol/L (98-107); Creatinine, Serum 0.43 mg/dL (0.55-1.02); EST Glomerular Filtration Rate 154 mL/min (>60); Est Glom Filt Rate - Afr Amer 187 mL/min (>60); Globulin 3.7 g/dL (2.2-4.2); Glucose 105 mg/dL (74-106); Potassium 3.4 mmol/L (3.5-5.1); Protein, Total 6.6 g/dL (6.4-8.2); Sodium Level 136 mmol/L (136-145)
== END 2021-11-05 23:59 | disposition short-term general hospital (02) ==
LOC: MFPLAB 15:50
PROVIDERS: Nurse Practitioner Family; PCP Family Medicine; Visit Provider Family Medicine
DX: R53.83 Other fatigue (principal)
CPT/HCPCS: 36415; 80053; 85025

== ENCOUNTER 2021-11-12 04:36 | Emergency (ER) | payer MEDICARE, BC, SELFPAY ==
[2021-11-12 04:37] VITALS: BP 134/78; PULSE 70; RESP 18; TEMP 36.8; O2SAT 100; BMI 18.2
--- NOTE | 2021-11-12 05:11 | CT_ITS ---
ACR Level 3 findings have been noted. An addendum which confirms receipt of the report will follow. EXAM: CT ANGIOGRAPHY CHEST WITHOUT AND WITH INTRAVENOUS CONTRAST : 1955 CLINICAL INDICATION: dyspnea TECHNIQUE: Helically acquired angiography images were obtained of the chest without and with intravenous contrast. This CT exam was performed using one or more of the following dose reduction techniques: automated exposure control, adjustment of the mA and/or kV according to patient size, and/or use of iterative reconstruction technique. This report was created using [employer] report generation technology. MIP reconstructed images were created and reviewed. CONTRAST: IV 75mL [id number] COMPARISON: 02/17/21 FINDINGS: PULMONARY ARTERIES: Unremarkable. Normal in caliber. No evidence of pulmonary embolism. AORTA: Unremarkable. Normal in caliber. No evidence of dissection. GREAT VESSELS OF AORTIC ARCH: Unremarkable. Normal in caliber. No evidence of dissection. LUNGS AND PLEURAL SPACES: Unremarkable. No mass. No consolidation or edema. No pleural effusion or thickening. No pneumothorax. HEART: Unremarkable. Heart size is normal. No pericardial effusion. No signs of right heart strain, ratio of right ventricle to left ventricle measures less than 1. MEDIASTINUM: Severe irregular thickening of the wall of the midesophagus, extending into the subcarinal region, measuring up to 3.6 x 3.4 cm. No mediastinal or hilar adenopathy. No hiatal hernia. THYROID: Unremarkable. No thyroid lesions. BONES/JOINTS: Degenerative changes of the spine. No suspicious lytic or blastic abnormality. UPPER ABDOMEN: Eventration of the left diaphragm. CT/CTA Chest W/WO Contrast IMPRESSION: 1. Severe irregular thickening of the wall of the midesophagus, extending into the subcarinal region. This is concerning for an esophageal malignancy. Follow-up with upper endoscopy is recommended. 2. No evidence of pulmonary embolism. Individualized dose optimization techniques were used for this CT. at 0557 Reported and signed by: Haris Arcos MD Electronically Signed: Haris Arcos MD at 5:56 EST ,
--- NOTE | 2021-11-12 05:14 | EKG12_ITS ---
Test Reason : SOB Blood Pressure : / mmHG Vent. Rate : 082 BPM Atrial Rate : 082 BPM P-R Int : 122 ms QRS Dur : 072 ms QT Int : 384 ms P-R-T Axes : 019 002 -42 degrees QTc Int : 448 ms Sinus rhythm with marked sinus arrhythmia Nonspecific ST and T wave abnormality Abnormal ECG Confirmed by NELY ARSHAD, COLBY ([id number]), video effects editor LOUISA FLOREZ ([id number]) on 11/13/2021 11:37:32 AM Referred By: ESMER Confirmed By:COLBY MCKAY MD
[2021-11-12] MEDS: LORazepam 2 MG/ML Syringe 1 MG IV (05:22)
[2021-11-12 05:25] LABS: Absolute Lymphocyte Count 1.82 X10^3/uL (0.83-4.51); Absolute Neutrophil Count 8.6 X10^3/uL (2.0-7.7); Basophil# 0.02 X10^3/uL; Basophil% 0.2 % (0-1); Eosinophil# 0.05 X10^3/uL; Eosinophils% 0.4 % (0-5); Hematocrit 41.6 % (37-47); Hemoglobin 14.3 g/dL (12.0-15.0); Lymphocyte # 1.82 X10^3/ul (0.83-4.51); Lymphocyte % 15.9 % (19-41); Mean Corp Hgb Conc 34.4 g/dL (32-36); Mean Corpuscular Hgb 34.4 pg (27.0-32.0); Mean Platelet Vol. 10.6 fl (6.2-12.0); Monocyte# 0.83 X10^3/uL; Monocyte% 7.3 % (0-10); NRBC Flagged by Analyzer 0 % (0-5); Neutrophil # 8.62 X10^3/uL (2.7-7.7); Neutrophil % 75.5 % (47-70); Platelet Count 406 K/mm3 (150-450); RBC Distribution Width CV 15.2 % (11.6-14.6); RBC Distribution Width SD 55.8 fl (35.1-43.9); Red Blood Count 4.16 M/mm3 (4.2-5.4); White Blood Count 11.4 K/mm3 (4.4-11.0)
[2021-11-12 05:40] LABS: Anion Gap 9 (5-15); BUN 6 mg/dL (7-18); BUN/Creat Ratio 10.3 RATIO (10-20); Calcium,Total 8.6 mg/dL (8.5-10.1); Chloride 106 mmol/L (98-107); Creatinine, Serum 0.58 mg/dL (0.55-1.02); EST Glomerular Filtration Rate 109 mL/min (>60); Est Glom Filt Rate - Afr Amer 132 mL/min (>60); Glucose 96 mg/dL (74-106); Potassium 2.8 mmol/L (3.5-5.1); Sodium Level 141 mmol/L (136-145)
[2021-11-12] MEDS: Potassium Chloride Oral Soln 20 MEQ/15 ML UDC 40 MEQ PO (06:08)
[2021-11-12 06:18] LABS: Partial Thromboplast Time 24.5 Seconds (24.1-36.2)
[2021-11-12] MEDS: Potassium Chloride 10mEq/100mL 10 MEQ/100 ML IV.SOLN. 100 MEQ IV BOLUS ×2 (06:20→07:07)
--- NOTE | 2021-11-12 06:33 | EX.ED.DYSGE1 ---
HPI History of Present Illness Chief Complaint: Shortness of Breath Narrative Narrative: Patient is a 66-year-old female with past medical history of smoking but no formal diagnosis of COPD/emphysema. She states she has been seen in the ER twice in the past 6 to 8 weeks secondary to shortness of breath with no obvious reason why. She states that she is to follow-up with her family doctor in the next few days to discuss further testing. Patient states she has been on Tessalon Perles as well as steroids and inhalers with minimal symptom improvement. Patient states that she feels like she will suddenly have difficulty breathing and gasp for air. She also reports has been having difficulty swallowing. She states that this evening she felt symptoms were more severe than they have been recently and secondary to this comes in for evaluation PFSH PFS Medical History Anemia Hypertension Osteoarthritis Smoker Home Medications latanoprost 1 drp EACH EYE BID 02/15/21 [History Last Taken 02/15/21] diazepam [Valium] 5 mg PO TID PRN 5 Days #15 tab 11/12/21 [Rx Last Taken Unknown] potassium chloride 20 meq PO DAILY 7 Days #105 ml 11/12/21 [Rx Last Taken Unknown] prednisone 20 mg PO DAILY 11/12/21 [History Last Taken Unknown] Allergy/AdvReac Type Severity Reaction Status Date / Time bee venom protein (honey bee) Allergy Hives Verified 10/25/21 14:58 Penicillins [PCN] Allergy Swelling Verified 11/12/21 04:43 Social History Smoking Status: Current every day smoker tobacco type: cigarettes details: She drinks alcohol occasionally. She did not drink for the last 4 weeks. ROS ROS ED Constitutional Constitutional ED: Denies chills or fever(s) ENT ENT ED: Denies sore throat Cardiovascular Cardiovascular: Denies chest pain Respiratory/Chest Respiratory/Chest: Reports dyspnea; Denies cough or sputum Gastrointestinal Gastrointestinal: Denies abdominal pain, diarrhea, nausea or vomiting Genitourinary Genitourinary ED: Denies dysuria Musculoskeletal Musculoskeletal: Denies myalgias Integumentary Denies rash Neurologic Neurologic: Denies headache(s) Hematologic/Lymphatic Hematologic/Lymphatic: Denies easy bleeding or easy bruising EXAM Physical Exam Const Vital Signs: 11/12/21 04:37 11/12/21 05:27 Temperature 98.3 F Temperature Source Oral Pulse Rate 70 Respiratory Rate 18 Respiratory Effort Normal Blood Pressure 134/78 H Blood Pressure Mean 96 Pulse Ox 100 Oxygen Delivery Method Room Air Positive well nourished and well developed General Appearance ED: well developed HEENT Reports moist mucous membranes HEENT Narrative: No tongue or lip swelling no oral lesions no airway edema or compromise Eyes PERRL and EOMs intact bilaterally Neck supple and no JVD Neck Narrative: Crepitance palpated no pain with external regulation of the thyroid cartilage Resp Resp Narrative: Breath sounds are diminished throughout with faint expiratory wheeze in the bilateral bases and an occasional gasp for air. However no nasal flaring retractions or tachypnea noted Cardio regular rate and regular rhythm Rate: other Other Details: Radial pulses are +2-4 bilaterally are equal and symmetric GI normal to inspection, nondistended, normoactive bowel sounds, non-tender, non-distended and no masses Auscultation: normoactive bowel sounds Palpation: soft Extremity normal to inspection Extremity Narrative: No asymmetric edema no pitting edema negative Homans' sign bilaterally Neuro oriented x3 and CN's II-XII intact bilaterally Sensorium / Orientation: alert Motor Exam: strength 5/5 throughout Psych Mood & Affect: anxious Skin no rashes or lesions noted MDM MDM MDM Narrative Medical decision making narrative: Patient presented to the ER with stable vital satting 98 to 100% on room air. She could talk in full sentences without any dyspnea but then would have an occasional gasp of air with accessory muscle use. Based on the fact she has had reported 2 - work-ups in the last 6 to [address] she gasp for air intermittently I do not feel this is lung in nature but most likely esophageal. However as she is not had a CT scan of her chest yet I did elect to perform that study today with repeat laboratory values. Blood work showed hypokalemia with a potassium of 2.8 but otherwise no clinically significant findings. EKG is also is normal sinus rhythm. CTA of the chest reveals no acute lung pathology but it does document an irregularly thickened esophagus concerning for possible malignancy. This finding does correlate with her difficulty swallowing as well as the intermittent gasping of air. At this time I will place the patient on Valium to help with anxiety and smooth muscle relaxation as well as oral potassium to replace the low value found today. She will be given 40 mEq orally and 20 IV prior to discharge. However at this time as she is in no acute respiratory distress and satting in the high 90s to 100% I do not feel that the irregular thickened esophagus needs work-up as an inpatient basis and she can see GI to discuss EGD in the next 1 to 2 weeks. Lab Data Attestation: I reviewed the patient's lab results. Labs: Laboratory Results - last 24 hr 11/12/21 11/12/21 11/12/21 04:50 04:50 04:50 WBC 11.4 H RBC 4.16 L Hgb 14.3 Hct 41.6 MCV 100.0 H MCH 34.4 H MCHC 34.4 RDW Std Deviation 55.8 H RDW Coeff of Ismael 15.2 H Plt Count 406 MPV 10.6 Immature Gran % (Auto) 0.700 Neut % (Auto) 75.5 H Lymph % (Auto) 15.9 L [place] % (Auto) 7.3 Eos % (Auto) 0.4 Baso % (Auto) 0.2 Absolute Neuts (auto) 8.6 H Absolute Lymphs (auto) 1.82 Nucleated RBC % 0 PT 13.0 INR 1.0 APTT 24.5 Sodium Potassium Chloride Carbon Dioxide Anion Gap BUN Creatinine Estim Creat Clear Calc Est GFR (MDRD) Af Amer Est GFR (MDRD) Non-Af BUN/Creatinine Ratio Glucose Calcium B-Natriuretic Peptide 87.0 11/12/21 04:50 WBC RBC Hgb Hct MCV MCH MCHC RDW Std Deviation RDW Coeff of Ismael Plt Count MPV Immature Gran % (Auto) Neut % (Auto) Lymph % (Auto) [place] % (Auto) Eos % (Auto) Baso % (Auto) Absolute Neuts (auto) Absolute Lymphs (auto) Nucleated RBC % PT INR APTT Sodium 141 Potassium 2.8 L Chloride 106 Carbon Dioxide 26.0 Anion Gap 9 BUN 6 L Creatinine 0.58 Estim Creat Clear Calc 40.80 Est GFR (MDRD) Af Amer 132 Est GFR (MDRD) Non-Af 109 BUN/Creatinine Ratio 10.3 Glucose 96 Calcium 8.6 B-Natriuretic Peptide Radiography Diagnostic Testing: Clinical Impression(s) from Imaging Studies Chest CTA 11/12/21 05:11 IMPRESSION: 1. Severe irregular thickening of the wall of the midesophagus, extending into the subcarinal region. This is concerning for an esophageal malignancy. Follow-up with upper endoscopy is recommended. 2. No evidence of pulmonary embolism. Individualized dose optimization techniques were used for this CT. at 0557 Reported and signed by: Haris Arcos MD Electronically Signed: Haris Arcos MD at 5:56 EST Reading Location ID and State: [facility] / [place] Tel , Service support , ADDENDUM: 11/12/21 0611 IMPRESSION: 1. Severe irregular thickening of the wall of the midesophagus, extending into the subcarinal region. This is concerning for an esophageal malignancy. Follow-up with upper endoscopy is recommended. 2. No evidence of pulmonary embolism. Individualized dose optimization techniques were used for this CT. at 0557 Reported and signed by: Haris Arcos MD N.B. : Luz Maria Mcclellan RN, confirmed on 11/12/2021 06:04:34 (ET) that the healthcare facility has received the radiology report. Electronically Signed: Haris Arcos MD at 5:56 EST Reading Location ID and State: [address] [place] [address] Tel , Service support , Discharge Plan Triage Chief Complaint: Shortness of Breath ED Provider: Kevin Coelho Dx/Rx/DC Orders Clinical Impression: Dyspnea, Diffuse esophageal spasm, Esophageal thickening, Hypokalemia Instructions: ED Dyspnea, ED Esophageal Spasm Prescriptions: New potassium chloride 20 mEq/15 mL liquid 20 meq PO DAILY 7 Days Qty: 105 RF: 0 diazepam [Valium] 5 mg tablet 5 mg PO TID PRN (Reason: muscle spasm) 5 Days Qty: 15 RF: 0 No Action latanoprost 0.005 % Drops 1 drp EACH EYE BID RF: 0 prednisone 20 mg tablet 20 mg PO DAILY RF: 0 Primary Care Provider: David Montenegro Referrals: David Montenegro MD [Primary Care Provider] - Friend,DO Roger [STAFF PHYSICIAN] - 3-5 Days Activity Restrictions/Additional Instructions: Please follow-up with GI to discuss need for repeat EGD based on the abnormal CT scan today and return to the ER should you have any further concerns Disposition Disposition: Home, Self Care
[2021-11-12 06:46] VITALS: BP 123/71; PULSE 69; RESP 17; O2SAT 98
--- NOTE | 2021-11-12 06:52 | ED.RN ---
Ativan is ordered but patient is sleeping so will wait to see if patient still wants it when wakes up/discharges.
[2021-11-12 07:08] VITALS: BP 125/74; PULSE 77; RESP 20; O2SAT 100
== END 2021-11-12 08:42 | disposition home or self-care (01) ==
PROVIDERS: Emergency Provider Emergency Medicine; PCP Family Medicine; Visit Provider Emergency Medicine
DX: R06.00 Dyspnea, unspecified (principal); K22.4 Dyskinesia of esophagus; E87.6 Hypokalemia; F17.210 Nicotine dependence, cigarettes, uncomplicated; Z79.899 Other long term (current) drug therapy
CPT/HCPCS: 71275; 80048; 83880; 85025; 85610; 85730; 93005; 96365; 96366; 96375; 96376; 99283; J7030; Q9967; A4216

== ENCOUNTER 2021-11-20 11:52 | Day surgery (SDC) | payer MEDICARE, BC, SELFPAY ==
--- NOTE | 2021-11-20 | IMM_PTH ---
PATIENT: VEENA STPEHENSON LOC: EN U#:[id number] AGE/SX: 66/F ROOM: RE11/20/[address]: Dr. Roger Stringer DO : 1955 BED: DIS: 11/20/2021 SPEC #: [id number] RECD: 11/22/21 14:02 STATUS: SONYA REQ #: [id number] MICHELLE: 11/20/21 00:[address]: Roger Stringer DEPT: IMMUNOHISTOCHEMISTRY RECD BY: Sandra Correia ENTERED: 11/22/21 14:03 SP TYPE: IMMUNO OTHR DR: Dr. David Montenegro MD Tissues: Esophagus, NOS Procedures: CK20 (add) CK5-6 (add) CK7 (add) CK8 (add) P16 (add) Pankeratin (initial) P40 (add) PHYSICIAN & INSTITUTION [place] [phone] SPECIMEN INFORMATION: Tissue Source: B ? Esophageal mass Clinical Info: Esophageal mass Specimen Number: [id number] CPT code: 74782, 40165 x6 METHODOLOGY: Deparaffinized sections of prefer/formalin-fixed tissue or PAP/DQ stained slides are incubated with monoclonal/polyclonal antibodies/oligonucleotide probes. Localization is made via biotin free immunoperoxidase method. Appropriate controls are performed and reacted as expected. Results on target cell population are indicated in the following table: RESULTS: ANTIBODY / CLONE RESULT Block B AE1-3 (AE1/AE3/PCK26) positive CK7 (OV-TL12/30) negative CK8 (18xomkR63) positive CK20 (KS20.8) negative CK5-6 (D5 & 1684) positive P40 (BC28) positive P16 (E6H4) negative These tests were developed and their performance characteristics determined by [facility]. They may not have been cleared or approved by the U.S. Food and Drug Administration. The FDA has determined that such clearance or approval is not necessary. The above immunohistochemical/dualISH markers are ordered and reviewed by the Pathologist. INTERPRETATION: B. Esophageal mass, biopsy: Invasive squamous cell carcinoma. CONNER:monisha 11/23/2021
--- NOTE | 2021-11-20 | ESO_PTH ---
PATIENT: VEENA STEPHENSON LOC: EN U#:[id number] AGE/SX: 66/F ROOM: RE11/20/[address]: Dr. Roger Stringer DO : 1955 BED: DIS: 11/20/2021 SPEC #: [id number] RECD: 11/20/21 13:24 STATUS: SONYA REJose #: [id number] MICHELLE: 11/20/21 00:[address]: Roger Stringer DEPT: SURGICAL PATHOLOGY RECD BY: Sandra Correia ENTERED: 11/20/21 15:31 SP TYPE: MADIHA BENTLEY DR: Dr. David Montenegro MD Tissues: A - Esophagus, NOS B - Esophagus, NOS Procedures: Frozen Section (charge) Special Stain Group I Surgery Specimen Level IV GMS Stain (control) HEADER OPERATION: EGD ([facility]) with biopsy PRE-OP DIAGNOSIS: Severe irregular thickening of wall of mid esophagus extending into the subcarinal region TISSUE SUBMITTED: A ? Esophageal mass, esophagus, FS at 1318, B ? Esophageal mass FROZEN SECTION DIAGNOSIS A. Esophagus, mass, biopsy: Invasive squamous cell carcinoma. SJ:monisha 11/20/2021 Case has been reviewed in consultation with Dr. Reyes who concurs with the above diagnosis. IDC:AM MICROSCOPIC DIAGNOSIS A. Esophageal mass, biopsy: Invasive squamous cell carcinoma with extensive ulceration. B. Esophageal mass, biopsy: Invasive moderately differentiated squamous cell carcinoma with extensive ulceration and associated inflammation. See comment. SJ:monisha 11/22/2021 COMMENT B. Immunohistochemistry ([id number]) supports the above diagnosis. A fragment of tissue with extensive bacterial colonization is also noted. Special stain for fungi is negative for organisms; matched control is appropriate. MICROSCOPIC DESCRIPTION Slides are reviewed. GROSS DESCRIPTION A - Received fresh for frozen section diagnosis labeled with the patient's name is a specimen designated esophagus. The specimen consists of multiple irregular fragments of donald soft tissue that in aggregate measure 0.5 x 0.5 x 0.1 cm. The entire specimen is submitted for frozen section diagnosis in one cassette. / SJ:monisha 11/20/2021 B - Received in fixative is one container labeled with the patient's name and designated esophageal mass. The specimen consists of multiple irregular fragments of light donald soft tissue that in aggregate measure 2 x 0.6 x 0.1 cm. The specimen is totally submitted in one cassette. / AM:monisha 11/21/2021 TC:0 CPT: 68190 x2, 37397, 92008
[2021-11-20] MEDS: Lactated Ringers 1,000 ML 15 ML IV (12:05)
[2021-11-20 12:28] VITALS: BP 130/88; PULSE 82; RESP 18; TEMP 36.7; O2SAT 98; BMI 16.8
--- NOTE | 2021-11-20 12:45 | PCM.HP.BLA ---
History and Physical Date of Admission: 11/20/21 66-year-old female with past medical history of smoking but no formal diagnosis of COPD/emphysema. She states she has been seen in the ER twice in the past 6 to 8 weeks secondary to shortness of breath with no obvious reason why. She states that she is to follow-up with her family doctor in the next few days to discuss further testing. Patient states she has been on Tessalon Perles as well as steroids and inhalers with minimal symptom improvement. Patient states that she feels like she will suddenly have difficulty breathing and gasp for air. She also reports has been having difficulty swallowing. She states that this evening she felt symptoms were more severe than they have been recently and presented to the ED secondary to this comes in for evaluation.CTA of the chest reveals no acute lung pathology but it does document an irregularly thickened esophagus concerning for possible malignancy. This finding does correlate with her difficulty swallowing as well as the intermittent gasping of air. She comes in today for endoscopic evaluation. PFSH PFSH Medical History Anemia Hypertension Osteoarthritis Smoker ROS ROS ED Constitutional Constitutional ED: Denies chills or fever(s) ENT ENT ED: Denies sore throat Cardiovascular Cardiovascular: Denies chest pain Respiratory/Chest Respiratory/Chest: Reports dyspnea; Denies cough or sputum Gastrointestinal Gastrointestinal: Denies abdominal pain, diarrhea, nausea or vomiting Genitourinary Genitourinary ED: Denies dysuria Musculoskeletal Musculoskeletal: Denies myalgias Integumentary Denies rash Neurologic Neurologic: Denies headache(s) Hematologic/Lymphatic Hematologic/Lymphatic: Denies easy bleeding or easy bruising Positive well nourished and well developed General Appearance ED: well developed HEENT Reports moist mucous membranes HEENT Narrative: No tongue or lip swelling no oral lesions no airway edema or compromise Eyes PERRL and EOMs intact bilaterally Neck supple and no JVD Neck Narrative: Crepitance palpated no pain with external regulation of the thyroid cartilage Resp Resp Narrative: Breath sounds are diminished throughout with faint expiratory wheeze in the bilateral bases and an occasional gasp for air. However no nasal flaring retractions or tachypnea noted Cardio regular rate and regular rhythm Rate: other Other Details: Radial pulses are +2-4 bilaterally are equal and symmetric GI normal to inspection, nondistended, normoactive bowel sounds, non-tender, non-distended and no masses Auscultation: normoactive bowel sounds Palpation: soft Extremity normal to inspection Extremity Narrative: No asymmetric edema no pitting edema negative Homans' sign bilaterally Neuro oriented x3 and CN's II-XII intact bilaterally Sensorium / Orientation: alert Motor Exam: strength 5/5 throughout Psych Mood & Affect: anxious Skin no rashes or lesions noted ks. Lab Data Labs:Laboratory Results - last 24 hr 11/12/21 11/12/21 11/12/21 04:50 04:50 04:50 WBC 11.4 H RBC 4.16 L Hgb 14.3 Hct 41.6 MCV 100.0 H MCH 34.4 H MCHC 34.4 RDW Std Deviation 55.8 H RDW Coeff of Ismael 15.2 H Plt Count 406 MPV 10.6 Immature Gran % (Auto) 0.700 Neut % (Auto) 75.5 H Lymph % (Auto) 15.9 L [place] % (Auto) 7.3 Eos % (Auto) 0.4 Baso % (Auto) 0.2 Absolute Neuts (auto) 8.6 H Absolute Lymphs (auto) 1.82 Nucleated RBC % 0 PT 13.0 INR 1.0 APTT 24.5 Sodium Potassium Chloride Carbon Dioxide Anion Gap BUN Creatinine Estim Creat Clear Calc Est GFR (MDRD) Af Amer Est GFR (MDRD) Non-Af BUN/Creatinine Ratio Glucose Calcium B-Natriuretic Peptide 87.0 11/12/21 04:50 WBC RBC Hgb Hct MCV MCH MCHC RDW Std Deviation RDW Coeff of Ismael Plt Count MPV Immature Gran % (Auto) Neut % (Auto) Lymph % (Auto) [place] % (Auto) Eos % (Auto) Baso % (Auto) Absolute Neuts (auto) Absolute Lymphs (auto) Nucleated RBC % PT INR APTT Sodium 141 Potassium 2.8 L Chloride 106 Carbon Dioxide 26.0 Anion Gap 9 BUN 6 L Creatinine 0.58 Estim Creat Clear Calc 40.80 Est GFR (MDRD) Af Amer 132 Est GFR (MDRD) Non-Af 109 BUN/Creatinine Ratio 10.3 Glucose 96 Calcium 8.6 B-Natriuretic Peptide Radiography Diagnostic Testing: Clinical Impression(s) from Imaging Studies Chest CTA 11/12/21 05:11 IMPRESSION: 1. Severe irregular thickening of the wall of the midesophagus, extending into the subcarinal region. This is concerning for an esophageal malignancy. Follow-up with upper endoscopy is recommended. 2. No evidence of pulmonary embolism. Individualized dose optimization techniques were used for this CT. ADDENDUM: 11/12/21 0611 IMPRESSION: 1. Severe irregular thickening of the wall of the midesophagus, extending into the subcarinal region. This is concerning for an esophageal malignancy. Follow-up with upper endoscopy is recommended. 2. No evidence of pulmonary embolism. Individualized dose optimization techniques were used for this CT. Assessment and plan Severe esophagitis possibly secondary to esophagitis, eosinophilic esophagitis, esophageal web, esophageal stricture secondary to neoplasm. Patient did undergo upper endoscopy evaluate her upper GI tract. She was explained alternatives, risk, benefits including understanding bleeding, infection, sepsis, perforation, need for emergent surgery . She will have an ASA of 3.
[2021-11-20 12:53] LABS: Absolute Lymphocyte Count 0.99 X10^3/uL (0.83-4.51); Absolute Neutrophil Count 10.6 X10^3/uL (2.0-7.7); Basophil# 0.06 X10^3/uL; Basophil% 0.5 % (0-1); Eosinophil# 0.07 X10^3/uL; Eosinophils% 0.5 % (0-5); Hematocrit 40.3 % (37-47); Hemoglobin 13.1 g/dL (12.0-15.0); Lymphocyte # 0.99 X10^3/ul (0.83-4.51); Lymphocyte % 7.5 % (19-41); Mean Corp Hgb Conc 32.5 g/dL (32-36); Mean Corpuscular Hgb 33.1 pg (27.0-32.0); Mean Corpuscular Volume 101.8 fL (81-99); Mean Platelet Vol. 10.7 fl (6.2-12.0); Monocyte# 1.48 X10^3/uL; Monocyte% 11.2 % (0-10); NRBC Flagged by Analyzer 0 % (0-5); Neutrophil # 10.55 X10^3/uL (2.7-7.7); Neutrophil % 79.9 % (47-70); Platelet Count 240 K/mm3 (150-450); RBC Distribution Width CV 14.3 % (11.6-14.6); RBC Distribution Width SD 53.1 fl (35.1-43.9); Red Blood Count 3.96 M/mm3 (4.2-5.4); White Blood Count 13.2 K/mm3 (4.4-11.0)
[2021-11-20 13:10] LABS: ALB/GLOB Ratio 0.5 RATIO (0.9-2.4); AST(SGOT) 21 U/L (15-37); Alanine Aminotransfer ALT/SGPT 9 U/L (13-56); Albumin, Serum 2.2 g/dL (3.2-5.0); Alkaline Phosphatase 138 U/L (45-117); Anion Gap 8 (5-15); BUN 11 mg/dL (7-18); BUN/Creat Ratio 23.6 RATIO (10-20); Calcium,Total 8.9 mg/dL (8.5-10.1); Chloride 106 mmol/L (98-107); Creatinine, Serum 0.47 mg/dL (0.55-1.02); EST Glomerular Filtration Rate 142 mL/min (>60); Est Glom Filt Rate - Afr Amer 172 mL/min (>60); Estimated Creatinine Clearance 37.74 ml/min; Globulin 4.2 g/dL (2.2-4.2); Glucose 88 mg/dL (74-106); Potassium 3.9 mmol/L (3.5-5.1); Protein, Total 6.4 g/dL (6.4-8.2); Sodium Level 141 mmol/L (136-145)
[2021-11-20 13:25] VITALS: BP 109/78; BP 119/74; BP 130/88; PULSE 105; PULSE 108; RESP 24; RESP 32; TEMP 36.8; O2SAT 100; O2SAT 99
[2021-11-20 13:35] VITALS: BP 114/80; BP 130/88; PULSE 108; RESP 20; O2SAT 99
[2021-11-20 13:40] VITALS: BP 130/88; BP 134/71; PULSE 92; RESP 18; O2SAT 100
[2021-11-20 13:45] VITALS: BP 130/88; BP 139/92; PULSE 88; RESP 18; TEMP 36.8; O2SAT 100
--- NOTE | 2021-11-20 13:46 | OP.EGD_ITS ---
Patient Name: Bev Jeffers Procedure Date: 11/20/2021 12:49 PM Date of : 1955 Age: 66 Procedure: Upper GI endoscopy Indications: Dysphagia Providers: Roger Stringer DO Medicines: See the Anesthesia note for documentation of the administered medications Patient Profile: This is a 66 year old female. Refer to note in patient chart for documentation of history and physical. Patient has symptoms of acute cough, chronic dysphagia and dysphagia with both liquids and solids. The symptoms first began February. She is status post EGD for biopsy one year ago. Complications: No immediate complications. Procedure: Pre-Anesthesia Assessment: - Prior to the procedure, a History and Physical was performed, and patient medications and allergies were reviewed. The patient is competent. The risks and benefits of the procedure and the sedation options and risks were discussed with the patient. All questions were answered and informed consent was obtained. Patient identification and proposed procedure were verified by the physician in the pre-procedure area. Mental Status Examination: alert and oriented. Airway Examination: normal oropharyngeal airway and neck mobility. Respiratory Examination: clear to auscultation. CV Examination: normal. Prophylactic Antibiotics: The patient does not require prophylactic antibiotics. Prior Anticoagulants: The patient has taken no previous anticoagulant or antiplatelet agents. ASA Grade Assessment: II - A patient with mild systemic disease. After reviewing the risks and benefits, the patient was deemed in satisfactory condition to undergo the procedure. The anesthesia plan was to use moderate sedation / analgesia (conscious sedation). Immediately prior to administration of medications, the patient was re-assessed for adequacy to receive sedatives. The heart rate, respiratory rate, oxygen saturations, blood pressure, adequacy of pulmonary ventilation, and response to care were monitored throughout the procedure. The physical status of the patient was re-assessed after the procedure. After obtaining informed consent, the endoscope was passed under direct vision. Throughout the procedure, the patient's blood pressure, pulse, and oxygen saturations were monitored continuously. The gastroscope was introduced through the mouth, and advanced to the second part of duodenum. The upper GI endoscopy was accomplished without difficulty. The patient tolerated the procedure well. Moderate Sedation: Moderate (conscious) sedation was administered by the endoscopy nurse and supervised by the endoscopist. The following parameters were monitored: oxygen saturation, heart rate, blood pressure, and response to care. Total physician intraservice time was 15 minutes. Scope In: 1:07:05 PM Scope Out: 1:20:35 PM Total Procedure Duration Time 0 hours 13 minutes 30 seconds Findings: A large, ulcerating mass with bleeding and stigmata of recent bleeding was found in the proximal esophagus and in the mid esophagus, 20 cm from the incisors. The mass was partially obstructing and partially circumferential (involving two thirds of the lumen circumference). Biopsies were taken with a cold forceps for histology. Verification of patient identification for the specimen was done. Estimated blood loss was minimal. Two malignant-appearing, intrinsic stenoses were found 20 to 28 cm from the incisors. These stenoses were moderately severe (circumferential scarring or stenosis; an endoscope may pass) and the narrowest stenosis measured 6 cm (in length). The stenoses were traversed. Grade I varices were found in the lower third of the esophagus. They were 5 mm in largest diameter. A small hiatal hernia was present. Moderate portal hypertensive gastropathy was found in the entire examined stomach. The second portion of the duodenum was normal. Impression: - Partially obstructing, malignant esophageal tumor was found in the proximal esophagus and in the mid esophagus. Biopsied. - Malignant-appearing esophageal stenoses. - Grade I esophageal varices. - Small hiatal hernia. - Portal hypertensive gastropathy. - Normal second portion of the duodenum. Recommendation: - Discharge patient to home. - Clear liquid diet. - Continue present medications. - Await pathology results. Procedure Code(s): --- Professional --- 61812, Esophagogastroduodenoscopy, flexible, transoral; with biopsy, single or multiple 80720, 59, Moderate sedation services provided by the same physician or other qualified health pet care assistant performing the diagnostic or therapeutic service that the sedation supports, requiring the presence of an independent trained observer to assist in the monitoring of the patient's level of consciousness and physiological status; initial 15 minutes of intraservice time, patient age 5 years or older CPT copyright 2017 [employer]. All rights reserved. The codes documented in this report are preliminary and upon vice president of nursing review may be revised to meet current compliance requirements. Roger Stringer DO 11/20/2021 1:45:57 PM This report has been signed electronically. Number of Addenda: 1 Note Initiated On: 11/20/2021 12:49 PM Addendum Number: 1 Addendum Date: 06/24/2022 6:48:53 AM MAC was used for sedation during this procedure. Roger Stringer DO 06/24/2022 6:48:59 AM This report has been signed electronically.
--- NOTE | 2021-11-20 13:47 | OP.CCLET_ITS ---
06/24/2022 David Montenegro MD [address] [phone] Re : Upper GI endoscopy procedure for Bev Jeffers Dear Dr. Montenegro This procedure was performed on Saturday, November 20, 2021. 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 Biopsied. - Malignant-appearing esophageal stenoses. - Grade I esophageal varices. - Small hiatal hernia. - Portal hypertensive gastropathy. - Normal second portion of the duodenum. Recommendations : - Discharge patient to home. - Clear liquid diet. - Continue present medications. - Await pathology results. My findings are described in the full procedure note, which is enclosed. If I can be of further assistance, please feel free to contact me at . Sincerely, Roger Stringer, 11/20/2021 1:45:57 PM This report has been signed electronically.
[2021-11-20 14:01] VITALS: BP 130/88
== END 2021-11-20 23:59 | disposition home or self-care (01) ==
LOC: EN 11:54 → AC 11:55
PROVIDERS: PCP Family Medicine; Referring Provider Family Medicine; Visit Provider Internal Medicine Gastroenterology
PROC: 0DJ08ZZ Inspection of Upper Intestinal Tract, Via Natural or Artificial Opening Endoscopic (ICD-10-PCS; CPT 43235; principal; 2021-11-20 12:55)
DX: C15.4 Malignant neoplasm of middle third of esophagus (principal); K76.6 Portal hypertension; I85.00 Esophageal varices without bleeding; K31.89 Other diseases of stomach and duodenum; Q39.4 Esophageal web; K22.2 Esophageal obstruction; K44.9 Diaphragmatic hernia without obstruction or gangrene; K21.9 Gastro-esophageal reflux disease without esophagitis; F17.200 Nicotine dependence, unspecified, uncomplicated; Z79.899 Other long term (current) drug therapy
CPT/HCPCS: 43239; 80053; 85025; 87426; 88305; 88312; 88331; 88341; 88342; J7120; J2405

== ENCOUNTER 2021-11-22 11:50 | Inpatient (IN) | payer MEDICARE, BC, SELFPAY ==
[2021-11-22] VITALS (7 sets, daily range): BP systolic 110–156; BP diastolic 56–91; PULSE 74–104; RESP 12–29; TEMP 36.4–37.2; O2SAT 95–99; BMI 17.3; BMI 17.1
--- NOTE | 2021-11-22 12:05 | EX.ED.DYSGE1 ---
HPI History of Present Illness Chief Complaint: Weakness Narrative Narrative: Patient presents with her for generalized weakness that she has had over the last 4 days. Of significance, 2 weeks ago she was seen in the emergency department for cough. At that time she states that she was diagnosed with esophageal cancer/mass. On Friday she had endoscopy by Dr. Stringer who confirmed the esophageal mass. She has not seen oncology/hematology as of yet. While she has chronic nausea and cough, she is currently on promethazine/codeine syrup. She has not been able to eat anything because it is difficult for her to swallow. She denies any projectile vomiting. No fevers or chills. She states that she is having decreased urination. [facility] Medical History Alcohol use Ambulates with cane Anemia Chronic cough Difficulty chewing Difficulty swallowing Gastric reflux High cholesterol History of steroid therapy Hoarseness Hx of retinal detachment Hypertension Osteoarthritis Post-menopausal Shortness of breath on exertion Smoker Walker as ambulation aid Home Medications diazepam 5 mg PO TID PRN 11/22/21 [History Last Taken 11/19/21] omeprazole 20 mg PO DAILY 11/22/21 [History Last Taken 11/18/21] potassium chloride 20 meq PO DAILY 11/22/21 [History Last Taken 11/18/21] viawldrqmbfb-oscedhbyf-kjiqncb 5 ml PO Q6H PRN 11/22/21 [History Last Taken 11/22/21 08:30] Allergy/AdvReac Type Severity Reaction Status Date / Time bee venom protein (honey bee) Allergy Hives Verified 11/20/21 12:28 Penicillins [PCN] Allergy Swelling Verified 11/20/21 12:28 Surgical History Hx of foot surgery Social History Smoking Status: Former smoker details: She drinks alcohol occasionally. She did not drink for the last 4 weeks. ROS ROS ED ROS Narrative Constitutional: No fever, no chills. HEENT: No sore throat. No neck pain. No loss of vision. No rhinorrhea. Cardiovascular: No chest pain. No palpitations. No pedal edema. Respiratory: Chronic cough, no shortness of breath. Abdominal: No abdominal pain. Mild nausea. No vomiting. Genitourinary: No dysuria. No hematuria. Decreased urination. Musculoskeletal: No myalgias. No arthralgias. Neurologic: No headaches. No dizziness. No lightheadedness. Generalized weakness. Skin: No rash. No change in color. Psychiatric: No depression. No anxiety. EXAM Physical Exam Narrative Exam Narrative: Afebrile. Vital signs noted. Positive cachexia. HEENT: Normocephalic. Atraumatic. PERRL, EOMI. Neck soft and supple. No point tenderness or step off. Cardiovascular: Regular rate and rhythm with intermittent tachycardia. No murmurs, rubs, or gallops appreciated. Respiratory: No tachypnea. Decreased breath sounds bilateral bases.. Gastrointestinal: Abdomen soft, nontender, with normoactive bowel sounds. No rebound or guarding. Neurological: Awake. Alert. Nonfocal, nonlateralizing. Skin: No rash. Normal color. No pallor. Musculoskeletal: No pedal edema. Full range of motion extremities. Ambulatory in ED. Const Vital Signs: 11/22/21 11:50 11/22/21 11:53 11/22/21 12:42 Temperature 97.5 F L 97.5 F L Temperature Source Temporal Temporal Pulse Rate 104 H 82 Respiratory Rate 17 29 H Respiratory Effort Labored Respiratory Pattern Tachypnea Blood Pressure 118/87 H 110/75 Blood Pressure Mean 97 86 Pulse Ox 98 97 Oxygen Delivery Method Room Air Room Air 11/22/21 13:22 Temperature 98.3 F Temperature Source Temporal Pulse Rate 88 Respiratory Rate 14 Respiratory Effort Respiratory Pattern Blood Pressure 145/91 H Blood Pressure Mean 109 Pulse Ox 95 Oxygen Delivery Method Room Air MDM MDM MDM Narrative Medical decision making narrative: I reviewed her prior records. Her CTA did show thickening of the mid esophageal area consistent with/concern for esophageal malignancy. As she states that she has been having difficulty swallowing over the last 4 days, I will repeat her laboratory work to check for dehydration and she will be bolused normal saline 1 L intravenously. CBC shows white count of 10 with hemoglobin stable at 13, MCV slightly elevated at 101.3. Electrolyte panel shows potassium slightly low at 3.3. She had been taking supplementation orally, but states that she stopped that because it hurt too much. Creatinine low at 0.4, alk phos slightly elevated at 123 but I think is nonspecific. Albumin low at 2.4. Urinalysis is positive for nitrites and 500 leukocytes but 0 WBCs. Of significant R 50 ketones in her urine. Given her odynophagia and mild dehydration, I discussed patient with Dr. Joel Mosley for observation. I had also discussed the patient with social work as the states that he is having difficulty caring for her at home. Disposition is assigned to observation. Patient is in stable condition. Lab Data Attestation: I reviewed the patient's lab results. Labs: Laboratory Results - last 24 hr 11/22/21 11/22/21 11/22/21 12:20 12:20 13:20 WBC 10.0 RBC 3.94 L Hgb 13.0 Hct 39.9 MCV 101.3 H MCH 33.0 H MCHC 32.6 RDW Std Deviation 52.7 H RDW Coeff of Ismael 14.2 Plt Count 274 MPV 11.4 Immature Gran % (Auto) 0.600 Neut % (Auto) 75.6 H Lymph % (Auto) 13.3 L [place] % (Auto) 9.1 Eos % (Auto) 0.8 Baso % (Auto) 0.6 Absolute Neuts (auto) 7.5 Absolute Lymphs (auto) 1.32 Nucleated RBC % 0 Sodium 141 Potassium 3.3 L Chloride 106 Carbon Dioxide 29.0 Anion Gap 6 BUN 6 L Creatinine 0.43 L Estim Creat Clear Calc 38.83 Est GFR (MDRD) Af Amer 189 Est GFR (MDRD) Non-Af 156 BUN/Creatinine Ratio 14.0 Glucose 98 Calcium 9.0 Total Bilirubin 0.90 AST 19 ALT 9 L Alkaline Phosphatase 123 H Total Protein 6.6 Albumin 2.4 L Globulin 4.2 Albumin/Globulin Ratio 0.6 L Urine Color Yellow Urine Clarity Sl. Cloudy Urine pH 6.0 Ur Specific [place] 1.020 Urine Protein 30 H Urine Glucose (UA) Normal Urine Ketones 50 H Urine Occult Blood 10 H Urine Nitrite Positive H Urine Bilirubin 3 H Urine Urobilinogen 8 H Ur Leukocyte Esterase 500 H Urine RBC 0-5 SEEN Urine WBC 0 SEEN Ur Squamous Epith Cells 0-5 SEEN Urine Bacteria 0 SEEN Urine Mucus 0 SEEN Discharge Plan Dx/Rx/DC Orders Clinical Impression: Esophageal cancer, Odynophagia, Chronic coughing, Dehydration Disposition Disposition: Acute Care [facility]
[2021-11-22 12:36] LABS: Absolute Lymphocyte Count 1.32 X10^3/uL (0.83-4.51); Absolute Neutrophil Count 7.5 X10^3/uL (2.0-7.7); Basophil# 0.06 X10^3/uL; Basophil% 0.6 % (0-1); Eosinophil# 0.08 X10^3/uL; Eosinophils% 0.8 % (0-5); Hematocrit 39.9 % (37-47); Lymphocyte # 1.32 X10^3/ul (0.83-4.51); Lymphocyte % 13.3 % (19-41); Mean Corp Hgb Conc 32.6 g/dL (32-36); Mean Corpuscular Volume 101.3 fL (81-99); Mean Platelet Vol. 11.4 fl (6.2-12.0); Monocyte# 0.91 X10^3/uL; Monocyte% 9.1 % (0-10); NRBC Flagged by Analyzer 0 % (0-5); Neutrophil # 7.53 X10^3/uL (2.7-7.7); Neutrophil % 75.6 % (47-70); Platelet Count 274 K/mm3 (150-450); RBC Distribution Width CV 14.2 % (11.6-14.6); RBC Distribution Width SD 52.7 fl (35.1-43.9); Red Blood Count 3.94 M/mm3 (4.2-5.4)
[2021-11-22 12:51] LABS: ALB/GLOB Ratio 0.6 RATIO (0.9-2.4); AST(SGOT) 19 U/L (15-37); Alanine Aminotransfer ALT/SGPT 9 U/L (13-56); Albumin, Serum 2.4 g/dL (3.2-5.0); Alkaline Phosphatase 123 U/L (45-117); Anion Gap 6 (5-15); BUN 6 mg/dL (7-18); Chloride 106 mmol/L (98-107); Creatinine, Serum 0.43 mg/dL (0.55-1.02); EST Glomerular Filtration Rate 156 mL/min (>60); Est Glom Filt Rate - Afr Amer 189 mL/min (>60); Estimated Creatinine Clearance 38.83 ml/min; Globulin 4.2 g/dL (2.2-4.2); Glucose 98 mg/dL (74-106); Potassium 3.3 mmol/L (3.5-5.1); Protein, Total 6.6 g/dL (6.4-8.2); Sodium Level 141 mmol/L (136-145)
[2021-11-22] MEDS: 0.9% Normal Saline 1,000 ML 1000 ML IV (13:00)
[2021-11-22 13:30] LABS: Bacteria 0 SEEN /hpf (None Seen); Mucous, Urine 0 SEEN /hpf (<or=2+); White Blood Cells 0 SEEN /hpf (0-5)
[2021-11-22 13:40] LABS: Color, Urine Yellow (Yellow); Glucose, Dipstick Normal (Normal); Ketone-Dipstick 50 mg/dl (Negative); Leukocyte Esterase-Dipstick 500 /ul (Negative); Nitrite-Dipstick Positive (Negative); Occult Blood-Urine 10 /ul (Negative); Protein-Dipstick 30 mg/dl (Negative); Urine Clarity Sl. Cloudy (Clear); Urine Urobilinogen 8 mg/dl (Normal)
[2021-11-22 13:43] LABS: Urine Bilirubin Dipstick 3 mg/dL (Negative)
[2021-11-22 13:48] LABS: Red Blood Cells-Urine 0-5 SEEN /hpf (0-5); Squamous Epithelial Cells - UA 0-5 SEEN /hpf (5-10)
--- NOTE | 2021-11-22 14:24 | NURSING ---
MED SURG JOPPERI OBS DEHYDRATION, ESOPHAGEAL CARCINOMA, CHRONIC COUGH
--- NOTE | 2021-11-22 14:47 | HP.PCM.HOS_ITS ---
HPI - General General Date of Admission: 11/22/21 Date of Service: 11/22/21 Chief Complaint: weakness HPI Narrative VEENA STEPHENSON, is a 66 F who presents with weakness. Patient presented to the emergency room on the and was diagnosed with esophageal mass at that time. Patient was referred to gastroenterology and underwent an EGD with Dr. Stringer on the . On the EGD it was noted the patient had a large ulcerating mass with bleeding and stigmata of recent bleeding found in the proximal esophagus at around 20 cm from the incisors. The mass was partially obstructing and partially circumferential involving two thirds of the lumen. Biopsies were taken at that time. Biopsy results are still pending. Since being home, yandel bryant is unable to eat or drink. States that she just immediately coughed that up. She is just progressively got weaker. Over the past year, patient has lost roughly 40pounds. Of note, patient had an EGD back in February 2021 there is no mention of an esophageal mass at that time was noted erythematous mucosa in the antrum of the stomach that was biopsied. [facility] Medical History Alcohol use Ambulates with cane Anemia Chronic cough Difficulty chewing Difficulty swallowing Gastric reflux High cholesterol History of steroid therapy Hoarseness Hx of retinal detachment Hypertension Osteoarthritis Post-menopausal Shortness of breath on exertion Smoker Walker as ambulation aid Home Medications diazepam 5 mg PO TID PRN 11/22/21 [History Last Taken 11/19/21] omeprazole 20 mg PO DAILY 11/22/21 [History Last Taken 11/18/21] potassium chloride 20 meq PO DAILY 11/22/21 [History Last Taken 11/18/21] hjvynqjaavek-djhrueiof-ummiwyw 5 ml PO Q6H PRN 11/22/21 [History Last Taken 11/22/21 08:30] Allergy/AdvReac Type Severity Reaction Status Date / Time bee venom protein (honey bee) Allergy Hives Verified 11/20/21 12:28 Penicillins [PCN] Allergy Swelling Verified 11/20/21 12:28 Family History (Updated 11/22/21 @ 14:[address] Pedro Brasher DO) Other Cancer Surgical History Hx of foot surgery Social History (Updated 11/22/21 @ 14:[address] Pedro Brasher DO) Smoking Status: Former smoker quit date: 11/12/21 alcohol intake: former year quit: 2021 details: She drinks alcohol occasionally. She did not drink for the last 4 weeks. ROS ROS Narrative Unintentional weight loss. Weakness. All review of systems were negative except as mentioned above in the history of present illness and the other review of systems. Vital Signs Vital Signs Vital Signs: 11/22/21 11:50 11/22/21 11:53 11/22/21 12:42 Temperature 36.4 C L 36.4 C L Temperature Source Temporal Temporal Pulse Rate 104 H 82 Respiratory Rate 17 29 H Respiratory Effort Labored Respiratory Pattern Tachypnea Blood Pressure 118/87 H 110/75 Blood Pressure Mean 97 86 Pulse Ox 98 97 Oxygen Delivery Method Room Air Room Air 11/22/21 13:22 11/22/21 14:15 Temperature 36.8 C 36.9 C Temperature Source Temporal Oral Pulse Rate 88 78 Respiratory Rate 14 14 Respiratory Effort Respiratory Pattern Blood Pressure 145/91 H 156/82 H Blood Pressure Mean 109 106 Pulse Ox 95 96 Oxygen Delivery Method Room Air Room Air Weight Weight: 44.452 kg Body Mass Index (BMI) 17.3 Physical Exam Const alert Constitutional Narrative: Cachectic. General Appearance: cooperative HEENT normocephalic and head/scalp atraumatic Eyes PERRL and EOMs intact bilaterally Neck no lymphadenopathy Neck Narrative: No lymphadenopathy Resp normal respiratory effort, no retractions, no use of accessory muscles and clear to auscultation bilaterally Cardio regular rate, regular rhythm, S1 normal heart sound and S2 normal heart sound GI normal to inspection, nondistended, normoactive bowel sounds, soft to palpation, non-tender and non-distended Extremity normal to inspection Extremity Narrative: Muscle wasting Skin no rashes or lesions noted and no wounds Neuro Sensorium / Orientation: awake and alert Psych Mood & Affect: depressed Results Medical Records Data Attestation: I reviewed the patient's medical records Lab / Micro Data Result Diagrams: 11/22/21 12:20 11/22/21 12:20 Labs: Laboratory Results - last 24 hr 11/22/21 12:20: WBC 10.0, RBC 3.94 L, Hgb 13.0, Hct 39.9, MCV 101.3 H, MCH 33.0 H, MCHC 32.6, RDW Std Deviation 52.7 H, RDW Coeff of Ismael 14.2, Plt Count 274, MPV 11.4, Immature Gran % (Auto) 0.600, Neut % (Auto) 75.6 H, Lymph % (Auto) 13.3 L, [place] % (Auto) 9.1, Eos % (Auto) 0.8, Baso % (Auto) 0.6, Absolute Neuts (auto) 7.5, Absolute Lymphs (auto) 1.32, Nucleated RBC % 0 11/22/21 12:20: Sodium 141, Potassium 3.3 L, Chloride 106, Carbon Dioxide 29.0, Anion Gap 6, BUN 6 L, Creatinine 0.43 L, Estim Creat Clear Calc 38.83, Est GFR (MDRD) Af Amer 189, Est GFR (MDRD) Non-Af 156, BUN/Creatinine Ratio 14.0, Glucose 98, Calcium 9.0, Total Bilirubin 0.90, AST 19, ALT 9 L, Alkaline Phosphatase 123 H, Total Protein 6.6, Albumin 2.4 L, Globulin 4.2, Albumin/Globulin Ratio 0.6 L 11/22/21 13:20: Urine Color Yellow, Urine Clarity Sl. Cloudy, Urine pH 6.0, Ur Specific [place] 1.020, Urine Protein 30 H, Urine Glucose (UA) Normal, Urine Ketones 50 H, Urine Occult Blood 10 H, Urine Nitrite Positive H, Urine Bilirubin 3 H, Urine Urobilinogen 8 H, Ur Leukocyte Esterase 500 H, Urine RBC 0-5 SEEN, Urine WBC 0 SEEN, Ur Squamous Epith Cells 0-5 SEEN, Urine Bacteria 0 SEEN, Urine Mucus 0 SEEN Assessment & Plan Assessment/Plan (1) Esophageal cancer: QUALIFIERS: Malignant neoplasm of esophagus location: upper third Qualified Code(s): C15.3 - Malignant neoplasm of upper third of esophagus (2) Failure to thrive: QUALIFIERS: Failure to thrive age range: in adult Qualified Code(s): R62.7 - Adult failure to thrive (3) Severe protein-calorie malnutrition: PLAN: 1. Suspected esophageal cancer Nearly circumferential ulcerative mass in the esophagus Biopsied on the but results are still pending Patient quit smoking and drinking when she was found to have an esophageal mass on the 7th of this month. 2. Failure to thrive Due to weight loss and inability to eat or drink adequately 3. Severe protein calorie malnutrition Due to inability to eat or drink adequately. 4. COVID-19 vaccinated 5. CODE STATUS: Patient wishes to be full code. 6. Anemia Previously was anemic back in February but currently hemoglobin is up. We will continue to monitor. Certainly no need for transfusion at this time. She does have macrocytic parameters so we will check labs accordingly. Plan: * Discussed with Dr. Stringer about esophageal stent. In that the patient's not eating or drinking that she would probably more likely benefit from a stent as well as a PEG tube. This was brought to the patient's attention and Dr. Stringer will further discuss with she and her about this. In the meantime, patient was coughing with just sipping so patient will be made n.p.o. and will receive IV fluids in the interim. If patient does get a PEG tube then will consult nutrition for further recommendations about what she will need. * PT OT evaluate and treat. Unclear patient require any therapy upon discharge. * VTE prophylaxis with SCDs. No chemical prophylaxis in light of the upcoming potential procedure but also patient does have an ulcerative mass which could be at risk for further bleeding. Charges/Coding Visit Charges Inpatient E&M: 85818 Init Hosp L3
[2021-11-22] MEDS: 0.9% Normal Saline 1,000 ML 150 ML IV ×2 (15:45→21:57)
--- NOTE | 2021-11-22 18:57 | CON.PCM.GI_ITS ---
HPI Consult Data Date of Consult: 11/22/21 HPI Narrative HPI Narrative: VEENA STEPHENSON, is a 66-year-old female with past medical history of smoking but no formal diagnosis of COPD/emphysema. She states she has been seen in the ER twice in the past 6 to 8 weeks secondary to shortness of breath with no obvious reason why. She states that she is to follow-up with her family doctor in the next few days to discuss further testing. Patient states she has been on Tessalon Perles as well as steroids and inhalers with minimal symptom improvement. Patient states that she feels like she will suddenly have difficulty breathing and gasp for air. She also reports has been having difficulty swallowing. She states that this evening she felt symptoms were more severe than they have been recently and presented to the ED secondary to this comes in for evaluation. CTA of the chest reveals no acute lung pathology but it does document an irregularly thickened esophagus concerning for possible malignancy. This finding does correlate with her difficulty swallowing as well as the intermittent gasping of air. She came in yesterday for endoscopic evaluation. She was discovered to have a esophageal mass in the proximal esophagus and into the mid esophagus. It was approximately 7 cm in length. 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 She comes in now with worsening cough and inability to eat anything. [facility] Medical History (Updated 11/22/21 @ 19:[address] Duran Friend, ) Alcohol use Ambulates with cane Anemia Chronic cough Difficulty chewing Difficulty swallowing Esophageal cancer Gastric reflux High cholesterol History of steroid therapy Hoarseness Hx of retinal detachment Hypertension Osteoarthritis Post-menopausal Shortness of breath on exertion Smoker Walker as ambulation aid Home Medications diazepam 5 mg PO TID PRN 11/22/21 [History Last Taken 11/19/21] omeprazole 20 mg PO DAILY 11/22/21 [History Last Taken 11/18/21] potassium chloride 20 meq PO DAILY 11/22/21 [History Last Taken 11/18/21] ldqyrzrtdsuy-uxmqmqltd-klkmuot 5 ml PO Q6H PRN 11/22/21 [History Last Taken 11/22/21 08:30] Allergy/AdvReac Type Severity Reaction Status Date / Time bee venom protein (honey bee) Allergy Hives Verified 11/20/21 12:28 Penicillins [PCN] Allergy Swelling Verified 11/20/21 12:28 Family History (Updated 11/22/21 @ 14:[address] Pedro Brasher DO) Other Cancer Surgical History Hx of foot surgery Social History (Updated 11/22/21 @ 14:[address] Pedro Brasher DO) Smoking Status: Former smoker quit date: 11/12/21 alcohol intake: former year quit: 2021 details: She drinks alcohol occasionally. She did not drink for the last 4 weeks. ROS Respiratory/Chest Respiratory/Chest: Reports productive cough Physical Exam Const alert General Appearance: cooperative Orientation / Consciousness: oriented to person HEENT hearing grossly normal bilaterally Head and Scalp: normal to inspection Face and Sinus: face symmetric Nose: external nose normal Mouth: oral and palatal mucosa normal Eyes conjunctivae normal General Eye: normal appearance of both eyes Neck full ROM General: normal visual inspection Lymph Lymphatic: no lymphadenopathy noted Chest inspection of chest normal and palpation of chest normal Chest: symmetrical chest wall rise Resp normal respiratory effort Effort and Inspection: able to speak in complete sentences Cardio regular rate GI non-distended Percussion: normal to percussion Rectal Exam: deferred Neuro Speech: speech normal Gait (Neuro): normal gait Lab / Micro Data Result Diagrams: 11/22/21 12:20 11/22/21 12:20 Labs: Laboratory Results - last 24 hr 11/22/21 12:20: WBC 10.0, RBC 3.94 L, Hgb 13.0, Hct 39.9, MCV 101.3 H, MCH 33.0 H, MCHC 32.6, RDW Std Deviation 52.7 H, RDW Coeff of Ismael 14.2, Plt Count 274, MPV 11.4, Immature Gran % (Auto) 0.600, Neut % (Auto) 75.6 H, Lymph % (Auto) 13.3 L, [place] % (Auto) 9.1, Eos % (Auto) 0.8, Baso % (Auto) 0.6, Absolute Neuts (auto) 7.5, Absolute Lymphs (auto) 1.32, Nucleated RBC % 0 11/22/21 12:20: Sodium 141, Potassium 3.3 L, Chloride 106, Carbon Dioxide 29.0, Anion Gap 6, BUN 6 L, Creatinine 0.43 L, Estim Creat Clear Calc 38.83, Est GFR (MDRD) Af Amer 189, Est GFR (MDRD) Non-Af 156, BUN/Creatinine Ratio 14.0, Glucose 98, Calcium 9.0, Total Bilirubin 0.90, AST 19, ALT 9 L, Alkaline Ph osphatase 123 H, Total Protein 6.6, Albumin 2.4 L, Globulin 4.2, Albumin/Globulin Ratio 0.6 L 11/22/21 13:20: Urine Color Yellow, Urine Clarity Sl. Cloudy, Urine pH 6.0, Ur Specific [place] 1.020, Urine Protein 30 H, Urine Glucose (UA) Normal, Urine Ketones 50 H, Urine Occult Blood 10 H, Urine Nitrite Positive H, Urine Bilirubin 3 H, Urine Urobilinogen 8 H, Ur Leukocyte Esterase 500 H, Urine RBC 0-5 SEEN, Urine WBC 0 SEEN, Ur Squamous Epith Cells 0-5 SEEN, Urine Bacteria 0 SEEN, Urine Mucus 0 SEEN Assessment & Plan Assessment/Plan (1) GI bleed: PLAN: GI bleed secondary to esophageal cancer. She is not bleeding at this time. She is high risk for recurrent GI bleeding. (2) Esophageal cancer: PLAN: She is awaiting consultation by oncology. She says that she does not want a stent or a PEG tube at this time she wants to see what oncology has to say regarding her prognosis before she isShe is awaiting consultation by oncology. She says that she does not want a stent or a PEG tube at this time she wants to see what oncology has to say regarding her prognosis before she Decides anything. Charges/Coding Visit Charges Inpatient E&M: 92475 Init Hosp L3
[2021-11-22] MEDS: Morphine 2 MG/ML Syringe IV (19:34)
[2021-11-22] MEDS: 0.9% Saline Lock 10 ML Syringe IV (19:35)
[2021-11-23] MEDS: 0.9% Normal Saline 1,000 ML 150 ML IV ×3 (03:58→23:10)
[2021-11-23 04:00] VITALS: BP 142/78; PULSE 83; RESP 20; TEMP 36.6; O2SAT 95
[2021-11-23 07:00] LABS: Anion Gap 8 (5-15); BUN 4 mg/dL (7-18); BUN/Creat Ratio 11.4 RATIO (10-20); Calcium,Total 8.2 mg/dL (8.5-10.1); Chloride 113 mmol/L (98-107); Creatinine, Serum 0.35 mg/dL (0.55-1.02); EST Glomerular Filtration Rate 198 mL/min (>60); Est Glom Filt Rate - Afr Amer 239 mL/min (>60); Estimated Creatinine Clearance 38.36 ml/min; Glucose 76 mg/dL (74-106); Magnesium 1.8 mg/dL (1.6-2.6); Potassium 3.1 mmol/L (3.5-5.1); Sodium Level 144 mmol/L (136-145); Thyroid Stim Hormone (TSH) 0.81 uIU/mL (0.358-3.74)
[2021-11-23 08:03] VITALS: BP 160/93; PULSE 69; RESP 16; TEMP 36.7; O2SAT 98
[2021-11-23 08:05] LABS: Vitamin B12 251 pg/mL (211-911)
[2021-11-23] MEDS: 0.9% Saline Lock 10 ML Syringe IV ×2 (08:25→23:13)
[2021-11-23] MEDS: Morphine 2 MG/ML Syringe IV ×2 (08:25→23:12)
--- NOTE | 2021-11-23 09:42 | PN.HOSP_ITS ---
Subjective Subjective Feels she is a mess. Cannot tolerate even ice chips as she cannot swallow it and begins coughing. Objective Data Objective Data Vital Signs: Vital Signs Temp Pulse Resp BP Pulse Ox 36.7 C 69 16 160/93 H 98 11/23/21 08:03 11/23/21 08:03 11/23/21 08:03 11/23/21 08:03 11/23/21 08:03 Oxygen Delivery Method Room Air Weight: 43.908 kg Body Mass Index (BMI) 17.1 Intake & Output: Intake and Output for Last 24 Hours 11/21/21 11/22/21 11/23/21 23:59 23:59 23:59 Intake Total 1929 902.5 / 902.5 Balance 1929 902.5 / 902.5 Lab / Micro Data Result Diagrams: 11/22/21 12:20 11/23/21 05:35 Labs: Laboratory Results - last 24 hr 11/22/21 12:20: WBC 10.0, RBC 3.94 L, Hgb 13.0, Hct 39.9, MCV 101.3 H, MCH 33.0 H, MCHC 32.6, RDW Std Deviation 52.7 H, RDW Coeff of Ismael 14.2, Plt Count 274, MPV 11.4, Immature Gran % (Auto) 0.600, Neut % (Auto) 75.6 H, Lymph % (Auto) 13.3 L, [place] % (Auto) 9.1, Eos % (Auto) 0.8, Baso % (Auto) 0.6, Absolute Neuts (auto) 7.5, Absolute Lymphs (auto) 1.32, Nucleated RBC % 0 11/22/21 12:20: Sodium 141, Potassium 3.3 L, Chloride 106, Carbon Dioxide 29.0, Anion Gap 6, BUN 6 L, Creatinine 0.43 L, Estim Creat Clear Calc 38.83, Est GFR (MDRD) Af Amer 189, Est GFR (MDRD) Non-Af 156, BUN/Creatinine Ratio 14.0, Glucose 98, Calcium 9.0, Total Bilirubin 0.90, AST 19, ALT 9 L, Alkaline Phosphatase 123 H, Total Protein 6.6, Albumin 2.4 L, Globulin 4.2, Albumin/Globulin Ratio 0.6 L 11/22/21 13:20: Urine Color Yellow, Urine Clarity Sl. Cloudy, Urine pH 6.0, Ur Specific [place] 1.020, Urine Protein 30 H, Urine Glucose (UA) Normal, Urine Ketones 50 H, Urine Occult Blood 10 H, Urine Nitrite Positive H, Urine Bilirubin 3 H, Urine Urobilinogen 8 H, Ur Leukocyte Esterase 500 H, Urine RBC 0-5 SEEN, Urine WBC 0 SEEN, Ur Squamous Epith Cells 0-5 SEEN, Urine Bacteria 0 SEEN, Urine Mucus 0 SEEN 11/23/21 05:35: Sodium 144, Potassium 3.1 L, Chloride 113 H, Carbon Dioxide 23.0, Anion Gap 8, BUN 4 L, Creatinine 0.35 L, Estim Creat Clear Calc 38.36, Est GFR (MDRD) Af Amer 239, Est GFR (MDRD) Non-Af 198, BUN/Creatinine Ratio 11.4, Glucose 76, Calcium 8.2 L, Magnesium 1.8, Folate 4.90, TSH 0.81 11/23/21 05:35: Vitamin B12 251 Physical Exam Const alert Constitutional Narrative: cachectic. Eyes PERRL Resp normal respiratory effort, no retractions, no use of accessory muscles and clear to auscultation bilaterally Cardio regular rate, regular rhythm, S1 normal heart sound and S2 normal heart sound GI normal to inspection, nondistended, normoactive bowel sounds, soft to palpation, non-tender and non-distended Extremity normal to inspection and full ROM Neuro Sensorium / Orientation: awake and alert Assessment & Plan Assessment/Plan (1) Esophageal cancer: QUALIFIERS: Malignant neoplasm of esophagus location: upper third Qualified Code(s): C15.3 - Malignant neoplasm of upper third of esophagus (2) Failure to thrive: QUALIFIERS: Failure to thrive age range: in adult Qualified Code(s): R62.7 - Adult failure to thrive (3) Severe protein-calorie malnutrition: PLAN: 1. Suspected esophageal cancer Nearly circumferential ulcerative mass in the esophagus Biopsied on the but results are still pending Patient quit smoking and drinking when she was found to have an esophageal mass on the 7th of this month. 2. Failure to thrive Due to weight loss and inability to eat or drink adequately 3. Severe protein calorie malnutrition Due to inability to eat or drink adequately. 4. COVID-19 vaccinated 5. CODE STATUS: Patient wishes to be full code. 6. Anemia Previously was anemic back in February but currently hemoglobin is up. We will continue to monitor. Certainly no need for transfusion at this time. She does have macrocytic parameters so we will check labs accordingly. Plan: * 11/22: Discussed with Dr. Stringer about esophageal stent. In that the patient's not eating or drinking that she would probably more likely benefit from a mai nt as well as a PEG tube. This was brought to the patient's attention and Dr. Stringer will further discuss with she and her about this. In the meantime, patient was coughing with just sipping so patient will be made n.p.o. and will receive IV fluids in the interim. If patient does get a PEG tube then will consult nutrition for further recommendations about what she will need. * 11/23: Patient declined PEG tube and stent at this time. States that she wishes to talk to oncology as well as her family. I spoke with Dr. Zavala about his situation. Biopsy is still pending and there is no imminent plans for any chemo or radiation therapy at this time. Patient would need further work-up, including up PET scan. Here someone from the office will see and talk with the patient today but no initiation of any treatment whatsoever until the biopsy has been resulted. * PT OT evaluate and treat. Unclear patient require any therapy upon discharge. * VTE prophylaxis with SCDs. No chemical prophylaxis in light of the upcoming potential procedure but also patient does have an ulcerative mass which could be at risk for further bleeding. Greater than 35 minutes of which greater than for present time was discussed with the patient at bedside about her situation, oncology and the need for biopsy. And spending time discussing with Dr. Zavala. Charges/Coding Visit Charges Inpatient E&M: 08809 Subs Hosp L3
--- NOTE | 2021-11-23 10:15 | RAO.OV_ITS ---
Intake Vital Signs 11/22/21 11:50 11/22/21 11:53 11/22/21 13:22 11/22/21 14:15 11/22/21 14:51 11/22/21 15:20 11/22/21 15:20 11/22/21 15:48 11/22/21 21:55 11/23/21 04:00 11/23/21 08:03 Height 5 ft 3 in 5 ft 3 in Weight: 98 lb 96 lb 8.999 oz 96 lb 12.8 oz BMI 17.3 17.1 BP 118/87 H 110/75 145/91 H 156/82 H 156/56 H 142/80 H 146/64 H 142/78 H 160/93 H Position Sitting Semi-Fowlers Semi-Fowlers Semi-Fowlers Respiration 17 29 H 14 14 12 16 18 20 H 16 Pulse 104 H 82 88 78 76 74 82 83 69 Temp 97.5 F L 97.5 F L 98.3 F 98.4 F 98.4 F 98.8 F 98.9 F 97.8 F 98.0 F Pulse Oximetry (%) 98 97 95 96 99 95 97 95 98 Intake Visit Reasons: DEHYDRATION Chief Complaint: Anemia Allergies bee venom protein (honey bee) Allergy (Verified 11/20/21 12:28) Hives Penicillins [PCN] Allergy (Verified 11/20/21 12:28) Swelling Medications diazepam 5 mg PO TID PRN 11/22/21 [History Confirmed 11/22/21] omeprazole 20 mg PO DAILY 11/22/21 [History Confirmed 11/22/21] potassium chloride 20 meq PO DAILY 11/22/21 [History Confirmed 11/22/21] ptdegwhdrsjk-asvpnxbdh-qdadfgz 5 ml PO Q6H PRN 11/22/21 [History Confirmed 11/22/21] Home Medications Acetaminophen (Acetaminophen 650 Mg Suppository) 650 mg RC Q4H PRN PRN PRN Reason: Pain Score 1-10/Temp > 100.7 F Diazepam (Diazepam 5 Mg Tablet) 5 mg PO TID PRN PRN Reason: SPASMS Guaifenesin/Codeine Phosphate (Guaifenesin/Codeine 5 Ml Udc) 5 ml PO Q4H PRN PRN Reason: COUGH Sodium Chloride () 1,000 mls @ 150 mls/hr IV .Q6H40M MARY Last Admin: 11/23/21 03:58 Dose: 150 mls/hr Documented by: Potassium Chloride () 10 meq in 100 mls @ 100 mls/hr IV BOLUS Q1H MARY Stop: 11/23/21 14:29 Morphine Sulfate (Morphine 2 Mg/Ml Syringe) 2 mg IV Q3H PRN PRN PRN Reason: Pain Score 6-10 Last Admin: 11/23/21 08:25 Dose: 2 mg Documented by: Ondansetron HCl (Ondansetron 4 Mg/2 Ml Vial) 4 mg IV Q8H PRN PRN PRN Reason: NAUSEA/VOMITING Sodium Chloride (0.9% Saline Lock 10 Ml Syringe) 10 - 40 ml IV UD PRN PRN Reason: SALINE FLUSH Last Admin: 11/23/21 08:25 Dose: 10 ml Documented by: Discontinued Medications Sodium Chloride () 1,000 mls @ 1,000 mls/hr IV .Q1H ONE Stop: 11/22/21 13:03 Last Infusion: 11/22/21 14:43 Dose: Infused Documented by: Non-Formulary Medication (Psiqzopqmatg-Xrnslvvgv-Zqywrjt) 5 ml PO Q6H PRN PRN Reason: Cough PFSH PFSH Medical History (Updated 11/23/21 @ 10:[address] Richard Umana, DO) Alcohol use Ambulates with cane Anemia Chronic cough Difficulty chewing Difficulty swallowing Esophageal cancer Gastric reflux High cholesterol History of steroid therapy Hoarseness Hx of retinal detachment Hypertension Osteoarthritis Post-menopausal Shortness of breath on exertion Smoker Walker as ambulation aid Home Medications diazepam 5 mg PO TID PRN 11/22/21 [History Last Taken 11/19/21] omeprazole 20 mg PO DAILY 11/22/21 [History Last Taken 11/18/21] potassium chloride 20 meq PO DAILY 11/22/21 [History Last Taken 11/18/21] qwtwtunujhsi-umqtwslmw-crumoai 5 ml PO Q6H PRN 11/22/21 [History Last Taken 11/22/21 08:30] Allergy/AdvReac Type Severity Reaction Status Date / Time bee venom protein (honey bee) Allergy Hives Verified 11/20/21 12:28 Penicillins [PCN] Allergy Swelling Verified 11/20/21 12:28 Family History (Updated 11/22/21 @ 14:[address] Pedro Brasher DO) Other Cancer Surgical History Hx of foot surgery Social History (Updated 11/22/21 @ 14:[address] Pedro Brasher DO) Smoking Status: Former smoker quit date: 11/12/21 alcohol intake: former year quit: 2021 details: She drinks alcohol occasionally. She did not drink for the last 4 weeks. Diagnosis: Bev Jeffers is a 66-year-old female diagnosed with locally advanced pro ximal to mid esophageal squamous cell carcinoma status post CT chest (11/12/2021), EGD with biopsy (11/20/2021), and admission to the hospital due to dysphagia (11/22/2021). History of Present Illness: February 16, 2021: Patient was evaluated for concern about upper GI bleed. EGD was performed. This demonstrated mild erythematous mucosa without bleeding found in the gastric antrum, biopsies were taken. No other abnormalities were appreciated. Pathology demonstrated chronic gastritis. February 17, 2021: CT chest/abdomen/pelvis with contrast was performed due to having anemia and weight loss. This demonstrated thickening of the wall of the cecum and the ascending colon. No other abnormalities are appreciated. November 12, 2021: CTA chest was performed due to having increasing shortness of breath. This demonstrated severe irregular thickening of the wall the mid esophagus extending into the subcarinal region concerning for esophageal malignancy. No evidence of pulmonary embolus is appreciated. November 20, 2021: Patient completed EGD. This demonstrated a large ulcerating mass with bleeding and stigmata of recent bleeding found in the proximal esophagus and into the mid esophagus approximately 20 cm from the incisors. The mass was partially obstructing and partially circumferential involving about two thirds of the lumen circumference. Biopsies were taken. There were 2 malignant appearing intrinsic stenosis found at 20 and 28 cm from the incisors and these were graded as moderately severe circumferential scarring or stenosis with the narrowest stenosis measuring about 6 cm in length. Grade 1 varices were found in the lower third of the esophagus and were 5 mm in diameter. There is moderate portal hypertensive gastropathy found in the entire examined stomach. Duodenum was normal. Pathology was consistent with invasive squamous cell carcinoma. November 22, 2021: Patient presented to the emergency room with inability to eat due to swallowing difficulty and projectile vomiting. Radiation Treatment History: No prior history of radiation therapy. No pacemaker. No diagnosis of radiosensitizing comorbidity. Interval History: Patient was seen as an inpatient consult. She reports dysphagia for several months which has progressively worsening and now she has a great deal of trouble swallowing liquids or solids. She reports not being able to really swallow any solids. She can swallow some liquids but does cough frequently when she swallows. She does have mid to upper back pain which has been present for a few months and is rated as about a 7/10, she is not taking any pain medication for this. She otherwise denies pain. She has lost approximately 40 pounds over the last year. She does report a great deal of fatigue. She has had persistent cough for the last few months. About 3 weeks ago she did have some blood with coughing but has not had any since. She denies having black or red stools. Prior to coming to the hospital she was living at home with her and was able to care for herself with minimal difficulty. Review of Systems: A 12-point review of systems was completed and was negative except for what is noted in the HPI/Interval History and by the nurse. Physical Exam: Weight: 96 lbs ECO [place] SCORE: 50% CONSTITUTIONAL: Well-developed, thin and frail, and in no apparent distress. NECK: Supple, no thyromegaly, and non-tender. Trachea midline. No cervical or supraclavicular adenopathy noted. CARDIAC: Regular rate and rhythm. Normal S1, S2. No murmurs, rubs, or gallops. PULMONARY/CHEST: Lungs are clear to auscultation and percussion bilaterally. Bilateral rhonchi/congestion noted. Intermittent coughing. No increased work of breathing, on RA. ABDOMINAL: Abdomen soft, non-tender, non-distended. No hepatomegaly. Normoactive bowel sounds in all four quadrants. No guarding, rebound. BACK: Straight and aligned. No CVA tenderness. Axial skeleton with tenderness at midline in upper thoracic spine, otherwise non-tender to percussion. EXTREMITIES: Full range of motion in all four extremities. No evidence of edema. NEUROLOGICAL EXAM: Alert and oriented x 3. Answers questions and follows commands appropriately. Cranial nerves II through XII are grossly intact. No focal neurological deficit. Speech is fluent. Muscle strength is 5/5 in all muscle groups. Gait and posture without abnormality. PSYCHIATRIC: Appropriate mood and affect for the clinical situation. Imaging: As per HPI Laboratory Data: 11/22/2021: CBC and CMP unremarkable. Albumin 2.4 Assessment & Plan Assessment/Plan (1) Squamous cell esophageal cancer: PLAN: Assessment/Plan: Bev Jeffers is a 66-year-old female diagnosed with locally advanced proximal to mid esophageal squamous cell carcinoma status post CT chest (11/12/2021), EGD with biopsy (11/20/2021), and admission to the hospital due to dysphagia (11/22/2021). Patient was seen and examined in her hospital room. She does have significant symptoms associated with the squamous of carcinoma of the esophagus including severe dysphagia leading to extreme fatigue and weight loss, history of bleeding, and persistent coughing and congestion which could be suggestive of aspiration or T-E fistula. Currently she has a fairly poor performance status due to deconditioning and nutritional deficiency. I reviewed the imaging studies including CTA chest which demonstrates a very large proximal to mid esophageal tumor, no clear evidence of adenopathy or metastasis is noted. I also reviewed the EGD which demonstrated a partially obstructing mass in the proximal to mid esophagus, pathology is consistent with squamous cell carcinoma. I reviewed these findings with the patient and discussed the implications. No staging has been completed. I have reviewed the natural history and potential treatment options for squamous cell carcinoma of the esophagus. We reviewed both definitive and palliative treatment options in terms of radiation therapy. I discussed that typically chemoradiation followed by surgery or potentially chemoradiation followed by a nonsurgical approach is used for squamous cell carcinoma of the esophagus that is not metastatic and that potentially palliative radiation therapy to the esophagus to improve dysphagia is a good option if she has stage IV disease or is not a candidate for definitive treatment. For appropriate treatment I would recommend complete staging and while inpatient that would likely include CT chest/abdomen/pelvis with contrast and bone scan. We reviewed options of completing esophageal stent and/or PEG tube to improve nutritional status. I discussed the likely timeframe for response to palliative radiation therapy, it is unknown when dysphagia will improve but usually would take at least a couple weeks before noticeable improvement is appreciated. She would likely need other means for maintaining nutrition while completing staging and determining the appropriate approach. Due to concern for TE fistula I recommended barium esophagram and we will plan discussed with GI regarding the findings of the scope. If no fistula is discovered then likely a swallow study and speech therapy evaluation is warranted due to the high concern for aspiration. Once medical oncology is able to evaluate the patient and we can complete staging studies we will plan to come up with a more definitive treatment plan but at this time would recommend stent or PEG tube to stabilize nutritional status, the patient was in agreement with this and plans to discuss further with GI and the hospitalist team. Plan will be to discuss further treatment management following staging. Thank you for allowing me to participate in the management and care of your patient. If I may answer any questions in the interim, please do not hesitate to contact me at any time. Richard Umana DO, MS [employer], Department of Radiation Oncology [facility] Coding Level of Care Code Off vis,new,level 5 Diagnoses Squamous cell esophageal cancer C15.9
--- NOTE | 2021-11-23 10:28 | NM_ITS ---
CLINICAL: Female, 66 years old. Esophageal cancer WHOLE BODY NUCLEAR BONE SCAN TECHNIQUE: Following the IV administration of 28 mCi of Tc MDP, whole body bone imaging was performed with a gamma camera following a three hour delay. FINDINGS: Focal increased uptake is seen along the posterior left 11th and 10th ribs as well as the posterior right 11th rib. These most likely are secondary to trauma. No definite metastasis are seen. NM/Bone Scan Whole Body IMPRESSION: Focal uptake in the posterior aspect of the left 11th and 10th ribs as well as in the right 11th rib suggestive of a traumatic injury rather than metastatic deposits. Electronically Signed: Allen Leigh MD at 8:28 EST ,
--- NOTE | 2021-11-23 10:32 | CT_ITS ---
STUDY: CT CHEST, ABDOMEN T PELVIS WITH CONTRAST REASON FOR EXAM: Female, 66 years old. Esophageal mass, suspected malignancy RADIATION DOSAGE (If Supplied By Facility): CTDIvol = ( 10.90 ) mGy, DLP = ( 616.12 ) mGycm TECHNIQUE: Transaxial imaging was performed following intravenous administration of IV 100mL Isovue-300. Individualized dose optimization techniques were used for this CT. COMPARISON: No relevant priors. FINDINGS: CHEST Hyperinflation. There is a 2.4 cm x 1.4 cm pleural-based mass in the posterior medial aspect of the right upper lobe. Findings suggestive of scarring with bronchiectasis in both lower lobes slightly more prominent on the right side. There is no demonstrated pleural abnormality. There are calcifications of the coronary arteries. There is a 3.5 cm x 4.7 cm irregular soft tissue mass in the proximal midportion of the esophagus. This extends into its distal portion. 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 Normal hilar regions. Normal unenhanced pulmonary arteries. Normal aorta arch and descending thoracic aorta. There are multi-level degenerative changes of the thoracic spine. Diffuse fatty infiltration of the liver. ABDOMEN There is decreased attenuation of the liver consistent with steatosis. Normal gallbladder and extrahepatic biliary system. Normal spleen. Normal pancreas. Normal bilateral adrenal glands. Normal right kidney. Normal left kidney. Normal visualized stomach. Normal small intestine. Normal colon. The appendix is visualized and appears normal. There is scattered atherosclerotic calcification of the abdominal aorta, without a demonstrated aneurysm. Normal inferior vena cava. Normal retroperitoneum. PELVIS Normal urinary bladder. Small amount of free fluid is seen in the pelvis. Bilateral tubal ligation. Normal visualized small intestine. Normal visualized colon. T 2.2 cm cyst in the right ovary. Normal visualized pelvic arteries. Normal abdominal wall. There are mild degenerative changes of the visualized lumbar spine. CT/CT Chest, Abd, Pel w/Contrast IMPRESSION: 2.4 cm x 1.4 cm pleural-based mass in the posterior medial segment of the right upper lobe. A neoplastic process should BE ruled out. There is a 3.5 cm x 4.7 cm irregular soft tissue mass in the proximal midportion of the esophagus. 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 Diffuse fatty infiltration of the liver. Small amount of free fluid in the pelvis. Electronically Signed: Allen Leigh MD at 12:06 EST ,
[2021-11-23] MEDS: Potassium Chloride 10mEq/100mL 10 MEQ/100 ML IV.SOLN. 100 MEQ IV BOLUS ×2 (11:24→13:26)
--- NOTE | 2021-11-23 12:36 | CASEMGMT ---
RN CM Assessment: Face to Face with pt for initial transition planning/care coordination assessment. RN CM introduced self and role at [facility], pt voices understanding and consents to assessment. Pt is A/O x4 and answers all questions appropriately at this time. Pt sitting up in bed ready to be taken by [facility]. Pt on RA and coughing throughout assessment. Care providers, pharmacy, and demographics verified/updated. Admitting Dx: dehydration PCP:Lan Specialists:Pt denies having any specialists other than an eye doctor. Preferred Pharmacy: [facility] Retail Insurance: Prescription Benefit: yes LW/HPOA: Pt denies having a LW/DPOA and denies need for info regarding AD. LNOK: Rishi Jeffers, Living Arrangements: Pt lives with in a two story house with 1 step to enter. Pt reports she was I in ADL's prior to hospitalization but has become weak. Pt denies concerns at home. Transportation: Pt drives self and denies concerns with transportation typically but has not been driving recently d/t weakness. DME/HHC/SNF: Pt has a cane and walker at home. Pt denies hx of HHC or SNF stays. Unable to discuss dc plan at this time as pt coughing and getting ready to be taken off of the floor. Pt aware RN CM will follow. Pt states no further concerns/needs. Advised pt to ask CM if any further question/concerns/needs arise, voices understanding. Pt Goal: TBD Plan: TBD
--- NOTE | 2021-11-23 12:57 | CASEMGMT ---
Addendum entered by Isamar Diamond 11/23/21 14:29: Social Work SW met with pt and introduced self and role of SW. Pt sitting in bed, alert and oriented and agreeable to conversation. Pt with new diagnosis of esophageal cancer and met with oncologist this morning. SW spoke with pt regarding feelings surrounding diagnosis, support system and coping skills. Emotional support provided. Pt does have a and two children who are supportive and also reports she has friends she can count on. Pt with significant coughing during conversation. SW and pt agreed to end session to allow pt to rest. SW will remain available should further needs arise. JOSÉ Kelly Original Note: Social Work SW attempted to meet with pt to offer support regarding new Cancer diagnosis. Pt currently out of room for procedure. SW will check back as time allows. JOSÉ Kelly
[2021-11-23] MEDS: Potassium Chloride 10mEq/100mL 10 MEQ/100 ML IV.SOLN. 90 MEQ IV BOLUS ×2 (14:52→16:32)
[2021-11-23 14:55] VITALS: BP 168/81; PULSE 74; RESP 18; TEMP 36.7; O2SAT 99
[2021-11-23 23:00] VITALS: BP 158/83; PULSE 73; RESP 18; TEMP 36.7; O2SAT 98
[2021-11-24 02:45] VITALS: TEMP 37.3
[2021-11-24 03:05] VITALS: BP 149/89; PULSE 84; RESP 20; TEMP 36.8; O2SAT 94
[2021-11-24] MEDS: 0.9% Normal Saline 1,000 ML 150 ML IV ×3 (05:19→18:13)
[2021-11-24] MEDS: guaiFENesin/Codeine 5 ML UDC PO (05:21)
[2021-11-24] MEDS: Morphine 2 MG/ML Syringe IV ×4 (05:36→20:33)
[2021-11-24] MEDS: 0.9% Saline Lock 10 ML Syringe IV ×2 (05:37→12:07)
[2021-11-24 06:51] LABS: Anion Gap 10 (5-15); BUN 2 mg/dL (7-18); BUN/Creat Ratio 7.5 RATIO (10-20); Calcium,Total 8.2 mg/dL (8.5-10.1); Chloride 108 mmol/L (98-107); Creatinine, Serum 0.27 mg/dL (0.55-1.02); EST Glomerular Filtration Rate 271 mL/min (>60); Est Glom Filt Rate - Afr Amer 328 mL/min (>60); Estimated Creatinine Clearance 39.75 ml/min; Glucose 70 mg/dL (74-106); Potassium 3.4 mmol/L (3.5-5.1); Sodium Level 140 mmol/L (136-145)
[2021-11-24 08:04] VITALS: BP 133/74; PULSE 87; RESP 18; TEMP 37.2; O2SAT 92
[2021-11-24 12:06] VITALS: BP 164/97; PULSE 83; RESP 24; TEMP 37; O2SAT 96
--- NOTE | 2021-11-24 12:12 | PN.HOSP_ITS ---
Subjective Subjective Now deciding to proceed with PEG tube Objective Data Objective Data Vital Signs: Vital Signs Temp Pulse Resp BP Pulse Ox 37.0 C 83 24 H 164/97 H 96 11/24/21 12:06 11/24/21 12:06 11/24/21 12:06 11/24/21 12:06 11/24/21 12:06 Oxygen Delivery Method Room Air Weight: 45.5 kg Body Mass Index (BMI) 17.1 Intake & Output: Intake and Output for Last 24 Hours 11/22/21 11/23/21 11/24/21 23:59 23:59 23:59 Intake Total 1929 3302.50 / 3302.50 1911.5 / 1911.5 Balance 1929 3302.50 / 3302.50 Medical Nutrition Assessment Dietitian: Malnutrition Criteria Met Start: 11/23/21 11:33 Freq: Status: Active Protocol: Document 11/23/21 11:33 SLA (Rec: 11/23/21 11:33 SLA [id number]) Nutrition Malnutrition Evidence of Malnutrition Exists Yes Evidenced By Suboptimal Energy Intake ( Severe),Weight Loss (Severe) Clinical Problem Chronic Disease or Condition Related Malnutrition Etiology related to new dx of esophageal cancer and pt complaints of difficulty swallowing and chronic coughing making it difficulty to consume adequate nutrition to meet est nutritional needs Signs/Symptoms as evidenced by <50%+ po intake and 25.6% wt loss x 1 yr. Pt with obvious fat/ muscle loss in temporal/ clavicle, acromion process/ arms and upper body. Status Active Problem Recommendation Dietitian Recommendations/Changes As medically able, rec HALEY to liberal Regular w/ po supplements - consistency per LOCATION MANAGER. If NPO to continue and if in accordance w/ pt/family wishes , rec nutrition support to help prevent further decline in pt nutritional status - consult RD/LD for rec prn. Pt likely to have refeeding syndrome - monitor electrolytes daily Lab / Micro Data Result Diagrams: 11/22/21 12:20 11/24/21 05:00 Labs: Laboratory Results - last 24 hr 11/24/21 05:00: Sodium 140, Potassium 3.4 L, Chloride 108 H, Carbon Dioxide 22.0, Anion Gap 10, BUN 2 L, Creatinine 0.27 L, Estim Creat Clear Calc 39.75, Est GFR (MDRD) Af Amer 328, Est GFR (MDRD) Non-Af 271, BUN/Creatinine Ratio 7.5 L, Glucose 70 L, Calcium 8.2 L Physical Exam Const alert and no apparent distress Constitutional Narrative: Cachectic. Afebrile Resp normal respiratory effort, no retractions, no use of accessory muscles and clear to auscultation bilaterally Cardio regular rate, regular rhythm, S1 normal heart sound and S2 normal heart sound GI normal to inspection, nondistended, normoactive bowel sounds, soft to palpation, non-tender and non-distended Extremity normal to inspection Assessment & Plan Assessment/Plan (1) Esophageal cancer: QUALIFIERS: Malignant neoplasm of esophagus location: upper third Qualified Code(s): C15.3 - Malignant neoplasm of upper third of esophagus (2) Failure to thrive: QUALIFIERS: Failure to thrive age range: in adult Qualified Code(s): R62.7 - Adult failure to thrive (3) Severe protein-calorie malnutrition: (4) Tracheo-esophageal fistula: PLAN: 1. Squamous cell esophageal cancer Nearly circumferential ulcerative mass in the esophagus Patient quit smoking and drinking when she was found to have an esophageal mass on the 7th of this month. Plan: * We will need to have additional staging with a PET scan as outpatient * Follow-up results of bone scan 2. Failure to thrive Due to weight loss and inability to eat or drink adequately 3. Severe protein calorie malnutrition Due to inability to eat or drink adequately. 4. COVID-19 vaccinated 5. CODE STATUS: Patient wishes to be full code. 6. Anemia Previously was anemic back in February but currently hemoglobin is up. We will continue to monitor. Certainly no need for transfusion at this time. She does have macrocytic parameters so we will check labs accordingly. 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 As radiation may not be feasible given this. Plan: * 11/22: Discussed with Dr. Stringer about esophageal stent. In that the patient's not eating or drinking that she would probably more likely benefit from a stent as well as a PEG tube. This was brought to the patient's attention and Dr. Stringer will further discuss with she and her about this. In the meantime, patient was coughing with just sipping so patient will be made n.p.o. and will receive IV fluids in the interim. If patient does get a PEG tube then will consult nutrition for further recommendations about what she will need. * 11/23: Patient declined PEG tube and stent at this time. States that she wishes to talk to oncology as well as her family. I spoke with Dr. Zavala about his situation. Biopsy is still pending and there is no imminent plans for any chemo or radiation therapy at this time. Patient would need further work-up, including up PET scan. Here someone from the office will see and talk with the patient today but no initiation of any treatment whatsoever until the biopsy has been resulted. * 11/24: Patient now in agreement to PEG tube. Notify Dr. Stringer. Continue NPO. * PT OT evaluate and treat. Unclear patient require any therapy upon discharge. * VTE prophylaxis with SCDs. No chemical prophylaxis in light of the upcoming potential procedure but also patient does have an ulcerative mass which could be at risk for further bleeding. Charges/Coding Visit Charges Inpatient E&M: 99180 Subs Hosp L2
[2021-11-24 18:06] VITALS: BP 149/86; PULSE 85; RESP 24; TEMP 37.2; O2SAT 96
--- NOTE | 2021-11-24 19:58 | PCM.PROGNOTE ---
Subjective Subjective Patient states that she wants to have a PEG tube. She still continues to have a cough that is likely secondary to a tracheoesophageal fistula. She continues to be afebrile. Objective Data Objective Data Vital Signs: Vital Signs Temp Pulse Resp BP Pulse Ox 99.0 F 85 24 H 149/86 H 96 11/24/21 18:06 11/24/21 18:06 11/24/21 18:06 11/24/21 18:06 11/24/21 18:06 Oxygen Delivery Method Room Air Weight: 100 lb 4.965 oz Body Mass Index (BMI) 17.1 Intake & Output: Intake and Output for Last 24 Hours 11/22/21 11/23/21 11/24/21 23:59 23:59 23:59 Intake Total 1929 3302.50 / 3302.50 2857.5 / 2857.5 Balance 1929 3302.50 / 3302.50 2857.5 / 2857.5 Medical Nutrition Assessment Dietitian: Malnutrition Criteria Met Start: 11/23/21 11:33 Freq: Status: Active Protocol: Document 11/23/21 11:33 SLA (Rec: 11/23/21 11:33 SLA [id number]) Nutrition Malnutrition Evidence of Malnutrition Exists Yes Evidenced By Suboptimal Energy Intake ( Severe),Weight Loss (Severe) Clinical Problem Chronic Disease or Condition Related Malnutrition Etiology related to new dx of esophageal cancer and pt complaints of difficulty swallowing and chronic coughing making it difficulty to consume adequate nutrition to meet est nutritional needs Signs/Symptoms as evidenced by <50%+ po intake and 25.6% wt loss x 1 yr. Pt with obvious fat/ muscle loss in temporal/ clavicle, acromion process/ arms and upper body. Status Active Problem Recommendation Dietitian Recommendations/Changes As medically able, rec HALEY to liberal Regular w/ po supplements - consistency per REPAIRING CALIBRATOR. If NPO to continue and if in accordance w/ pt/family wishes , rec nutrition support to help prevent further decline in pt nutritional status - consult RD/LD for rec prn. Pt likely to have refeeding syndrome - monitor electrolytes daily Lab / Micro Data Result Diagrams: 11/22/21 12:20 11/24/21 05:00 Labs: Laboratory Results - last 24 hr 11/24/21 05:00: Sodium 140, Potassium 3.4 L, Chloride 108 H, Carbon Dioxide 22.0, Anion Gap 10, BUN 2 L, Creatinine 0.27 L, Estim Creat Clear Calc 39.75, Est GFR (MDRD) Af Amer 328, Est GFR (MDRD) Non-Af 271, BUN/Creatinine Ratio 7.5 L, Glucose 70 L, Calcium 8.2 L Physical Exam Const alert General Appearance: cooperative Orientation / Consciousness: oriented to person HEENT hearing grossly normal bilaterally Head and Scalp: normal to inspection Face and Sinus: face symmetric Nose: external nose normal Mouth: oral and palatal mucosa normal Eyes conjunctivae normal General Eye: normal appearance of both eyes Neck full ROM General: normal visual inspection Lymph Lymphatic: no lymphadenopathy noted Chest inspection of chest normal and palpation of chest normal Chest: symmetrical chest wall rise Resp normal respiratory effort Effort and Inspection: able to speak in complete sentences Cardio regular rate GI non-distended Percussion: normal to percussion Rectal Exam: deferred Neuro Speech: speech normal Gait (Neuro): normal gait Assessment & Plan Assessment/Plan (1) Tracheo-esophageal fistula: PLAN: Patient will likely need an esophageal stent in the future. I would like to place the PEG tube as soon as possible to allow her to get some type of nutrition prior to her getting the PEG tube so it will be more successful as her tissue is very thin secondary to weight loss. (2) Squamous cell esophageal cancer: PLAN: She can have her radiation at any time. I would like to place the PEG tube and then placed esophageal stent later in the week if that is okay with radiation oncology. (3) Severe protein-calorie malnutrition: PLAN: Severe protein, nutrition secondary to inability to eat without aspiration along with a newly diagnosed esophageal cancer. Her BMI is down to 17. She needs better nutrition if she is going to undergo chemotherapy. (4) GI bleed: PLAN: GI bleed secondary to esophageal cancer. Her hemoglobin seems to be stable at this time.
[2021-11-24 22:14] VITALS: BP 152/85; PULSE 88; RESP 22; TEMP 37.1; O2SAT 95
[2021-11-25] VITALS (12 sets, daily range): BP systolic 113–172; BP diastolic 71–97; PULSE 76–115; RESP 16–36; TEMP 36.6–37.8; O2SAT 92–100; BMI 17.7
[2021-11-25] MEDS: 0.9% Normal Saline 1,000 ML 150 ML IV ×4 (00:57→20:33)
[2021-11-25] MEDS: Morphine 2 MG/ML Syringe IV ×4 (01:01→20:38)
--- NOTE | 2021-11-25 05:00 | EKG12_ITS ---
Test Reason : PRE-OP Blood Pressure : / mmHG Vent. Rate : 080 BPM Atrial Rate : 080 BPM P-R Int : 126 ms QRS Dur : 068 ms QT Int : 382 ms P-R-T Axes : 070 -05 037 degrees QTc Int : 440 ms Sinus rhythm Nonspecific ST and T wave abnormality Abnormal ECG Confirmed by NELY ARSHAD, COLBY ([id number]), commissioning editor LOUISA FLOREZ ([id number]) on 11/28/2021 12:57:12 PM Referred By: Carolann Zavala Confirmed By:COLBY MCKAY MD
--- NOTE | 2021-11-25 06:20 | NURSING ---
Pt uncomfortable with signing consent for PEG. Requested this nurse call since he is pt's POA. Attempted to call however he did not answer, left message.
[2021-11-25 07:16] LABS: ALB/GLOB Ratio 0.5 RATIO (0.9-2.4); AST(SGOT) 16 U/L (15-37); Alanine Aminotransfer ALT/SGPT 7 U/L (13-56); Albumin, Serum 1.9 g/dL (3.2-5.0); Alkaline Phosphatase 86 U/L (45-117); Anion Gap 11 (5-15); BUN 1 mg/dL (7-18); BUN/Creat Ratio 3.3 RATIO (10-20); Calcium,Total 7.9 mg/dL (8.5-10.1); Chloride 108 mmol/L (98-107); EST Glomerular Filtration Rate 234 mL/min (>60); Est Glom Filt Rate - Afr Amer 283 mL/min (>60); Estimated Creatinine Clearance 39.75 ml/min; Globulin 3.6 g/dL (2.2-4.2); Glucose 81 mg/dL (74-106); Protein, Total 5.5 g/dL (6.4-8.2); Sodium Level 141 mmol/L (136-145)
[2021-11-25] MEDS: 0.9% Saline Lock 10 ML Syringe IV ×3 (08:35→20:42)
--- NOTE | 2021-11-25 11:19 | PN.HOSP_ITS ---
Subjective Subjective Still coughing. Objective Data Objective Data Vital Signs: Vital Signs Temp Pulse Resp BP Pulse Ox 36.6 C 89 18 172/96 H 100 11/25/21 08:13 11/25/21 08:13 11/25/21 08:13 11/25/21 08:13 11/25/21 08:13 Oxygen Delivery Method Room Air Weight: 45.5 kg Body Mass Index (BMI) 17.7 Intake & Output: Intake and Output for Last 24 Hours 11/23/21 11/24/21 11/25/21 23:59 23:59 23:59 Intake Total 3302.50 / 3302.50 2857.5 / 2857.5 1917.5 / 1916.5 Balance 3302.50 / 3302.50 2857.5 / 2857.5 1916. / 1916.5 Medical Nutrition Assessment Dietitian: Malnutrition Criteria Met Start: 11/23/21 11:33 Freq: Status: Active Protocol: Document 11/23/21 11:33 ANITA (Rec: 11/23/21 11:33 SLA [id number]) Nutrition Malnutrition Evidence of Malnutrition Exists Yes Evidenced By Suboptimal Energy Intake ( Severe),Weight Loss (Severe) Clinical Problem Chronic Disease or Condition Related Malnutrition Etiology related to new dx of esophageal cancer and pt complaints of difficulty swallowing and chronic coughing making it difficulty to consume adequate nutrition to meet est nutritional needs Signs/Symptoms as evidenced by <50%+ po intake and 25.6% wt loss x 1 yr. Pt with obvious fat/ muscle loss in temporal/ clavicle, acromion process/ arms and upper body. Status Active Problem Recommendation Dietitian Recommendations/Changes As medically able, rec HALEY to liberal Regular w/ po supplements - consistency per STEAM ROLLER OPERATOR. If NPO to continue and if in accordance w/ pt/family wishes , rec nutrition support to help prevent further decline in pt nutritional status - consult RD/LD for rec prn. Pt likely to have refeeding syndrome - monitor electrolytes daily Lab / Micro Data Result Diagrams: 11/22/21 12:20 11/25/21 05:36 Labs: Laboratory Results - last 24 hr 11/25/21 05:36: Sodium 141, Potassium 3.0 L, Chloride 108 H, Carbon Dioxide 22.0, Anion Gap 11, BUN 1 L, Creatinine 0.30 L, Estim Creat Clear Calc 39.75, Est GFR (MDRD) Af Amer 283, Est GFR (MDRD) Non-Af 234, BUN/Creatinine Ratio 3.3 L, Glucose 81, Calcium 7.9 L, Total Bilirubin 0.70, AST 16, ALT 7 L, Alkaline Phosphatase 86, Total Protein 5.5 L, Albumin 1.9 L, Globulin 3.6, Albumin/Globulin Ratio 0.5 L Physical Exam Const Constitutional Narrative: weak cough. cachectic. afebrile. Neck no lymphadenopathy Resp normal respiratory effort and no retractions Resp Narrative: Coarse breath sounds bilaterally Cardio regular rate, regular rhythm, S1 normal heart sound and S2 normal heart sound GI normal to inspection, nondistended, normoactive bowel sounds, soft to palpation, non-tender and non-distended Extremity normal to inspection Assessment & Plan Assessment/Plan (1) Esophageal cancer: QUALIFIERS: Malignant neoplasm of esophagus location: upper third Qualified Code(s): C15.3 - Malignant neoplasm of upper third of esophagus (2) Failure to thrive: QUALIFIERS: Failure to thrive age range: in adult Qualified Code(s): R62.7 - Adult failure to thrive (3) Severe protein-calorie malnutrition: (4) Tracheo-esophageal fistula: PLAN: 1. Squamous cell esophageal cancer Nearly circumferential ulcerative mass in the esophagus Patient quit smoking and drinking when she was found to have an esophageal mass on the 7th of this month. Plan: * We will need to have additional staging with a PET scan as outpatient * Follow-up results of bone scan 2. Failure to thrive Due to weight loss and inability to eat or drink adequately 3. Severe protein calorie malnutrition Due to inability to eat or drink adequately. 4. COVID-19 vaccinated 5. CODE STATUS: Patient wishes to be full code. 6. Anemia Previously was anemic back in February but currently hemoglobin is up. We will continue to monitor. Certainly no need for transfusion at this time. She does have macrocytic parameters so we will check labs accordingly. 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 As radiation may not be feasible given this. Plan: * 11/22: Discussed with Dr. Stringer about esophageal stent. In that the patient's not eating or drinking that she would probably more likely benefit from a stent as well as a PEG tube. This was brought to the patient's attention and Dr. Stringer will further discuss with she and her about this. In the meantime, patient was coughing with just sipping so patient will be made n.p.o. and will receive IV fluids in the interim. If patient does get a PEG tube then will consult nutrition for further recommendations about what she will need. * 11/23: Patient declined PEG tube and stent at this time. States that she wishes to talk to oncology as well as her family. I spoke with Dr. Zavala about his situation. Biopsy is still pending and there is no imminent plans for any chemo or radiation therapy at this time. Patient would need further work-up, including up PET scan. Here someone from the office will see and talk with the patient today but no initiation of any treatment whatsoever until the biopsy has been resulted. * 11/24: Patient now in agreement to PEG tube. Notify Dr. Stringer. Continue NPO. * PT OT evaluate and treat. Unclear patient require any therapy upon discharge. * VTE prophylaxis with SCDs. No chemical prophylaxis in light of the upcoming potential procedure but also patient does have an ulcerative mass which could be at risk for further bleeding. Charges/Coding Visit Charges Inpatient E&M: 95185 Subs Hosp L2
[2021-11-25] MEDS: Potassium Chloride 10mEq/100mL 10 MEQ/100 ML IV.SOLN. 100 MEQ IV BOLUS ×4 (13:52→18:13)
[2021-11-25] MEDS: Atropine Sulfate 1% 2 ml Bottle 4 DRP PO ×2 (13:52→20:39)
--- NOTE | 2021-11-25 16:07 | SUR.PREOP ---
PRE-OP TO PACU, PATIENT MOANING AT INTERVALS, TACHYPNEIC IN 30'S.
--- NOTE | 2021-11-25 16:07 | NURSING ---
pt off floor for procedure
--- NOTE | 2021-11-25 17:22 | OP.EGD_ITS ---
Patient Name: Bev Jeffers Procedure Date: 11/25/2021 4:24 PM Date of : 1955 Age: 66 Procedure: Upper GI endoscopy Indications: Personal history of malignant esophageal neoplasm Providers: Roger Stringer DO Medicines: See the Anesthesia note for documentation of the administered medications Patient Profile: This is a 66 year old female. Refer to note in patient chart for documentation of history and physical. Patient has symptoms of dysphagia with both liquids and solids. Complications: No immediate complications. Procedure: Pre-Anesthesia Assessment: - Prior to the procedure, a History and Physical was performed, and patient medications and allergies were reviewed. The risks and benefits of the procedure and the sedation options and risks were discussed with the patient. All questions were answered and informed consent was obtained. Patient identification and proposed procedure were verified by the physician in the pre-procedure area. Mental Status Examination: alert and oriented. Airway Examination: normal oropharyngeal airway and neck mobility. Respiratory Examination: clear to auscultation. CV Examination: normal. Prophylactic Antibiotics: The patient does not require prophylactic antibiotics. Prior Anticoagulants: The patient has taken no previous anticoagulant or antiplatelet agents. ASA Grade Assessment: II - A patient with mild systemic disease. After reviewing the risks and benefits, the patient was deemed in satisfactory condition to undergo the procedure. The anesthesia plan was to use moderate sedation / analgesia (conscious sedation). Immediately prior to administration of medications, the patient was re-assessed for adequacy to receive sedatives. The heart rate, respiratory rate, oxygen saturations, blood pressure, adequacy of pulmonary ventilation, and response to care were monitored throughout the procedure. The physical status of the patient was re-assessed after the procedure. After obtaining informed consent, the endoscope was passed under direct vision. Throughout the procedure, the patient's blood pressure, pulse, and oxygen saturations were monitored continuously. The gastroscope was introduced through the mouth, and advanced to the second part of duodenum. The upper GI endoscopy was accomplished without difficulty. The patient tolerated the procedure well. Moderate Sedation: Moderate (conscious) sedation was administered by the endoscopy nurse and supervised by the endoscopist. The patient's oxygen saturation, heart rate, blood pressure and response to care were monitored. Total physician intraservice time was 15 minutes. Scope In: 4:53:18 PM Scope Out: 5:15:06 PM Total Procedure Duration Time 0 hours 21 minutes 48 seconds Findings: A large, ulcerating mass with no bleeding and no stigmata of recent bleeding was found in the middle third of the esophagus, 20 cm from the incisors. The mass was partially obstructing and circumferential. A medium-sized hiatal hernia was present. The patient was placed in the supine position for PEG placement. The stomach was insufflated to appose gastric and abdominal cee. A site was located in the body of the stomach with excellent transillumination for placement. The abdominal wall was marked and prepped in a sterile manner. The area was anesthetized with 1 mL of 0.5% lidocaine. The trocar needle was introduced through the abdominal wall and into the stomach under direct endoscopic view. A snare was introduced through the endoscope and opened in the gastric lumen. The guide wire was passed through the trocar and into the open snare. The snare was closed around the guide wire. The endoscope and snare were removed, pulling the wire out through the mouth. A skin incision was made at the site of needle insertion. The endoscopically removable 20 Fr Bard gastrostomy tube was lubricated. The G-tube was tied to the guide wire and pulled through the mouth and into the stomach. The trocar needle was removed, and the gastrostomy tube was pulled out from the stomach through the skin. The external bumper was attached to the gastrostomy tube, and the tube was cut to remove the guide wire. The final position of the gastrostomy tube was confirmed by relook endoscopy, and skin marking noted to be 4 cm at the external bumper. The final tension and compression of the abdominal wall by the PEG tube and external bumper were checked and revealed that the bumper was loose and not touching the skin. The feeding tube was capped, and the tube site cleaned and dressed. The second portion of the duodenum was normal. Impression: - Partially obstructing, malignant esophageal tumor was found in the middle third of the esophagus. - Medium-sized hiatal hernia. - Normal second portion of the duodenum. - An endoscopically removable PEG placement was successfully completed. - No specimens collected. Recommendation: - Return patient to [facility] for ongoing care. - PEG tube feedings today. - Continue present medications. Procedure Code(s): --- Professional --- 60553, Esophagogastroduodenoscopy, flexible, transoral; with directed placement of percutaneous gastrostomy tube 34617, 59, Moderate sedation services provided by the same physician or other qualified health farm or ranch animal caretaker performing the diagnostic or therapeutic service that the sedation supports, requiring the presence of an independent trained observer to assist in the monitoring of the patient's level of consciousness and physiological status; initial 15 minutes of intraservice time, patient age 5 years or older CPT copyright 2017 [employer]. All rights reserved. The codes documented in this report are preliminary and upon best second jobs review may be revised to meet current compliance requirements. Roger Stringer DO 11/25/2021 5:22:11 PM This report has been signed electronically. Number of Addenda: 1 Note Initiated On: 11/25/2021 4:24 PM Addendum Number: 1 Addendum Date: 06/24/2022 6:41:34 AM MAC was used for sedation during this procedure. Roger Stringer DO 06/24/2022 6:41:38 AM This report has been signed electronically.
--- NOTE | 2021-11-25 17:23 | OP.CCLET_ITS ---
06/24/2022 David Montenegro MD [address] [id number] Re : Upper GI endoscopy procedure for Bev Jeffers Dear Dr. Montenegro This procedure was performed on Thursday, November 25, 2021. My impressions and recommendations are as follows: Impressions : - Partially obstructing, malignant esophageal tumor was found in the middle third of the esophagus. - Medium-sized hiatal hernia. - Normal second portion of the duodenum. - An endoscopically removable PEG placement was successfully completed. - No specimens collected. Recommendations : - Return patient to [facility] for ongoing care. - PEG tube feedings today. - Continue present medications. My findings are described in the full procedure note, which is enclosed. If I can be of further assistance, please feel free to contact me at . Sincerely, Roger Stringer, 11/25/2021 5:22:11 PM This report has been signed electronically.
[2021-11-25] MEDS: Jevity 1.5 1,000 ML 50 ML GT (20:20)
[2021-11-26] VITALS (15 sets, daily range): BP systolic 99–156; BP diastolic 66–99; PULSE 79–136; RESP 20–45; TEMP 36.6–38.3; O2SAT 92–99
[2021-11-26] MEDS: Morphine 2 MG/ML Syringe IV ×2 (00:41→17:56)
[2021-11-26] MEDS: Atropine Sulfate 1% 2 ml Bottle 4 DRP PO ×3 (00:41→22:48)
[2021-11-26] MEDS: 0.9% Normal Saline 1,000 ML 150 ML IV ×3 (03:14→20:24)
--- NOTE | 2021-11-26 03:47 | RAD_ITS ---
STUDY: X-RAY CHEST REASON FOR EXAM: Female, 66 years old patient with cough. Rule-out aspiration pneumonia. TECHNIQUE: Single AP portable view of the chest. COMPARISON: Chest radiograph dated 10/30/2021. FINDINGS: The lungs are underexpanded. There is left basilar airspace disease and atelectasis. There is interstitial thickening present in both lungs. There is some groundglass attenuation of the right lung base that may represent additional airspace disease. There is no demonstrated pleural abnormality. There is borderline cardiomegaly. Normal mediastinum and michele. Normal visualized pulmonary arteries. There is atherosclerotic calcification of the aortic arch with tortuosity. There are degenerative changes of the spine. There are degenerative changes of both shoulders. There is no demonstrated abnormality of the visualized soft tissue structures of the upper abdomen. RAD/Chest 1 View (Portable) IMPRESSION: Bilateral basilar airspace disease and/or atelectasis could be secondary to aspiration. Electronically Signed: Jennifer Capps MD at 5:14 EST ,
[2021-11-26 03:51] LABS: Bedside Glucose 106 mg/dL (70-110)
[2021-11-26] MEDS: Naloxone 2 MG/2 ML Syringe IV ×2 (03:55→04:13)
--- NOTE | 2021-11-26 04:10 | PCM.PN.BLA ---
Progress Note Seen at the bedside for decreased responsiveness. Patient with a profuse cough. Narcan 2 mg x 2 ordered. Will get a chest x-ray to rule out aspiration pneumonia
--- NOTE | 2021-11-26 04:44 | EKG12_ITS ---
Test Reason : Blood Pressure : / mmHG Vent. Rate : 129 BPM Atrial Rate : 129 BPM P-R Int : 096 ms QRS Dur : 066 ms QT Int : 400 ms P-R-T Axes : 000 -26 090 degrees QTc Int : 586 ms Sinus tachycardia with short GA with occasional Premature ventricular complexes Low voltage QRS Nonspecific ST and T wave abnormality Abnormal ECG Confirmed by NELY ARSHAD, COLBY ([id number]), web editor LOUISA FLOREZ ([id number]) on 11/28/2021 1:05:18 PM Referred By: LORNEZA Confirmed By:COLBY MCKAY MD
[2021-11-26] MEDS: metroNIDAZOLE 500 MG/100 ML BAG 100 MG IV ×3 (04:48→22:46)
[2021-11-26] MEDS: levoFLOXacin IV 500 MG/100 ML BAG 100 MG IV (05:00)
[2021-11-26 05:20] LABS: Absolute Lymphocyte Count 0.91 X10^3/uL (0.83-4.51); Absolute Neutrophil Count 8.4 X10^3/uL (2.0-7.7); Basophil# 0.05 X10^3/uL; Basophil% 0.5 % (0-1); Eosinophil# 0.04 X10^3/uL; Eosinophils% 0.4 % (0-5); Hematocrit 43.2 % (37-47); Hemoglobin 13.4 g/dL (12.0-15.0); Lymphocyte # 0.91 X10^3/ul (0.83-4.51); Lymphocyte % 8.9 % (19-41); Mean Corpuscular Hgb 32.1 pg (27.0-32.0); Mean Corpuscular Volume 103.6 fL (81-99); Mean Platelet Vol. 10.8 fl (6.2-12.0); Monocyte# 0.77 X10^3/uL; Monocyte% 7.6 % (0-10); NRBC Flagged by Analyzer 0 % (0-5); Neutrophil # 8.36 X10^3/uL (2.7-7.7); Neutrophil % 82.2 % (47-70); Platelet Count 244 K/mm3 (150-450); RBC Distribution Width CV 14.3 % (11.6-14.6); Red Blood Count 4.17 M/mm3 (4.2-5.4); White Blood Count 10.2 K/mm3 (4.4-11.0)
[2021-11-26 05:31] LABS: Base Excess -3 mmol/L (-2 to +2); Bicarbonate 20.2 mmol/L (22-26); Blood Gas Specimen Type ART; O2 Delivery Device Cannula; PO2 46 mmHG (75-100); SITE L Brach; SO2 86 % (95-99); Total Carbon Dioxide 21 mmol/L; pCO2 26.5 mmHg (35-45); pH 7.49 (7.35-7.45)
[2021-11-26 05:48] LABS: Anion Gap 13 (5-15); BUN 2 mg/dL (7-18); BUN/Creat Ratio 5.1 RATIO (10-20); Calcium,Total 8.2 mg/dL (8.5-10.1); Chloride 107 mmol/L (98-107); Creatinine, Serum 0.39 mg/dL (0.55-1.02); EST Glomerular Filtration Rate 173 mL/min (>60); Est Glom Filt Rate - Afr Amer 209 mL/min (>60); Estimated Creatinine Clearance 42.08 ml/min; Glucose 89 mg/dL (74-106); Magnesium 1.5 mg/dL (1.6-2.6); Potassium 3.8 mmol/L (3.5-5.1); Sodium Level 141 mmol/L (136-145)
--- NOTE | 2021-11-26 06:20 | PCM.PN.HOSP ---
Subjective Subjective Patient with tachycardia; burst of SVT and tachypnea. Mag is low; K is 3.8; replace both. Attempted to reach , Rishi to discuss goals of care. Patient is approaching care at the ICU if she does not turn around. Meanwhile antibiotics initiated for sepsis secondary to aspiration pneumonia. Meets SIRS criteria with tachycardia, tachypnea. Also QSOFA is 2. Get blood cultures; lactic acid. Objective Data Objective Data Vital Signs: Vital Signs Temp Pulse Resp BP Pulse Ox 98.1 F 124 H 42 H 153/97 H 97 11/25/21 20:30 11/26/21 05:28 11/26/21 05:28 11/25/21 20:30 11/26/21 05:28 Oxygen Flow Rate (L/min) 3 Oxygen Delivery Method Nasal Cannula Weight: 48.166 kg Body Mass Index (BMI) 17.7 Intake & Output: Intake and Output for Last 24 Hours 11/24/21 11/25/21 11/26/21 23:59 23:59 23:59 Intake Total 2857.5 / 2857.5 4395.83 / 4953.33 1655.0 / 1655.0 Output Total 400 / 400 Balance 2857.5 / 2857.5 3995.83 / 4553.33 1655.0 / 1655.0 Medical Nutrition Assessment Dietitian: Malnutrition Criteria Met Start: 11/23/21 11:33 Freq: Status: Active Protocol: Document 11/23/21 11:33 ANITA (Rec: 11/23/21 11:33 [facility] [id number]) Nutrition Malnutrition Evidence of Malnutrition Exists Yes Evidenced By Suboptimal Energy Intake ( Severe),Weight Loss (Severe) Clinical Problem Chronic Disease or Condition Related Malnutrition Etiology related to new dx of esophageal cancer and pt complaints of difficulty swallowing and chronic coughing making it difficulty to consume adequate nutrition to meet est nutritional needs Signs/Symptoms as evidenced by <50%+ po intake and 25.6% wt loss x 1 yr. Pt with obvious fat/ muscle loss in temporal/ clavicle, acromion process/ arms and upper body. Status Active Problem Recommendation Dietitian Recommendations/Changes As medically able, rec HALEY to liberal Regular w/ po supplements - consistency per IMPORT COORDINATION AND PRODUCTION HEAD. If NPO to continue and if in accordance w/ pt/family wishes , rec nutrition support to help prevent further decline in pt nutritional status - consult RD/LD for rec prn. Pt likely to have refeeding syndrome - monitor electrolytes daily Lab / Micro Data Result Diagrams: 11/26/21 05:15 11/26/21 05:15 Labs: Laboratory Results - last 24 hr 11/25/21 05:36: Sodium 141, Potassium 3.0 L, Chloride 108 H, Carbon Dioxide 22.0, Anion Gap 11, BUN 1 L, Creatinine 0.30 L, Estim Creat Clear Calc 39.75, Est GFR (MDRD) Af Amer 283, Est GFR (MDRD) Non-Af 234, BUN/Creatinine Ratio 3.3 L, Glucose 81, Calcium 7.9 L, Total Bilirubin 0.70, AST 16, ALT 7 L, Alkaline Phosphatase 86, Total Protein 5.5 L, Albumin 1.9 L, Globulin 3.6, Albumin/Globulin Ratio 0.5 L 11/26/21 03:35: POC Glucose 106 11/26/21 05:15: WBC 10.2, RBC 4.17 L, Hgb 13.4, Hct 43.2, MCV 103.6 H, MCH 32.1 H, MCHC 31.0 L, RDW Std Deviation 55.0 H, RDW Coeff of Ismael 14.3, Plt Count 244, MPV 10.8, Immature Gran % (Auto) 0.400, Neut % (Auto) 82.2 H, Lymph % (Auto) 8.9 L, [place] % (Auto) 7.6, Eos % (Auto) 0.4, Baso % (Auto) 0.5, Absolute Neuts (auto) 8.4 H, Absolute Lymphs (auto) 0.91, Nucleated RBC % 0 11/26/21 05:15: Sodium 141, Potassium 3.8, Chloride 107, Carbon Dioxide 21.0, Anion Gap 13, BUN 2 L, Creatinine 0.39 L, Estim Creat Clear Calc 42.08, Est GFR (MDRD) Af Amer 209, Est GFR (MDRD) Non-Af 173, BUN/Creatinine Ratio 5.1 L, Glucose 89, Calcium 8.2 L, Magnesium 1.5 L ABG Data ABG results: ABG 11/26/21 05:23 Specimen Type ART Sample Site L Brach pH 7.49 H Bicarbonate Actual 20.2 L Total CO2 21 Base Excess -3 L O2 Saturation 86 L ABG pCO2 26.5 L ABG pO2 46 L Meño Test N/A O2 Delivery Device Cannula Liter Flow 3.0 Radiography Diagnostic Testing: Radiology Impression Chest X-Ray 11/26/21 03:47 IMPRESSION: Bilateral basilar airspace disease and/or atelectasis could be secondary to aspiration. Electronically Signed: Jennifer Capps MD at 5:14 EST Reading Location ID and State: [facility] / [place] , Service support ,
[2021-11-26] MEDS: Magnesium Sulfate 4gm/100mL 4 GM/100 ML IV.SOLN. IV (06:32)
[2021-11-26] MEDS: Potassium Chloride 10mEq/100mL 10 MEQ/100 ML IV.SOLN. 100 MEQ IV BOLUS ×2 (06:32→07:46)
[2021-11-26] MEDS: 0.9% Saline Lock 10 ML Syringe IV (06:33)
--- NOTE | 2021-11-26 06:55 | PCM.PN.BLA ---
Progress Note I discussed CODE STATUS with who stated the patient should remain a full code.
--- NOTE | 2021-11-26 07:15 | PCM.PN.HOSP ---
Subjective Subjective Patient is a 66-year-old female who was brought to the emergency department by her on account of progressive generalized weakness, low appetite. Patient had recently undergone an endoscopy on 11/20/2021 which found partially obstructing malignant esophageal tumor found in the proximal esophageal and mid esophagus Objective Data Objective Data Vital Signs: Vital Signs Temp Pulse Resp BP Pulse Ox 98.1 F 136 H 42 H 153/97 H 97 11/25/21 20:30 11/26/21 05:45 11/26/21 05:45 11/25/21 20:30 11/26/21 05:28 Oxygen Flow Rate (L/min) 3 Oxygen Delivery Method Nasal Cannula Weight: 48.166 kg Body Mass Index (BMI) 17.7 Intake & Output: Intake and Output for Last 24 Hours 11/24/21 11/25/21 11/26/21 23:59 23:59 23:59 Intake Total 2857.5 / 2857.5 4395.83 / 4953.33 1655.0 / 1655.0 Output Total 400 / 400 Balance 2857.5 / 2857.5 3995.83 / 4553.33 1655.0 / 1655.0 Medical Nutrition Assessment Dietitian: Malnutrition Criteria Met Start: 11/23/21 11:33 Freq: Status: Active Protocol: Document 11/23/21 11:33 ANITA (Rec: 11/23/21 11:33 ANITA [id number]) Nutrition Malnutrition Evidence of Malnutrition Exists Yes Evidenced By Suboptimal Energy Intake ( Severe),Weight Loss (Severe) Clinical Problem Chronic Disease or Condition Related Malnutrition Etiology related to new dx of esophageal cancer and pt complaints of difficulty swallowing and chronic coughing making it difficulty to consume adequate nutrition to meet est nutritional needs Signs/Symptoms as evidenced by <50%+ po intake and 25.6% wt loss x 1 yr. Pt with obvious fat/ muscle loss in temporal/ clavicle, acromion process/ arms and upper body. Status Active Problem Recommendation Dietitian Recommendations/Changes As medically able, rec HALEY to liberal Regular w/ po supplements - consistency per STRUCTURAL WORKER. If NPO to continue and if in accordance w/ pt/family wishes , rec nutrition support to help prevent further decline in pt nutritional status - consult RD/LD for rec prn. Pt likely to have refeeding syndrome - monitor electrolytes daily Lab / Micro Data Result Diagrams: 11/26/21 05:15 11/26/21 05:15 Labs: Laboratory Results - last 24 hr 11/25/21 05:36: Sodium 141, Potassium 3.0 L, Chloride 108 H, Carbon Dioxide 22.0, Anion Gap 11, BUN 1 L, Creatinine 0.30 L, Estim Creat Clear Calc 39.75, Est GFR (MDRD) Af Amer 283, Est GFR (MDRD) Non-Af 234, BUN/Creatinine Ratio 3.3 L, Glucose 81, Calcium 7.9 L, Total Bilirubin 0.70, AST 16, ALT 7 L, Alkaline Phosphatase 86, Total Protein 5.5 L, Albumin 1.9 L, Globulin 3.6, Albumin/Globulin Ratio 0.5 L 11/26/21 03:35: POC Glucose 106 11/26/21 05:15: WBC 10.2, RBC 4.17 L, Hgb 13.4, Hct 43.2, MCV 103.6 H, MCH 32.1 H, MCHC 31.0 L, RDW Std Deviation 55.0 H, RDW Coeff of Ismael 14.3, Plt Count 244, MPV 10.8, Immature Gran % (Auto) 0.400, Neut % (Auto) 82.2 H, Lymph % (Auto) 8.9 L, [place] % (Auto) 7.6, Eos % (Auto) 0.4, Baso % (Auto) 0.5, Absolute Neuts (auto) 8.4 H, Absolute Lymphs (auto) 0.91, Nucleated RBC % 0 11/26/21 05:15: Sodium 141, Potassium 3.8, Chloride 107, Carbon Dioxide 21.0, Anion Gap 13, BUN 2 L, Creatinine 0.39 L, Estim Creat Clear Calc 42.08, Est GFR (MDRD) Af Amer 209, Est GFR (MDRD) Non-Af 173, BUN/Creatinine Ratio 5.1 L, Glucose 89, Calcium 8.2 L, Magnesium 1.5 L ABG Data ABG results: ABG 11/26/21 05:23 Specimen Type ART Sample Site L Brach pH 7.49 H Bicarbonate Actual 20.2 L Total CO2 21 Base Excess -3 L O2 Saturation 86 L ABG pCO2 26.5 L ABG pO2 46 L Meño Test N/A O2 Delivery Device Cannula Liter Flow 3.0 Radiography Diagnostic Testing: Radiology Impression Chest X-Ray 11/26/21 03:47 IMPRESSION: Bilateral basilar airspace disease and/or atelectasis could be secondary to aspiration. Electronically Signed: Jennifer Capps MD at 5:14 EST Reading Location ID and State: [address] [place] [address] , Service support , Physical Exam Narrative GENERAL: Barely responsive ill looking HEENT: Atraumatic; EYES; Anicteric, Normal Conjunctiva NECK; supple, normal thyroid, RESPIRATORY: Diminished to auscultation CARDIOVASCULAR: Regular S1 S2, GI: PEG tube in place : No Renal angle tenderness; EXTREMITIES: edema, no clubbing, MUSCULOSKELETAL: muscle wasting NEURO: Somnolent SKIN: No Rash Assessment & Plan Assessment/Plan (1) Esophageal cancer: QUALIFIERS: Malignant neoplasm of esophagus location: upper third Qualified Code(s): C15.3 - Malignant neoplasm of upper third of esophagus (2) Failure to thrive: QUALIFIERS: Failure to thrive age range: in adult Qualified Code(s): R62.7 - Adult failure to thrive (3) Severe protein-calorie malnutrition: (4) Tracheo-esophageal fistula: PLAN: Patient is a 66-year-old female who was brought to the emergency department by her on account of progressive generalized weakness, low appetite. Patient had recently undergone an endoscopy on 11/20/2021 which found partially obstructing malignant esophageal tumor found in the proximal esophageal and mid esophagus 1. Dysphagia ?Secondary to squamous cell esophageal CA. Patient underwent PEG tube placement on 11/25/2021 2. 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 Has been seen and assessed by both GI as well as radiation oncology and plan is for patient to undergo subsequent evaluation as outpatient however with patient rapidly deteriorating clinical condition discussions were held with family. Patient's CODE STATUS was changed from full code to DNR CC consult placed to hospice 3. Suspected sepsis secondary to aspiration pneumonia. -Sepsis work-up including lactic acid level and fluid resuscitation initiated cultures sent patient is currently on metronidazole as well as levofloxacin 4. Anemia ?Secondary to above monitoring H&H with plans to transfuse hemoglobin falls below 7 5. 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 Tobacco dependence ?Patient recently quit smoking following her diagnosis of esophageal CA 7. Severe protein calorie malnutrition As evidenced by optimal energy intake suboptimal energy intake, severe weight loss and hypoalbuminemia. Patient had a PEG tube placed plan is to consult dietitian for tube feed recommendations 8. DVT prophylaxis Bilateral SCDs Advance planning; did discuss with patient's family ( as well as son regarding regarding patient current clinical condition as well as advanced directives including CODE STATUS.. Did explain the various scenarios involved ( FULL CODE, DNR CCA, DNR CCA with no intubation, and DNR CC and what each meant) patient's family elected to change patient's CODE STATUS from full code to DNR CC. Order was placed. Time spent on discussion 25 minutes. Charges/Coding Visit Charges Inpatient E&M: 26850 Subs Hosp L3 Procedures Hospitalists Procedures: 10656 Advncd Care Plan 30 Min
--- NOTE | 2021-11-26 07:32 | NURSING ---
Patient's son and at bedside and updated on patient. Awaiting Dr. Blake for further assessments and POC.
[2021-11-26 07:36] LABS: Lactic Acid 1.5 mmol/L (0.4-1.9)
--- NOTE | 2021-11-26 08:40 | NURSING ---
Dr. Blake was in and spoke with patient's husbnd and son. They would like some time to discuss code status and will inform staff.
--- NOTE | 2021-11-26 09:26 | NURSING ---
TC to patient's to get a code states update. No answer. Message left to return call CECILE.
[2021-11-26] MEDS: Acetaminophen 650 MG Suppository RC (09:35)
--- NOTE | 2021-11-26 09:47 | NURSING ---
Patient's and son state they would like the patient to be DNRCC. Dr. Blake informed.
--- NOTE | 2021-11-26 10:04 | NURSING ---
Chaplain Macdonald called at this time per husbands request.
--- NOTE | 2021-11-26 11:16 | CASEMGMT ---
Pt screened with [facility] Palliative Care Screening Tool due to new cancer diagnosis, pt met criteria. Discussed with hospitalist and order for hospice consult obtained instead.
--- NOTE | 2021-11-26 12:22 | NURSING ---
TC to patient's regarding sending a Hospice Referral. He states he would like to talk with his daughter and son and then call back with a final decision. MS3 number was given to Rishi. Will await call back.
--- NOTE | 2021-11-26 12:33 | CON.PCM.ON_ITS ---
Assessment & Plan Assessment/Plan (1) Esophageal cancer: Status: Acute Code(s): C15.9 - Malignant neoplasm of esophagus, unspecified Qualifiers: Malignant neoplasm of esophagus location: upper third Qualified Code(s): C15.3 - Malignant neoplasm of upper third of esophagus Plan: Patient has advanced malignancy suspected metastases to lung poor performance status. She has become increasingly unresponsive. I advise comfort measures only on the hospice program. Discussed over the phone with the patient's Gwyn. I answered his questions to the best of my knowledge. Life expectancy is less than 6 months and therefore she is hospice appropriate. The rapid decline over the course of the past couple of weeks suggests that it will be much shorter. He is meeting with the hospice team later the afternoon of November 26, 2021. Thank you for involving me in her care. Discussed over the phone with Dr. Umana. Carolann Zavala MD [place], [facility] Divisions of Medical Oncology & Hematology Department of Internal Medicine [place] [phone] This note was generated using a voice recognition system software. Although it was reviewed by the author prior to finalization, it may still contain incorrect words, spelling, and punctuation that were not noted when reviewing prior to saving. If a clinically significant typo or inaccurately typed phrase is noted, please notify the author. (2) Tracheo-esophageal fistula: Status: Acute Code(s): J86.0 - Pyothorax with fistula (3) Mass of right lung: Status: Acute Code(s): R91.8 - Other nonspecific abnormal finding of lung field (4) Malignant cachexia: Status: Acute Code(s): R64 - Cachexia (5) Failure to thrive: Status: Acute Qualifiers: Failure to thrive age range: in adult Qualified Code(s): R62.7 - Adult failure to thrive (6) Severe protein-calorie malnutrition: Status: Acute Code(s): E43 - Unspecified severe protein-calorie malnutrition HPI Consult Data Date of Service:: 11/26/21 PCP / Referring Provider: Dr. David Montenegro MD Attending: Dr. Kenan Blake MD Chief Complaint Chief Complaint: Dysphagia, weight loss History of Present Illness History of Present Illness: 66-year-old female who presented with progressive (months) painless dysphagia and weight loss. November 12, 2021: CTA chest demonstrated severe irregular thickening of the wall the mid esophagus extending into the subcarinal region concerning for esophageal malignancy. No evidence of pulmonary embolus is appreciated. November 20, 2021: EGD. demonstrated a large ulcerating mass with bleeding and stigmata of recent bleeding found in the proximal esophagus and into the mid esophagus approximately 20 cm from the incisors. The mass was partially obstructing and partially circumferential involving about two thirds of the lumen circumference. Biopsies were taken. There were 2 malignant appearing intrinsic stenosis found at 20 and 28 cm from the incisors and these were graded as moderately severe circumferential scarring or stenosis with the narrowest stenosis measuring about 6 cm in length. Grade 1 varices were found in the lower third of the esophagus and were 5 mm in diameter. There is moderate portal hypertensive gastropathy found in the entire examined stomach. Duodenum was normal. Pathology was consistent with invasive squamous cell carcinoma. November 22, 2021: Patient presented to the emergency room with inability to eat due to swallowing difficulty and projectile vomiting. November 23, 2021: CT chest abdomen and pelvis: IMPRESSION: 2.4 cm x 1.4 cm pleural-based mass in the posterior medial segment of the right upper lobe. A neoplastic process should BE ruled out. There is a 3.5 cm x 4.7 cm irregular soft tissue mass in the proximal midportion of the esophagus. 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 Diffuse fatty infiltration of the liver. Small amount of free fluid in the pelvis. Advanced Directives Power of Head Of Precision Targeting: Yes Living Will: Yes [facility] Medical History (Updated 11/26/21 @ 12:[address] Carolann Zavala MD) Alcohol use Ambulates with cane Anemia Chronic cough Difficulty chewing Difficulty swallowing Esophageal cancer Gastric reflux High cholesterol History of steroid therapy Hoarseness Hx of retinal detachment Hypertension Mass of right lung Osteoarthritis Post-menopausal Shortness of breath on exertion Smoker Walker as ambulation aid Home Medications diazepam 5 mg PO TID PRN 11/22/21 [History Last Taken 11/19/21] omeprazole 20 mg PO DAILY 11/22/21 [History Last Taken 11/18/21] potassium chloride 20 meq PO DAILY 11/22/21 [History Last Taken 11/18/21] mnjxuatutdqy-lmuvvslkh-ganwpdy 5 ml PO Q6H PRN 11/22/21 [History Last Taken 11/22/21 08:30] Allergy/AdvReac Type Severity Reaction Status Date / Time bee venom protein (honey bee) Allergy Hives Verified 11/20/21 12:28 Penicillins [PCN] Allergy Swelling Verified 11/20/21 12:28 Family History (Updated 11/22/21 @ 14:[address] Pedro Brasher DO) Other Cancer Surgical History Hx of foot surgery Social History (Updated 11/22/21 @ 14:[address] Pedro Brasher DO) Smoking Status: Former smoker quit date: 11/12/21 alcohol intake: former year quit: 2021 details: She drinks alcohol occasionally. She did not drink for the last 4 weeks. ROS ROS Narrative Obtained by review of records, patient was unresponsive. Constitutional Constitutional: Reports fatigue and weight loss ENT HEENT: Reports dysphagia Cardiovascular Cardiovascular: Reports dyspnea Respiratory/Chest Respiratory/Chest: Reports cough and dyspnea Gastrointestinal Gastrointestinal: Reports anorexia, dysphagia, nausea and vomiting; Denies abdominal pain Neurologic Neurologic: Reports other Details: Patient became increasingly unresponsive Physical Exam Narrative Patient is cachectic, unresponsive, ECOG 4. Appeared comfortable Vital Signs Temperature 99.8 F H 11/26/21 10:59 Temperature Source Axillary 11/26/21 10:59 Pulse Rate 121 H 11/26/21 10:59 Pulse Strength Normal (2+) 11/25/21 22:00 Respiratory Rate 42 H 11/26/21 10:59 Respiratory Effort 11/26/21 07:30 Respiratory Depth Shallow 11/26/21 07:30 Respiratory Pattern Normal 11/26/21 11:31 Blood Pressure 114/74 11/26/21 10:59 Blood Pressure Mean 87 11/26/21 10:59 Blood Pressure Source Monitor 11/26/21 10:59 Blood Pressure Position Semi-Fowlers 11/26/21 10:59 Blood Pressure Location Left Arm 11/26/21 10:59 Baseline BP 152/85 11/25/21 17:57 Pulse Ox 92 11/26/21 10:59 Oxygen Delivery Method Airvo 11/26/21 10:59 Oxygen Flow Rate (L/min) 40 11/26/21 10:59 Fraction of Inspired Oxygen (FIO2) 45 11/26/21 11:31 Laboratory Results - last 24 hr 11/26/21 03:35: POC Glucose 106 11/26/21 05:15: WBC 10.2, RBC 4.17 L, Hgb 13.4, Hct 43.2, MCV 103.6 H, MCH 32.1 H, MCHC 31.0 L, RDW Std Deviation 55.0 H, RDW Coeff of Ismael 14.3, Plt Count 244, MPV 10.8, Immature Gran % (Auto) 0.400, Neut % (Auto) 82.2 H, Lymph % (Auto) 8.9 L, Edmonson % (Auto) 7.6, Eos % (Auto) 0.4, Baso % (Auto) 0.5, Absolute Neuts (auto) 8.4 H, Absolute Lymphs (auto) 0.91, Nucleated RBC % 0 11/26/21 05:15: Sodium 141, Potassium 3.8, Chloride 107, Carbon Dioxide 21.0, Anion Gap 13, BUN 2 L, Creatinine 0.39 L, Estim Creat Clear Calc 42.08, Est GFR (MDRD) Af Amer 209, Est GFR (MDRD) Non-Af 173, BUN/Creatinine Ratio 5.1 L, Glucose 89, Calcium 8.2 L, Magnesium 1.5 L 11/26/21 06:55: Lactic Acid 1.5 Microbiology 11/26/21 07:20 Sputum, Expectorated/Coughed Gram Stain - Final Diagnostic Data Bone Scan Nuclear Medicine 11/23/21 10:28 IMPRESSION: Focal uptake in the posterior aspect of the left 11th and 10th ribs as well as in the right 11th rib suggestive of a traumatic injury rather than metastatic deposits. Electronically Signed: Allen Leigh MD at 8:28 EST , I personally reviewed patient CT chest abdomen and pelvis images of November 23, 2021 and concur with reported findings. Chest/Abdomen/Pelvis CT 11/23/21 10:32 IMPRESSION: 2.4 cm x 1.4 cm pleural-based mass in the posterior medial segment of the right upper lobe. A neoplastic process should BE ruled out. There is a 3.5 cm x 4.7 cm irregular soft tissue mass in the proximal midportion of the esophagus. 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 Diffuse fatty infiltration of the liver. Small amount of free fluid in the pelvis. Electronically Signed: Allen Leigh MD at 12:06 EST , Chest X-Ray 11/26/21 03:47 IMPRESSION: Bilateral basilar airspace disease and/or atelectasis could be secondary to aspiration. Electronically Signed: Jennifer Capps MD at 5:14 EST ,
--- NOTE | 2021-11-26 13:26 | NURSING ---
Confirmed with Rishi (patient's ) that he is in agreement with a Hospice referral. MARICRUZ Seay made aware of same.
--- NOTE | 2021-11-26 14:20 | CASEMGMT ---
JORDYN CM called and faxed referral to [facility]. SW updated.
--- NOTE | 2021-11-26 14:27 | CHAPLAIN ---
Type of Pastoral Visit _x__ Initial Visit ___ Follow-up Visit ___ On-call Visit ___ General Patient Visit ___ Spiritual Assessment ___ Family Conference ___ Bereavement ___ Rapid Response ___ Code Blue ___ Other (describe below) Pastoral Care Referral From ___ Patient _x__ Family ___ Nurse ___ Physician ___ Correspondence Specialist ___ Forge Operator ___ Other (describe below) Sacrament/Intervention ___ Active listening ___ Anointing ___ Gnosticism ___ Bereavement ___ Communion ___ Maggie exploration ___ ___ Life review _x__ Prayer ___ Reconciliation ___ Sacrament of Sick _x__ Supportive presence ___ Wedding ___ Other (describe below) Pastoral Comments stopped by several times while patient was sleeping and no one else in the room; this time patient is awake and introduction from this forging press operator is given; pt is unable to speak but does nod the head in understanding of questions; offer of prayer accepted; spoke words of comfort and encouragement; spouse was not present unfortunately as he was the one requesting the visit
--- NOTE | 2021-11-26 16:15 | CASEMGMT ---
Social Work Note Pt's Rishi is present at [facility]. SW in to speak with pt, Rishi and pt's son. SW introduced self and role at [facility]. Rishi states his daughter is coming to town, should be in town by tomorrow. Rishi states that once she arrives to town, they will all meet with Hospice. SW offered to call Hospice and update them but Rishi states he will call them himself. SW offered support to pt. MARICRUZ then received call from Colt Bernal RN, CM who states Hospice called her. Hospice to reach out to pt's family to arrange meeting time. Plan: Hospice consult Geena Doherty POSTING CLERK, CUSHION MAKER HAND
--- NOTE | 2021-11-26 16:44 | CPS ---
taken off Airvo to 2Lpm NC SPO2 96%
[2021-11-27] VITALS (9 sets, daily range): BP systolic 137–174; BP diastolic 77–125; PULSE 88–99; RESP 18–20; TEMP 36.4–37.1; O2SAT 86–96
[2021-11-27] MEDS: 0.9% Normal Saline 1,000 ML 150 ML IV (03:16)
[2021-11-27] MEDS: Atropine Sulfate 1% 2 ml Bottle 4 DRP PO ×2 (03:18→08:52)
[2021-11-27] MEDS: metroNIDAZOLE 500 MG/100 ML BAG 100 MG IV ×2 (06:00→12:56)
--- NOTE | 2021-11-27 06:04 | NURSING ---
Pt with very moist cough, congestion, rhonchi t/o lung smith - Dr Baker notified & order to DC IVFs.
--- NOTE | 2021-11-27 07:11 | PCM.PN.HOSP ---
Subjective Subjective Patient seen appears restless. Patient is scheduled to undergo evaluation by hospice service. Objective Data Objective Data Vital Signs: Vital Signs Temp Pulse Resp BP Pulse Ox 98.7 F 99 20 H 167/94 H 91 11/27/21 02:30 11/27/21 02:30 11/27/21 02:30 11/27/21 02:30 11/27/21 02:30 Oxygen Flow Rate (L/min) 2 Oxygen Delivery Method Nasal Cannula Weight: 48.166 kg Body Mass Index (BMI) 17.7 Intake & Output: Intake and Output for Last 24 Hours 11/25/21 11/26/21 11/27/21 23:59 23:59 23:59 Intake Total 4395.83 / 4953.33 3820.0 / 3820.0 1482.5 / 1482.5 Output Total 400 / 400 200 / 200 Balance 3995.83 / 4553.33 3820.0 / 3620.0 1282.5 / 1282.5 Medical Nutrition Assessment Dietitian: Malnutrition Criteria Met Start: 11/23/21 11:33 Freq: Status: Active Protocol: Document 11/26/21 12:22 [facility] (Rec: 11/26/21 12:22 [facility] [id number]) Nutrition Malnutrition Evidence of Malnutrition Exists Yes Evidenced By Suboptimal Energy Intake ( Severe),Weight Loss (Severe) Clinical Problem Chronic Disease or Condition Related Malnutrition Etiology related to new dx of esophageal cancer and pt complaints of difficulty swallowing and chronic coughing making it difficulty to consume adequate nutrition to meet est nutritional needs Signs/Symptoms as evidenced by <50% po intake and 18.4% wt loss x 1 yr. Pt with obvious fat/muscle loss in temporal/clavicle, acromion process/arms and upper body. Status Active Problem Recommendation Dietitian Recommendations/Changes Will continue Jevity 1.5 and increase tf by 10 ml/hr every 12 hours as pt tolerates until goal rate 50 ml/hr. Flush w/ 150 ml every 4 hours. TF at goal rate will provide 1800 bucky/ 76 gm pro/ 1812 ml free water/day. Pt likely to have refeeding syndrome - monitor electrolytes daily Lab / Micro Data Result Diagrams: 11/26/21 05:15 11/26/21 05:15 Labs: Laboratory Results - last 24 hr 11/26/21 06:55: Lactic Acid 1.5 Micro: Microbiology 11/26/21 07:20 Sputum, Expectorated/Coughed Gram Stain - Final Radiography Diagnostic Testing: Radiology Impression Bone Scan Nuclear Medicine 11/23/21 10:28 IMPRESSION: Focal uptake in the posterior aspect of the left 11th and 10th ribs as well as in the right 11th rib suggestive of a traumatic injury rather than metastatic deposits. Electronically Signed: Allen Leigh MD at 8:28 EST , Physical Exam Narrative GENERAL: Awake but restless HEENT: Atraumatic; EYES; Anicteric, Normal Conjunctiva NECK; supple, normal thyroid, RESPIRATORY: Diminished to auscultation, bilateral rhonchi CARDIOVASCULAR: Regular S1 S2, GI: PEG tube in place : No Renal angle tenderness; EXTREMITIES: edema, no clubbing, MUSCULOSKELETAL: muscle wasting NEURO: Somnolent SKIN: No Rash Assessment & Plan Assessment/Plan (1) Esophageal cancer: QUALIFIERS: Malignant neoplasm of esophagus location: upper third Qualified Code(s): C15.3 - Malignant neoplasm of upper third of esophagus (2) Failure to thrive: QUALIFIERS: Failure to thrive age range: in adult Qualified Code(s): R62.7 - Adult failure to thrive (3) Severe protein-calorie malnutrition: (4) Tracheo-esophageal fistula: PLAN: Patient is a 66-year-old female who was brought to the emergency department by her on account of progressive generalized weakness, low appetite. Patient had recently undergone an endoscopy on 11/20/2021 which found partially obstructing malignant esophageal tumor found in the proximal esophageal and mid esophagus 1. Dysphagia ?Secondary to squamous cell esophageal CA. Patient underwent PEG tube placement on 11/25/2021 2. 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 Has been seen and assessed by both GI as well as radiation oncology and plan is for patient to undergo subsequent evaluation as outpatient however with patient rapidly deteriorating clinical condition discussions were held with family. Patient's CODE STATUS was changed from full code to DNR CC consult placed to hospice -11/27/2021; awaiting hospice evaluation 3. Suspected sepsis secondary to aspiration pneumonia. -Sepsis work-up including lactic acid level and fluid resuscitation initiated cultures sent patient is currently on metronidazole as well as levofloxacin 4. Anemia ?Secondary to above monitoring H&H with plans to transfuse hemoglobin falls below 7 5. 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 Tobacco dependence ?Patient recently quit smoking following her diagnosis of esophageal CA 7. Severe protein calorie malnutrition As evidenced by optimal energy intake suboptimal energy intake, severe weight loss and hypoalbuminemia. Patient had a PEG tube placed plan is to consult dietitian for tube feed recommendations 8. DVT prophylaxis Bilateral SCDs 9. Fluid overload ?Patient IV fluids stopped IV Lasix given for symptomatic treatment Charges/Coding Visit Charges Inpatient E&M: 50432 Subs Hosp L2
[2021-11-27] MEDS: 0.9% Saline Lock 10 ML Syringe IV ×3 (08:51→14:12)
[2021-11-27] MEDS: Morphine 2 MG/ML Syringe IV ×2 (08:52→14:12)
[2021-11-27] MEDS: levoFLOXacin IV 250 MG/50 ML BAG 50 MG IV (09:01)
--- NOTE | 2021-11-27 10:50 | CASEMGMT ---
Social Work Phone call to [facility]. SW spoke with admissions who states pt meeting has been set up today at 4pm at [facility] with pt and family. JORDYN Christensen updated on meeting time. JOSÉ Kelly
[2021-11-27] MEDS: Furosemide 100 MG/10 ML Vial 60 MG IV (11:07)
--- NOTE | 2021-11-27 12:03 | CHAPLAIN ---
Type of Pastoral Visit ___ Initial Visit _x__ Follow-up Visit ___ On-call Visit ___ General Patient Visit ___ Spiritual Assessment ___ Family Conference ___ Bereavement ___ Rapid Response ___ Code Blue ___ Other (describe below) Pastoral Care Referral From ___ Patient _x__ Family ___ Nurse ___ Physician ___ Audit Machine Operator ___ Window Shade Ring Coverer ___ Other (describe below) Sacrament/Intervention _x__ Active listening ___ Anointing ___ Tenriism ___ Bereavement ___ Communion ___ Maggie exploration ___ ___ Life review _x__ Prayer ___ Reconciliation ___ Sacrament of Sick _x__ Supportive presence ___ Wedding ___ Other (describe below) Pastoral Comments family is not present at this visit; patient is alert and able to dialogue; pt speaks with some difficulty and tries to explain her situation although it is not clear how much she can express or how accurately the report might be; pt does welcome prayer and presence; offer of ongoing support given; this call or contact centre team leader will make attempt to see family members who have requested the visit
--- NOTE | 2021-11-28 07:02 | DS.PCM_ITS ---
Providers Date of Admission: 11/22/21 Primary Care Physician: Dr. David Montenegro MD Consultations 11/22/21 15:26 Consult: Gastroenterology Routine Consulting Provider: [facility] Reason for Consult: esophageal cancer EMERGENT Consult: No Notified: Yes Date Notified: 11/22/21 Time Notified: 14:46 Method of Notification: Verbal 11/23/21 07:21 Consult: Oncology/Hematology Routine Consulting Provider: *[facility] Reason for Consult: esophageal mass EMERGENT Consult: No Notified: Yes Date Notified: 11/23/21 Time Notified: 07:22 Method of Notification: Verbal Reason For Visit: DEHYDRATION Diagnosis Discharge Diagnosis (1) Esophageal cancer: Status: Acute Code(s): C15.9 - Malignant neoplasm of esophagus, unspecified Qualifiers: Malignant neoplasm of esophagus location: upper third Qualified Code(s): C15.3 - Malignant neoplasm of upper third of esophagus (2) Failure to thrive: Status: Acute Qualifiers: Failure to thrive age range: in adult Qualified Code(s): R62.7 - Adult failure to thrive (3) Severe protein-calorie malnutrition: Status: Acute Code(s): E43 - Unspecified severe protein-calorie malnutrition (4) Tracheo-esophageal fistula: Status: Acute Code(s): J86.0 - Pyothorax with fistula Medications at Discharge Home Medications diazepam 5 mg PO TID PRN 11/22/21 omeprazole 20 mg PO DAILY 11/22/21 potassium chloride 20 meq PO DAILY 11/22/21 yftdevgudvyz-nwuizirux-xbhdlmn 5 ml PO Q6H PRN 11/22/21 Hospital Course Summary of Care Provided Minutes Spent on Discharge: 45 Hospital Course: Patient is a 66-year-old female who was brought to the emerge ncy department by her on account of progressive generalized weakness, low appetite. Patient had recently undergone an endoscopy on 11/20/2021 which found partially obstructing malignant esophageal tumor found in the proximal esophageal and mid esophagus 1. Dysphagia ?Secondary to squamous cell esophageal CA. Patient underwent PEG tube placement on 11/25/2021 2. 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 Has been seen and assessed by both GI as well as radiation oncology and plan is for patient to undergo subsequent evaluation as outpatient however with patient rapidly deteriorating clinical condition discussions were held with family. Patient's CODE STATUS was changed from full code to DNR CC consult placed to hospice -11/27/2021; awaiting hospice evaluation -?Patient was approved for transfer to hospice 3. Suspected sepsis secondary to aspiration pneumonia. -Sepsis work-up including lactic acid level and fluid resuscitation initiated cultures sent patient is currently on metronidazole as well as levofloxacin 4. Anemia ?Secondary to above monitoring H&H with plans to transfuse hemoglobin falls below 7 5. 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 Tobacco dependence ?Patient recently quit smoking following her diagnosis of esophageal CA 7. Severe protein calorie malnutrition As evidenced by optimal energy intake suboptimal energy intake, severe weight loss and hypoalbuminemia. Patient had a PEG tube placed plan is to consult dietitian for tube feed recommendations 8. DVT prophylaxis Bilateral SCDs 9. Fluid overload ?Patient IV fluids stopped IV Lasix given for symptomatic treatment Physical Exam Narrative GENERAL: Awake but restless HEENT: Atraumatic; EYES; Anicteric, Normal Conjunctiva NECK; supple, normal thyroid, RESPIRATORY: Diminished to auscultation, bilateral rhonchi CARDIOVASCULAR: Regular S1 S2, GI: PEG tube in place : No Renal angle tenderness; EXTREMITIES: edema, no clubbing, MUSCULOSKELETAL: muscle wasting NEURO: Somnolent SKIN: No Rash Weight / BMI Weight Weight: 48.166 kg Body Mass Index (BMI) 17.7 ABG / Lab / Microbiology Data Result Diagrams: 11/26/21 05:15 11/26/21 05:15 Microbiology: Microbiology 11/26/21 07:20 Sputum, Expectorated/Coughed Gram Stain - Final 11/26/21 07:20 Sputum, Expectorated/Coughed Respiratory Culture - Preliminary Appears to be normal respiratory miller. Further studies to follow. Meaningful Use Info Meaningful Use Diagnoses (Choose all that apply): None applicable Discharge Plan Admission Admit Date/Time: 11/22/21 14:40 Attending Provider: Kenan Blake Primary Care Provider: David Montenegro Consulting Providers: Kenan Hernández ; Fernando Sandhu ; Carolann Zavala ; Dell Vale ; Benjamín Rogers ; Sergio Roman ; Richard Umana ; Bing Figueroa TABLE ASSEMBLER Discharge Orders/Prescriptions Prescriptions: No Action potassium chloride 20 mEq/15 mL liquid 20 meq PO DAILY RF: 0 cqzjajobbxhw-fozyxapgp-ambumls 6.25-5-10 mg/5 mL syrup 5 ml PO Q6H PRN (Reason: Cough) RF: 0 omeprazole 20 mg capsule,delayed release(DR/EC) 20 mg PO DAILY RF: 0 diazepam 5 mg tablet 5 mg PO TID PRN (Reason: Spasms) RF: 0 Referrals / Follow Up: David Montenegro MD [Primary Care Provider] - Disposition Disposition (needs filled in before D/C Order can be placed): Hospice in Medical Facility Charges/Coding Visit Charges Inpatient E&M: 21227 Disch Hosp
== END 2021-11-27 19:10 | disposition hospice, inpatient (51) | DRG 374 ==
LOC: ED 14:35 → MS3 15:12
PROVIDERS: Hospitalist; Internal Medicine Gastroenterology; Emergency Provider Emergency Medicine; PCP Family Medicine; Visit Provider Internal Medicine
PROC: 0DJ08ZZ Inspection of Upper Intestinal Tract, Via Natural or Artificial Opening Endoscopic (ICD-10-PCS; CPT 43235; principal; 2021-11-25 17:00)
DX: C15.3 Malignant neoplasm of upper third of esophagus (principal); A41.9 Sepsis, unspecified organism; J86.0 Pyothorax with fistula; J69.0 Pneumonitis due to inhalation of food and vomit; E43 Unspecified severe protein-calorie malnutrition; Q39.4 Esophageal web; I85.00 Esophageal varices without bleeding; I47.1 Supraventricular tachycardia; K76.6 Portal hypertension; C78.00 Secondary malignant neoplasm of unspecified lung; Z68.1 Body mass index [BMI] 19.9 or less, adult; K22.2 Esophageal obstruction; C15.4 Malignant neoplasm of middle third of esophagus; E86.0 Dehydration; E78.5 Hyperlipidemia, unspecified; I10 Essential (primary) hypertension; K44.9 Diaphragmatic hernia without obstruction or gangrene; K29.50 Unspecified chronic gastritis without bleeding; D64.9 Anemia, unspecified; K31.89 Other diseases of stomach and duodenum; K21.9 Gastro-esophageal reflux disease without esophagitis; M19.90 Unspecified osteoarthritis, unspecified site; E87.70 Fluid overload, unspecified; Z87.891 Personal history of nicotine dependence; R62.7 Adult failure to thrive; R13.10 Dysphagia, unspecified; Z66 Do not resuscitate; Z79.899 Other long term (current) drug therapy
CPT/HCPCS: 31720; 36415; 36600; 71045; 71260; 74177; 78306; 80048; 80053; 81001; 82607; 82746; 82803; 82962; 83605; 83735; 84443; 85025; 87040; 87070; 87205; 87426; 88305; 88312; 88331; 88341; 88342; 93005; 94003; 94660; 94762; 97802; 99285; A9503; J7030; J7120; Q9967; A4216; J1940; J2405